=== PATIENT | female | born 1960 | race Caucasian/White ===

== ENCOUNTER → 2019-05-13 09:11 | Outpatient (BNVA) | payer BC, SELFPAY | PROVIDERS: Family Provider Family Medicine; PCP Family Medicine; Visit Provider Nurse Practitioner | DX: F41.0 Panic disorder [episodic paroxysmal anxiety] (principal); F41.1 Generalized anxiety disorder | CPT/HCPCS: 99213 ==

== ENCOUNTER 2019-05-28 17:34 | Inpatient (IN) | payer BC, SELFPAY ==
[2019-05-28] VITALS (31 sets, daily range): BP systolic 77–133; BP diastolic 55–114; PULSE 61–83; RESP 14–18; TEMP 34.3–35.4; O2SAT 81–100; BMI 37.2
--- NOTE | 2019-05-28 17:37 | ED_ITS ---
Entered by Arielle Mackay, acting as scribe for HPI - Overdose General: Chief Complaint: Overdose Stated Complaint: Overdose Time Seen by Provider: 05/28/19 17:37 Source: EMS Mode of arrival: EMS Limitations: other (intubated patient) History of Present Illness: HPI Narrative: 59 yo Female presents to ED intubated by EMS with complaint of overdose. Per EMS, patient made a suicidal threat to a friend/family member who found the patient down and called 911. EMS reports that bystanders were doing CPR on the patient upon their arrival but the patient had a strong pulse the whole time. EMS states that the bystander reported to dispatch that the patient was ineffectually breathing and dispatch instructed the bystander to perform CPR. Per EMS, patient's friend/family reported that the patient must have overdosed on alcohol, oxycodone, and/or xanax. Pt's came to the ED and reports that the patient is an alcoholic and has been trying to quit drinking. Pt's states that when the patient attempts to quit drinking, she gets depressed. Pt's states that the patient was found unresponsive in her car in the driveway by her daughter after the patient stated that she was going to kill herself. Pt's states that there is most likely alcohol and xanax in the patient's system. complaint: intentional overdose : Intent: suicide attempt How Overdose Was Discovered: called family/friend Treatments Prior to Arrival: narcan and other (intubation) Review of Systems General: Reports: ROS unobtainable due to endotracheal tube and ROS unobtainable due to medical condition PFS ED PFSH: Statuses (acute, chronic, etc) shown below reflect problem list status as previously entered and may not be historically accurate Medical History (Updated 05/28/19 @ 22:35 by Gerry Garcia MD, [facility] – [place]) Adhesive capsulitis (Acute) Alcohol abuse (Acute) Anxiety (Acute) Cervical radiculopathy (Acute) Major depressive disorder (Acute) Osteoarthritis of shoulder (Acute) Surgical History (Updated 05/28/19 @ 21:33 by Yolis Champagne MD) No pertinent past surgical history (Acute) Family History (Updated 05/28/19 @ 21:30 by Yolis Champagne MD) Other Hyperlipidemia Hypertension Denies family history of Psychiatric illness Suicide Stroke Social History (Updated 05/28/19 @ 21:31 by Yolis Champagne MD) Smoking and tobacco status: heavy tobacco smoker cigarettes Packs smoked per day: 1 Alcohol intake: current Alcohol intake frequency: few times a week Alcohol type: beer Alcohol use comment: She gets depressive episodes when she drinks alcohol she never had alcohol withdrawal symptoms Substance/Drug Use: never Household members: spouse Housing: House Marital status: Physical Exam Const: COMMON NORMALS: average body habitus and well nourished EXAM LIMI TATIONS: altered mental status ORIENTATION/CONSCIOUSNESS: Yes obtunded HENMT: COMMON NORMALS: normocephalic, head/scalp atraumatic, external ears normal, moist oral mucous membranes, oropharynx normal and gingiva normal HEAD & SCALP: normocephalic and atraumatic EXTERNAL EAR: Yes external ears normal Eye: COMMON NORMALS: PERRL, EOMs intact bilaterally, conjunctivae normal and no scleral icterus CONJUNCTIVA: Yes conjunctivae normal PUPIL: Yes PERRL Chest: COMMONS NORMALS: inspection of chest normal and palpation of chest normal Resp: COMMON NORMALS: no retractions; negative for normal respiratory effort AUSCULTATION: crackles Cardio: COMMON NORMALS: regular rate, regular rhythm, S1 normal heart sound, S2 normal heart sound, no gallops, no clicks, no murmurs, no rub and peripheral pulses 2+ throughout RATE: regular rate RHYTHM: regular rhythm HEART SOUNDS: S1 normal and S2 normal PERIPHERAL PULSES: pulses 2+ throughout GI: COMMON NORMALS: normal to inspection, nondistended, normoactive bowel sounds, soft to palpation, no hepatosplenomegaly, no masses and no bruits PALPATION: Yes soft and Yes no hepatosplenomegaly Extremity: COMMON NORMALS: normal to inspection, full ROM, normal capillary refill, no joint enlargement, no clubbing, cyanosis or edema and no pedal edema Neuro: CYNTHIA COMA SCALE: document GCS findings (sedated by EMS) Skin: COMMON NORMALS: no rashes or lesions noted, no wounds, skin turgor normal, no jaundice, no petechiae and no mottling GENERAL SKIN EXAM: no rashes or lesions noted and turgor normal Procedures Intubation Time out performed: No sedative: none Laryngoscope: Adilene ET Tube Size: 8 ET Tube Uncuffed: No Tube Secured Depth (cm): 24 Tube Secured Location: lips Tube Placement Confirmation: visualized tube passing through cords, equal breath sounds bilaterally, no breath sounds over epigastrium and confirmation by capnometry Patient Tolerated Procedure: well and no complications Intubation Complications: none Course Vital Signs: Vital signs: Vital Signs Temperature 93.7 F L 05/28/19 17:35 Pulse Rate 68 05/28/19 21:44 Respiratory Rate 16 05/28/19 21:44 Blood Pressure 85/55 05/28/19 21:44 Pulse Oximetry 95 05/28/19 21:44 MDM - Overdose MDM Narrative: Medical decision making narrative: 59-year-old female patient who was brought into the emergency department in acute respiratory failure secondary to an undetermined cause. She may have overdosed on some of her benzodiazepines although her drug screen was negative for that. She was intoxicated with alcohol. Her did say that she has a history of alcohol abuse. In the emergency department she was emergently intubated and placed on mechanical ventilation. She had a lot of food debris of particles in her airway. Suction as much as possible. She is admitted to the intensive care unit for further evaluation and management. Significant lab in the emergency department was hypokalemia and a significant delta on her 2-hour troponin. After discussion with the hospitalist we felt that her 2-hour troponin bump was secondary to stress from her illness on her heart and not a true non-STEMI. So she is not anticoagulated for treating a non-STEMI. We wait on her 6-hour troponin. Lab Data: Labs: Lab Results 05/28/19 05/28/19 05/28/19 Range/Units 17:45 18:06 18:06 WBC (4.0-10.0) 10^3/ uL RBC (4.1-5.3) 10^6/u L Hgb (11.5-15.3) g/dL Hct (37.0-47.0) % MCV (81-99) fL MCH (28.0-34.0) pg MCHC (30.0-36.0) g/dL RDW (12.1-15.1) % Plt Count (130-400) 10^3/c mm MPV (7.4-10.4) fL Neut % (Auto) % Lymph % (Auto) % [place] % (Auto) % Eos % (Auto) % Baso % (Auto) % Neut # (Auto) (1.8-7.7) 10^3/u L Lymph # (Auto) (0.8-4.8) 10^3/u L [place] # (Auto) (0.2-0.9) 10^3/u L Eos # (Auto) (0.0-0.8) 10^3/u L Baso # (Auto) (0.0-0.1) 10^3/u L Nucleated RBC % (a uto) % Nucleated RBCs # /100WBC Specimen Type Arterial Sample Site Brachial, right ABG pH 7.23 L (7.35-7.45) ABG pCO2 46.2 H (35-45) mmHg ABG pO2 439.0 H* (80.0-100.0) mmH g ABG HCO3 19.4 L (22-26) mmol/L ABG O2 Saturation 100.0 ABG Base Excess -8.0 L (-2.0-2.0) mmol/ L Chung Test N/a A-a O2 Gradient 211.6 H (5-10) mmHg Hematocrit 40.5 (37-47) % Hgb O2 Saturation 97.1 (95-100) % Carboxyhemoglobin 2.3 (0.4-20.1) %THgb Methemoglobin 0.6 (0.4-1.5) % Total Hemoglobin 13.2 (12-16) g/dL Sodium 143.0 (131-143) mmol/L Potassium 2.8 L (3.5-5.0) mmol/L Glucose 116.0 H (70-115) mg/dL Ionized Calcium 1.1 (1.1-1.4) mmol/L O2 Delivery Device Ambu O2 Liters/Min 15.0 % FiO2 100.0 % Python Django Developer ID gd Chloride (98-107) mmol/L Carbon Dioxide (22-29) mmol/L Anion Gap (5-19) BUN (6-20) mg/dL Creatinine (0.5-0.9) mg/dL GFR Calculation (90-130) mL/min Calcium (8.6-10.0) mg/Dl Total Bilirubin (0.15-1.2) mg/dL AST (0-32) U/L ALT (0-33) U/L Alkaline Phosphata se (35-105) IU/L Troponin T Baselin e (0-10) ng/mL Troponin T 120 Min [place] (0-10) ng/mL Delta Troponin T (0-10) ABS# Total Protein (6.6-8.7) g/dL Albumin (3.5-5.2) g/dL Globulin (1.3-4.6) g/dL Urine Color Straw (Yellow) Urine Appearance Clear (CLEAR) Urine pH 5 (5-7) Ur Specific Gravit y 1.010 (1.005-1.030) Urine Protein Neg (Negative) Urine Glucose (UA) Norm (Normal) Urine Ketones Negative (Negative) Urine Occult Blood Neg (Negative) Urine Nitrate Negative (Negative) Urine Bilirubin Neg (NEGATIVE) Urine Urobilinogen Norm (Negative) mg/dL Ur Leukocyte Trina ase Negative (Negative) Urine Opiates Scre en Negative (Negative) ng/mL Ur Barbiturates Sc reen Negative (Negative) ng/mL Ur Phencyclidine S crn Negative (Negative) ng/mL Ur Amphetamines Sc reen Negative (Negative) ng/mL U Benzodiazepines Scrn Negative (Negative) ng/mL Urine Cocaine Scre en Negative (Negative) ng/mL U Marijuana (THC) Screen Positive H (Negative) ng/mL Ethyl Alcohol (0-10) mg/dL 05/28/19 05/28/19 05/28/19 Range/Units 18:40 18:40 18:40 WBC (4.0-10.0) 10^3/ uL RBC (4.1-5.3) 10^6/u L Hgb (11.5-15.3) g/dL Hct (37.0-47.0) % MCV (81-99) fL MCH (28.0-34.0) pg MCHC (30.0-36.0) g/dL RDW (12.1-15.1) % Plt Count (130-400) 10^3/c mm MPV (7.4-10.4) fL Neut % (Auto) % Lymph % (Auto) % [place] % (Auto) % Eos % (Auto) % Baso % (Auto) % Neut # (Auto) (1.8-7.7) 10^3/u L Lymph # (Auto) (0.8-4.8) 10^3/u L [place] # (Auto) (0.2-0.9) 10^3/u L Eos # (Auto) (0.0-0.8) 10^3/u L Baso # (Auto) (0.0-0.1) 10^3/u L Nucleated RBC % (a uto) % Nucleated RBCs # /100WBC Specimen Type Sample Site ABG pH (7.35-7.45) ABG pCO2 (35-45) mmHg ABG pO2 (80.0-100.0) mmH g ABG HCO3 (22-26) mmol/L ABG O2 Saturation ABG Base Excess (-2.0-2.0) mmol/ L Chung Test A-a O2 Gradient (5-10) mmHg Hematocrit (37-47) % Hgb O2 Saturation (95-100) % Carboxyhemoglobin (0.4-20.1) %THgb Methemoglobin (0.4-1.5) % Total Hemoglobin (12-16) g/dL Sodium 139 (131-143) mmol/L Potassium 2.7 L* (3.5-5.0) mmol/L Glucose 152 H (70-115) mg/dL Ionized Calcium (1.1-1.4) mmol/L O2 Delivery Device O2 Liters/Min % FiO2 % Python Django Developer ID Chloride 99 (98-107) mmol/L Carbon Dioxide 21 L (22-29) mmol/L Anion Gap 21.7 H (5-19) BUN 11 (6-20) mg/dL Creatinine 0.8 (0.5-0.9) mg/dL GFR Calculation 73.4 L (90-130) mL/min Calcium 8.8 (8.6-10.0) mg/Dl Total Bilirubin 0.2 (0.15-1.2) mg/dL AST 34 H (0-32) U/L ALT 24 (0-33) U/L Alkaline Phosphata se 82 (35-105) IU/L Troponin T Baselin e 7 (0-10) ng/mL Troponin T 120 Min [place] (0-10) ng/mL Delta Troponin T (0-10) ABS# Total Protein 6.9 (6.6-8.7) g/dL Albumin 3.9 (3.5-5.2) g/dL Globulin 3.0 (1.3-4.6) g/dL Urine Color (Yellow) Urine Appearance (CLEAR) Urine pH (5-7) Ur Specific Gravit y (1.005-1.030) Urine Protein (Negative) Urine Glucose (UA) (Normal) Urine Ketones (Negative) Urine Occult Blood (Negative) Urine Nitrate (Negative) Urine Bilirubin (NEGATIVE) Urine Urobilinogen (Negative) mg/dL Ur Leukocyte Trina ase (Negative) Urine Opiates Scre en (Negative) ng/mL Ur Barbiturates Sc reen (Negative) ng/mL Ur Phencyclidine S crn (Negative) ng/mL Ur Amphetamines Sc reen (Negative) ng/mL U Benzodiazepines Scrn (Negative) ng/mL Urine Cocaine Scre en (Negative) ng/mL U Marijuana (THC) Screen (Negative) ng/mL Ethyl Alcohol 237 H (0-10) mg/dL 05/28/19 05/28/19 Range/Units 19:15 21:10 WBC 13.9 H (4.0-10.0) 10^3/ uL RBC 3.83 L (4.1-5.3) 10^6/u L Hgb 11.9 (11.5-15.3) g/dL Hct 36.9 L (37.0-47.0) % MCV 96.3 (81-99) fL MCH 31.1 (28.0-34.0) pg MCHC 32.2 (30.0-36.0) g/dL RDW 12.1 (12.1-15.1) % Plt Count 198 (130-400) 10^3/c mm MPV 8.8 (7.4-10.4) fL Neut % (Auto) 78.0 % Lymph % (Auto) 13.7 % [place] % (Auto) 6.0 % Eos % (Auto) 0.6 % Baso % (Auto) 0.4 % Neut # (Auto) 10.9 H (1.8-7.7) 10^3/u L Lymph # (Auto) 1.9 (0.8-4.8) 10^3/u L [place] # (Auto) 0.8 (0.2-0.9) 10^3/u L Eos # (Auto) 0.1 (0.0-0.8) 10^3/u L Baso # (Auto) 0.1 (0.0-0.1) 10^3/u L Nucleated RBC % (a uto) 0 % Nucleated RBCs # 0.0 /100WBC Specimen Type Sample Site ABG pH (7.35-7.45) ABG pCO2 (35-45) mmHg ABG pO2 (80.0-100.0) mmH g ABG HCO3 (22-26) mmol/L ABG O2 Saturation ABG Base Excess (-2.0-2.0) mmol/ L Chung Test A-a O2 Gradient (5-10) mmHg Hematocrit (37-47) % Hgb O2 Saturation (95-100) % Carboxyhemoglobin (0.4-20.1) %THgb Methemoglobin (0.4-1.5) % Total Hemoglobin (12-16) g/dL Sodium (131-143) mmol/L Potassium (3.5-5.0) mmol/L Glucose (70-115) mg/dL Ionized Calcium (1.1-1.4) mmol/L O2 Delivery Device O2 Liters/Min % FiO2 % Python Django Developer ID Chloride (98-107) mmol/L Carbon Dioxide (22-29) mmol/L Anion Gap (5-19) BUN (6-20) mg/dL Creatinine (0.5-0.9) mg/dL GFR Calculation (90-130) mL/min Calcium (8.6-10.0) mg/Dl Total Bilirubin (0.15-1.2) mg/dL AST (0-32) U/L ALT (0-33) U/L Alkaline Phosphata se (35-105) IU/L Troponin T Baselin e (0-10) ng/mL Troponin T 120 Min [place] 20.88 H (0-10) ng/mL Delta Troponin T 13.88 H* (0-10) ABS# Total Protein (6.6-8.7) g/dL Albumin (3.5-5.2) g/dL Globulin (1.3-4.6) g/dL Urine Color (Yellow) Urine Appearance (CLEAR) Urine pH (5-7) Ur Specific Gravit y (1.005-1.030) Urine Protein (Negative) Urine Glucose (UA) (Normal) Urine Ketones (Negative) Urine Occult Blood (Negative) Urine Nitrate (Negative) Urine Bilirubin (NEGATIVE) Urine Urobilinogen (Negative) mg/dL Ur Leukocyte Trina ase (Negative) Urine Opiates Scre en (Negative) ng/mL Ur Barbiturates Sc reen (Negative) ng/mL Ur Phencyclidine S crn (Negative) ng/mL Ur Amphetamines Sc reen (Negative) ng/mL U Benzodiazepines Scrn (Negative) ng/mL Urine Cocaine Scre en (Negative) ng/mL U Marijuana (THC) Screen (Negative) ng/mL Ethyl Alcohol (0-10) mg/dL Imaging Data^: CT Head: Radiologist's impression: [place] [address] CT Scan Report Signed Patient: Ted victoria #: [id number] : 1960Acct#:[id number] Age/Sex: 59 / FADM Date: 05/28/19 Loc: ERRoom/Bed: Attending Dr: Ordering Provider/Ordering MD: Gerry Garcia MD, [facility] – [place] Date of Service: 05/28/19 Procedure(s): CT head wo con* [id number] Accession Number(s): [id number] Report Number: [id number] PROCEDURE INFORMATION: Exam: CT Head Without Contrast Exam date and time: 05/28/2019 7:33 PM Age: 59 years old Clinical indication: Injury or trauma; Fall; Injury history: Od; Additional info: AMS TECHNIQUE: Imaging protocol: Computed tomography of the head without contrast. Total DLP: 951.53 mGy-cm Radiation optimization: All CT scans at this facility use at least one of these dose optimization techniques: automated exposure control; mA and/or kV adjustment per patient size (includes targeted exams where dose is matched to clinical indication); or iterative reconstruction. COMPARISON: No relevant prior studies available. FINDINGS: Brain: There is no evidence of infarct, john-white matter differentiation is preserved. There is no hemorrhage or extra-axial collection. There is no mass. Ventricles: There is no hydrocephalus. Bones/joints: Unremarkable. No acute fracture. Sinuses: There is mucosal thickening in the sinuses. Mastoid air cells: There is a trace of fluid in the right mastoids. Soft tissues: Unremarkable. CT/CT head wo con* [id number] IMPRESSION: No intracranial injury or lesion. Radiation Dose CTDIVOL = (mGy): DLP = 951.53 (mGy-cm) Dictated By:Rocco Diaz MD Signed By:Rocco Diaz Date/Time:05/28/192017 DD/ 15 CT C-Spine: Radiologist's impression: [address] [address] [address] Scan Report Signed Patient: Ted victoria #: [id number] : 1960Acct#:[id number] Age/Sex: 59 / FADM Date: 05/28/19 Loc: ERRoom/Bed: Attending Dr: Ordering Provider/Ordering MD: Gerry Garcia MD, [facility] – [place] Date of Service: 05/28/19 Procedure(s): CT cervical spin wo con* [id number] Accession Number(s): [id number] Report Number: [id number] PROCEDURE INFORMATION: Exam: CT Cervical Spine Without Contrast Exam date and time: 05/28/2019 7:33 PM Age: 59 years old Clinical indication: Injury or trauma; Fall; Injury history: Od; Initial encounter; Blunt trauma TECHNIQUE: Imaging protocol: Computed tomography images of the cervical spine without contrast. Total DLP: 960.48 mGy-cm Radiation optimization: All CT scans at this facility use at least one of these dose optimization techniques: automated exposure control; mA and/or kV adjustment per patient size (includes targeted exams where dose is matched to clinical indication); or iterative reconstruction. COMPARISON: No relevant prior studies available. FINDINGS: Tubes, catheters and devices: The tip of the endotracheal tube is at the dimitry. Vertebrae: No acute fracture. Normal alignment. Discs/Spinal canal/Neural foramina: No spinal stenosis. No neural foraminal narrowing. No significant disc disease. Soft tissues: Unremarkable. Lungs: There are areas of consolidation in the upper lobes. CT/CT cervical spin wo con* [id number] IMPRESSION: 1. No evidence of cervical spine fracture. 2. Tip of endotracheal tube is noted to be at the dimitry and should be retracted 2-3 cm. There are areas of consolidation in the upper lobes. Radiation Dose CTDIVOL = (mGy): DLP = 960.48 (mGy-cm) Dictated By:Rocco Diaz MD Signed By:Rocco Diaz MDSigned Date/Time:05/28/192022 DD/ 21 EKG Data^: EKG 1: Attestation: I personally reviewed and interpreted this EKG as follows: EKG interpretation date: 05/28/19 EKG interpretation time: 18:44 Prior EKG tracings: not available for review Interpretation: Normal sinus rhythm. Heart rate 73. Normal axis. No ST elevation or ST changes. Q waves in V4 V5 V6. Critical Care Time Critical Care Time: Critical Care Time: Yes Total Critical Care Time: 45 Attestation: This case had a high probability of a clinically significant, sudden, or life threatening deterioration of this patient's condition which required my full and direct attention, intervention and personal management. Discharge Plan Discharge Patient Disposition: Admitted As Inpatient Admit Provider: Yolis Champagne Clinical Impression: Respiratory failure requiring intubation, Alcohol abuse, Aspiration pneumonitis Condition: Stable Interventions: ED Discharge Assessment Last Done: 05/28/19 21:44 Discharge Date/Time: 05/28/19 21:49 Coding Level of Care Code ED Screen Cleaner for Chg Fwd Exam Problem Focused The documentation recorded by the Thompson landa Carmen, accurately reflects the service I personally performed and the decisions made by me, Gerry Garcia MD, [facility] – [place], [place] May 28, 2019 17:34
--- NOTE | 2019-05-28 17:48 | XR_ITS ---
WS: [id number] CHEST XRAY TECHNIQUE: Portable chest. CLINICAL INFORMATION: sedation COMPARISON: None. FINDINGS: Tubes/Lines: Endotracheal tube with tip above the dimitry measuring 13 mm. Enteric tube with tip below the diaphragm. Heart: Normal cardiac silhouette. Aortic calcification. Lungs: Lungs are clear. No consolidation or pleural effusion. Chronic emphysematous changes. Bones: Normal visualized bony structures. XR/XR chest 1V portable [id number] IMPRESSION: 1. Endotracheal tube with tip 13 mm above the dimitry. 2. Enteric tube with tip below the diaphragm. 3. No acute pulmonary infiltrates.
--- NOTE | 2019-05-28 17:52 | CTR_ITS ---
PROCEDURE INFORMATION: Exam: CT Head Without Contrast Exam date and time: 05/28/2019 7:33 PM Age: 59 years old Clinical indication: Injury or trauma; Fall; Injury history: Od; Additional info: AMS TECHNIQUE: Imaging protocol: Computed tomography of the head without contrast. Total DLP: 951.53 mGy-cm Radiation optimization: All CT scans at this facility use at least one of these dose optimization techniques: automated exposure control; mA and/or kV adjustment per patient size (includes targeted exams where dose is matched to clinical indication); or iterative reconstruction. COMPARISON: No relevant prior studies available. FINDINGS: Brain: There is no evidence of infarct, john-white matter differentiation is preserved. There is no hemorrhage or extra-axial collection. There is no mass. Ventricles: There is no hydrocephalus. Bones/joints: Unremarkable. No acute fracture. Sinuses: There is mucosal thickening in the sinuses. Mastoid air cells: There is a trace of fluid in the right mastoids. Soft tissues: Unremarkable. CT/CT head wo con* [id number] IMPRESSION: No intracranial injury or lesion. Radiation Dose CTDIVOL = (mGy): DLP = 951.53 (mGy-cm)
--- NOTE | 2019-05-28 17:52 | ECG_ITS ---
Measurements Intervals [place] Rate: 73 P: -10 [place]: 174 QRS: 62 QRSD: 90 T: 44 QT: 395 QTc: 436 SINUS RHYTHM NONSPECIFIC T-WAVE ABNORMALITY No previous ECG available for comparison Electronically Signed On 05-29-2019 20:21:51 SCREEN PRINTING SUPERVISOR by Patricia Pennington M.D. [email or web address]
--- NOTE | 2019-05-28 17:57 | CTR_ITS ---
PROCEDURE INFORMATION: Exam: CT Cervical Spine Without Contrast Exam date and time: 05/28/2019 7:33 PM Age: 59 years old Clinical indication: Injury or trauma; Fall; Injury history: Od; Initial encounter; Blunt trauma TECHNIQUE: Imaging protocol: Computed tomography images of the cervical spine without contrast. Total DLP: 960.48 mGy-cm Radiation optimization: All CT scans at this facility use at least one of these dose optimization techniques: automated exposure control; mA and/or kV adjustment per patient size (includes targeted exams where dose is matched to clinical indication); or iterative reconstruction. COMPARISON: No relevant prior studies available. FINDINGS: Tubes, catheters and devices: The tip of the endotracheal tube is at the dimitry. Vertebrae: No acute fracture. Normal alignment. Discs/Spinal canal/Neural foramina: No spinal stenosis. No neural foraminal narrowing. No significant disc disease. Soft tissues: Unremarkable. Lungs: There are areas of consolidation in the upper lobes. CT/CT cervical spin wo con* [id number] IMPRESSION: 1. No evidence of cervical spine fracture. 2. Tip of endotracheal tube is noted to be at the dimitry and should be retracted 2-3 cm. There are areas of consolidation in the upper lobes. Radiation Dose CTDIVOL = (mGy): DLP = 960.48 (mGy-cm)
[2019-05-28 18:00] LABS: ABG PCO2 46.2 mmHg (35-45); ABG PH Result 7.23 (7.35-7.45); Alveolar-Arterial Oxygen Gradi 211.6 mmHg (5-10); Arterial Blood Gas Hematocrit 40.5 % (37-47); Blood Gas Sample Site Brachial, right; Blood Gas Sample Type Arterial; Carboxyhemoglobin 2.3 %THgb (0.4-20.1); HCO3 ABG 19.4 mmol/L (22-26); HGB O2 Sat 97.1 % (95-100); Ionized Calcium Level - ABG 1.1 mmol/L (1.1-1.4); Methemoglobin 0.6 % (0.4-1.5); Oxygen Device AMBU; Potassium Level - ABG 2.8 mmol/L (3.5-5.0); Total Hemoglobin 13.2 g/dL (12-16)
[2019-05-28 18:27] LABS: Add Urine Microscopic? NO
[2019-05-28 18:32] LABS: Bilirubin Urine Neg (NEGATIVE); Blood Urine Neg (Negative); Glucose Urine UA Norm (Normal); Ketones Urine Negative (Negative); Leukocyte Esterase Urine Negative (Negative); Nitrate Urine Negative (Negative); Protein Urine Neg (Negative); Urine Appearance Clear (CLEAR); Urine Color Straw (Yellow); Urobilinogen Urine Norm (Negative); pH Urine 5 (5-7)
[2019-05-28] MEDS: fentaNYL 50 mcg/mL INJ 2mL 100 MCG IVP (18:42)
[2019-05-28] MEDS: vecuronium 10 mg SDV IV (18:42)
[2019-05-28 18:47] LABS: Amphetamines Screen Urine Negative (Negative); Barbiturates Screen Urine Negative (Negative); Benzodiazepines Screen Urine Negative (Negative); Cocaine Screen Urine Negative (Negative); Opiate Screen Urine Negative (Negative); PCP Screen Urine Negative (Negative); THC Screen Urine Positive (Negative)
[2019-05-28 19:02] LABS: Troponin(5th) Baseline 7 ng/mL (0-10)
[2019-05-28 19:03] LABS: Alanine Aminotransferase 24 U/L (0-33); Albumin Level 3.9 g/dL (3.5-5.2); Alkaline Phosphatase 82 IU/L (35-105); Anion Gap 21.7 (5-19); Aspartate Amino Transferase 34 U/L (0-32); Blood Urea Nitrogen 11 mg/dL (6-20); Calcium 8.8 mg/Dl (8.6-10.0); Carbon Dioxide 21 mmol/L (22-29); Chloride 99 mmol/L (98-107); Glomerular Filtration Rate 73.4 mL/min (90-130); Glucose 152 mg/dL (74-109); Sodium 139 mmol/L (136-145); Total Bilirubin 0.2 mg/dL (0.15-1.2); Total Protein 6.9 g/dL (6.6-8.7)
[2019-05-28] MEDS: propofol 1,000 MG/100 ML INJ 1 MG (19:04)
[2019-05-28 19:14] LABS: Potassium 2.7 mmol/L (3.5-5.1)
[2019-05-28 19:20] LABS: Basophils # 0.1 10^3/uL (0.0-0.1); Basophils % 0.4 %; Eosinophils # 0.1 10^3/uL (0.0-0.8); Eosinophils % 0.6 %; Hematocrit 36.9 % (37.0-47.0); Hemoglobin 11.9 g/dL (11.5-15.3); Lymphocytes # 1.9 10^3/uL (0.8-4.8); Lymphocytes % 13.7 %; Mean Corpuscular HGB Conc 32.2 g/dL (30.0-36.0); Mean Corpuscular Hemoglobin 31.1 pg (28.0-34.0); Mean Corpuscular Volume 96.3 fL (81-99); Mean Platelet Volume 8.8 fL (7.4-10.4); Monocytes # 0.8 10^3/uL (0.2-0.9); Neutrophils # 10.9 10^3/uL (1.8-7.7); Nucleated Red Blood Cells % 0 %; Platelet Count 198 10^3/cmm (130-400); Red Blood Count 3.83 10^6/uL (4.1-5.3); Red Cell Distribution Width 12.1 % (12.1-15.1); White Blood Count 13.9 10^3/uL (4.0-10.0)
[2019-05-28 19:52] LABS: Alcohol Level 237 mg/dL (0-10)
--- NOTE | 2019-05-28 19:52 | ECG_ITS ---
Measurements Intervals [place] Rate: 83 P: 62 VT: 178 QRS: 59 QRSD: 89 T: 44 QT: 456 QTc: 538 SINUS RHYTHM PROLONGED QT INTERVAL No previous ECG available for comparison Electronically Signed On 05-29-2019 20:32:04 MOLECULAR BIOLOGY PROFESSOR by Patricia Pennington M.D. [email or web address]
[2019-05-28] MEDS: piperacillin-tazobactam 3.375 GM in sodium chloride 0.9% (plus) 50 ML IV (20:43)
[2019-05-28] MEDS: sodium chloride 0.9% 1,000 ML 100 ML IV (21:20)
--- NOTE | 2019-05-28 21:23 | P.HP_ITS ---
Providers/Chief Complaint Admitting Physician: Yolis Champagne MD Chief Complaint: Overdose History of Present Illness sandra victoria is a 59 year old female who carries diagnosis of major depressive disorder, alcohol abuse, anxiety, osteoarthritis, cervical radiculopathy was brought in by EMS when she was found unresponsive on her driveway. and daughter is at the bedside. Daughter is stating that she got a phone call from 1 of the neighbors regarding her mother's concerning condition while she was in her car in her driveway. When her daughter checked up on her she was awake and coherent, but she seemed a little bit lethargic and drowsy she attributed her symptoms secondary to alcohol intake, she went back in her car to wait for her father to come home. Within 5 to 10 minutes her breathing got worse and she became unresponsive, her started CPR on her for about 8 to 10 minutes until EMS arrived. She had palpable pulse with soft blood pressures and hypothermia, she was brought to [facility] ER. She was intubated by ER physician for her inability to protect her airways. When I examined the patient she was opening her eyes and moving her arms, blood pressure was fluctuating between systolic 96-1 10, fentanyl was added on top of propofol, she had ventilator settings 450, PEEP of 8, FiO2 45% At the bedside norepinephrine and Zosyn were running She received 3 L of normal saline During intubation for particles were found in her mouth Family stating that she only takes Xanax she never does marijuana however she smokes 1 pack/day, I requested lab to take another look at her urine tox because it is negative for benzodiazepine and positive for marijuana CT scan is showing infiltrates in upper zone is stating that she drinks on and off but when she drinks she gets depressed and sometimes talks about suicidal ideation otherwise she enjoys her work and she has been a hairdresser for a long time, no recent social stressors Review of Systems General: Reports: ROS unobtainable due to endotracheal tube Medications/Allergies Allergies Allergy/AdvReac Type Severity Reaction Status Date / Time No Known Allergies Allergy Verified 05/28/19 17:48 PFSH Acute PFSH: Statuses (acute, chronic, etc) shown below reflect problem list status as previously entered and may not be historically accurate Medical History (Updated 05/28/19 @ 21:29 by Yolis Champagne MD) Adhesive capsulitis (Acute) Alcohol abuse (Acute) Anxiety (Acute) Cervical radiculopathy (Acute) Major depressive disorder (Acute) Osteoarthritis of shoulder (Acute) Surgical History (Updated 05/28/19 @ 21:33 by Yolis Champagne MD) No pertinent past surgical history (Acute) Family History (Updated 05/28/19 @ 21:30 by Yolis Champagne MD) Other Hyperlipidemia Hypertension Denies family history of Psychiatric illness Suicide Stroke Social History (Updated 05/28/19 @ 21:31 by Yolis Champagne MD) Smoking and tobacco status: heavy tobacco smoker cigarettes Packs smoked per day: 1 Alcohol intake: current Alcohol intake frequency: few times a week Alcohol type: beer Alcohol use comment: She gets depressive episodes when she drinks alcohol she never had alcohol withdrawal symptoms Substance/Drug Use: never Household members: spouse Housing: House Marital status: Vitals/I&O/Wt Last Vital Signs Temp 93.7 F L 05/28/19 17:35 Pulse 67 05/28/19 21:15 Resp 16 05/28/19 19:23 BP 102/80 05/28/19 21:15 Pulse Ox 100 05/28/19 21:15 05/28/19 05/28/19 05/28/19 06:59 14:59 22:59 Intake Total 117.734 / 117.734 Balance 117.734 / 117.734 Weight last 48 hrs Weight 95.254 kg Physical Exam Narrative: EXAM NARRATIVE: Patient is intubated and sedated with propofol and fentanyl CMV ventilator PEEP 8, FiO2 45%, tidal volume 450 At the bedside Levophed, fentanyl, propofol, Zosyn is running Patient is opening her eyes able to follow my commands, moving her upper extremities, Cervical collar has been removed, no apparent facial trauma Atraumatic normocephalic scalp Sluggish to respond pupils doll's eye movement present Gag reflex positive Bilateral assisted breath sounds with rhonchi present bilaterally Abdomen soft nontender nondistended bowel sounds present No apparent gross abnormalities of her extremities No signs of ischemia gangrene or ulcers on her skin exam Urinary Catheter Management^: More: Cath Placed During This Visit: no Data : 05/28/19 19:15 05/28/19 18:40 Micro: Microbiology 05/28/19 18:10 Gram Stain - Final Sputum - Endotracheal Tube Aspirate A&P Assessment and plan (1) Alcohol abuse: Status: Acute Code(s): F10.10 - Alcohol abuse, uncomplicated (2) Smoker: Status: Acute Code(s): F17.200 - Nicotine dependence, unspecified, uncomplicated (3) Hypokalemia: Status: Acute Code(s): E87.6 - Hypokalemia (4) Respiratory failure requiring intubation: Status: Acute Code(s): J96.90 - Respiratory failure, unspecified, unspecified whether with hypoxia or hypercapnia (5) Aspiration pneumonitis: Status: Acute Code(s): J69.0 - Pneumonitis due to inhalation of food and vomit Additional A&P Information Acute hypercapnic respiratory failure Patient is intubated and sedated for her inability to protect her airways Patient is currently doing well on CMV ventilator settings PEEP 8, FiO2 45%, blood gas has been reviewed which is showing hyperoxygenation, I have reduced PEEP to 5 with FiO2 less than 40% Currently requiring vasopressors for blood pressure support, she got 2 L of normal saline in ER, I will keep her on normal saline at 75 mL/h, titrate off propofol and use fentanyl for sedation Aspiration pneumonia Secondary to inability to protect airways We will cover her with Zosyn for now She meets sepsis criteria with leukocytosis, low-grade temperature, and evidence of infiltrates on chest imaging Acute on chronic alcohol abuse Family stating that she drinks on and off and when she drinks she gets very depressive and sometimes suicidal After extubation needs psych consult Not sure at the moment whether she had any suicidal ideation or planning 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 no recent social stressors She takes alprazolam 1 mg 3 times a day on as-needed basis, she does not take marijuana I have asked lab to take another look at her U tox CIWA protocol Thiamine and folic acid Blood alcohol level 237 without history of intubation or withdrawal seizures in the past Mild increase in troponin I believe this is secondary to her alcohol induced stress on her myocardium, will repeat EKG and wait for 6-hour delta troponin Metabolic acidosis with respiratory decompensation secondary to alcohol abuse with concomitant use of Xanax I will check lactic acid Hypokalemia: Repleted, will check mag level Full code DVT prophylaxis: Lovenox Will need psych evaluation after extubation Attestations Medical Necessity Statement*: Anticipating her stay to cross more than 2 midnights because of respiratory failure and alcohol abuse Time Spent in Patient Care: (>than 50% of time spent in counselling and/or direct pt care on unit) . 45 Coding Level of Care Code Acute Anesthesiology Physician Assistant for Jason Fwd Diagnoses Alcohol abuse F10.10 Smoker F17.200 Hypokalemia E87.6 Respiratory failure requiring intubation J96.90 Aspiration pneumonitis J69.0
[2019-05-28 21:27] LABS: Troponin 5 2HR 20.88 ng/mL (0-10)
[2019-05-28 21:35] LABS: Troponin 5 2HR Delta 13.88 ABS# (0-10)
[2019-05-28 23:25] LABS: Lactic Acid 3.6 mmol/L (0.5-2.2); Lipase 12 U/L (13-60); Magnesium 1.8 mg/dL (1.7-2.3); Phosphorus 2.3 mg/dL (2.5-4.5)
[2019-05-28] MEDS: enoxaparin 40 mg/0.4 mL Syringe SUBCUT (23:25)
[2019-05-28] MEDS: sodium chloride 0.9% 1,000 ML 75 ML IV (23:26)
[2019-05-28] MEDS: propofol 1,000 MG/100 ML INJ 28.6 MG IV (23:30)
[2019-05-29] VITALS (187 sets, daily range): BP systolic 78–145; BP diastolic 44–90; PULSE 71–103; RESP 14–22; TEMP 36.4–38.8; O2SAT 91–100
[2019-05-29 00:08] LABS: Troponin 5 6HR 15.72 ng/L (0-10); Troponin 5 6HR Delta 8.72 ng/L (0-12)
[2019-05-29 00:45] LABS: ABG PCO2 29.6 mmHg (35-45); ABG PH Result 7.37 (7.35-7.45); Arterial Blood Gas Hematocrit 39.5 % (37-47); Base Excess ABG -6.8 mmol/L (-2.0-2.0); Blood Gas Allen Test Pos; Blood Gas Sample Site Radial, right; Blood Gas Sample Type Arterial; Blood Gas Tidal Volume 0.45; HCO3 ABG 17.2 mmol/L (22-26); Oxygen Device VENT
[2019-05-29 02:39] LABS: Glucose Point of Care 105 mg/dL (70-110)
[2019-05-29] MEDS: LORazepam 2 mg/mL INJ 1 mL IVP (02:51)
[2019-05-29 03:14] LABS: Basophils % 0.2 %; Eosinophils % 0.1 %; Hematocrit 38.7 % (37.0-47.0); Hemoglobin 12.5 g/dL (11.5-15.3); Lymphocytes # 3.8 10^3/uL (0.8-4.8); Lymphocytes % 20.6 %; Mean Corpuscular HGB Conc 32.3 g/dL (30.0-36.0); Mean Corpuscular Hemoglobin 30.7 pg (28.0-34.0); Mean Corpuscular Volume 95.1 fL (81-99); Mean Platelet Volume 8.6 fL (7.4-10.4); Monocytes # 0.9 10^3/uL (0.2-0.9); Monocytes % 4.8 %; Neutrophils # 13.7 10^3/uL (1.8-7.7); Neutrophils % 73.8 %; Nucleated Red Blood Cells % 0 %; Platelet Count 274 10^3/cmm (130-400); Red Blood Count 4.07 10^6/uL (4.1-5.3); Red Cell Distribution Width 12.3 % (12.1-15.1); White Blood Count 18.6 10^3/uL (4.0-10.0)
[2019-05-29 03:27] LABS: Alanine Aminotransferase 25 U/L (0-33); Albumin Level 3.5 g/dL (3.5-5.2); Alkaline Phosphatase 71 IU/L (35-105); Aspartate Amino Transferase 30 U/L (0-32); Blood Urea Nitrogen 7 mg/dL (6-20); Calcium 8.3 mg/Dl (8.6-10.0); Carbon Dioxide 18 mmol/L (22-29); Chloride 105 mmol/L (98-107); Globulin 2.5 g/dL (1.3-4.6); Glomerular Filtration Rate 126.3 mL/min (90-130); Glucose 99 mg/dL (74-109); Sodium 139 mmol/L (136-145); Total Bilirubin 0.2 mg/dL (0.15-1.2)
[2019-05-29 03:28] LABS: Lactic Acid 1.9 mmol/L (0.5-2.2)
--- NOTE | 2019-05-29 03:42 | PC.NURSE ---
DR JUN ALTAMIRANO WAS CALLED, PT THRASHING IN BED. PT SCORED ON CIWA, ATIVAN WAS GIVEN. NO NEW ORDERS WHERE GIVEN.
[2019-05-29] MEDS: piperacillin-tazobactam 3.375 GM in sodium chloride 0.9% (plus) 50 ML IV ×3 (04:33→20:37)
[2019-05-29] MEDS: propofol 1,000 MG/100 ML INJ 28.6 MG IV (04:56)
[2019-05-29 05:30] LABS: ABG PCO2 39.4 mmHg (35-45); ABG PH Result 7.33 (7.35-7.45); Arterial Blood Gas Hematocrit 38.7 % (37-47); Base Excess ABG -4.9 mmol/L (-2.0-2.0); Blood Gas Allen Test Pos; Blood Gas Sample Site Radial, right; Blood Gas Sample Type Arterial; Blood Gas Tidal Volume 0.4; HCO3 ABG 20.7 mmol/L (22-26); Oxygen Device VENT; PO2 ABG 88.2 mmHg (80.0-100.0)
--- NOTE | 2019-05-29 06:38 | PC.NURSE ---
SHIFT SUMMARY PT HAS REMAINED INTUBATED. PT HAS BEEN FEBRILE. DR ALTAMIRANO AWARE AND ORDERING BLOOD CULTURES. PT LUNGS REMAIN COARSE AT TIMES. PT HAS BEEN THRASHING AROUND IN BED AT TIMES. PT HAS HAD ADEQUATE URINE OUTPUT.
--- NOTE | 2019-05-29 08:30 | US_ITS ---
WS: [id number] RIGHT UPPER QUADRANT ULTRASOUND HISTORY: ruq pain COMPARISON: None available. Liver: 14.1 cm in length. Normal size liver. No mass or intrahepatic dilatation. Gallbladder: Normally distended gallbladder with no stones or wall thickening. CBD: 3.8 mm Pancreas: Not visualized. Right kidney: Mild atrophy. No hydronephrosis. No solid mass. Normal echogenicity with no mass or hy dronephrosis. Aorta and IVC: Unremarkable. No ascites. US/US abdomen limited [id number] IMPRESSION: 1. Negative gallbladder. 2. No bile duct dilatation.
[2019-05-29] MEDS: ipratropium-albuterol 3 mL Neb INHALATION ×4 (08:51→23:07)
--- NOTE | 2019-05-29 08:59 | PC.PHAR ---
Vancomycin dosing per Pharmacy 1500mg Q8h Patient: Floor: Age: 59 yo Serum creatinine: 0.5 mg/dL Height: 63.0 Inches Weight (kg): 95 IBW (kg): 52.40 Dosing wt(kg): 95 Estimated Creatinine clearance (ml/min): 130 Clearance limited to 130 ml/min to reduce risk of overdosing. CRCL method: Cockcroft and Gault using adjusted body weight Drug selected: Vancomycin Loading dose (mg): Vd (liters): 66.5 (factor used: 0.7 L/kg) Luis (hr-1): 0.112 Half life (hrs): 6.19 CLvanco= 7.448 L/hr Recommended dose: 1500 mg Interval: 8 hrs Infusion time (hrs): 1 Predicted peak (mcg/mL): 36.1 Predicted trough (mcg/mL): 16.48 Total body weight is being used for vancomycin dosing. Recommendations: Give Vancomycin 1500 mg q 8 hrs with an expected Cpeak of 36.1 mcg/ml and an expected Ctrough of 16.48 mcg/ml
[2019-05-29] MEDS: folic acid 1 mg Tablet PO (09:13)
[2019-05-29] MEDS: chlordiazePOXIDE 10 mg Capsule PO ×3 (09:13→20:40)
[2019-05-29] MEDS: multivitamin therapeutic Tablet 1 TAB PO (09:13)
[2019-05-29] MEDS: thiamine 100 mg Tablet PO (09:13)
[2019-05-29] MEDS: pantoprazole 40 mg SDV IVP (09:14)
--- NOTE | 2019-05-29 10:24 | PC.NURSE ---
Betasept held at this time per Dr. Sheehan as no instructions were given for order from Dr. Champagne. Non-admin medication at this time.
[2019-05-29] MEDS: acetaminophen 325 mg Tablet 650 MG PO ×2 (10:27→16:57)
[2019-05-29] MEDS: sodium chloride 0.9% 1,000 ML 75 ML IV (11:01)
--- NOTE | 2019-05-29 11:41 | PC.NURSE ---
MAP noted to be below 65 at this time. (59), Rechecked per physician orders at this time. MAP below 65 per recheck. Patient bolused with Lactated Ringer at this time per physician order. Will monitor pressure closely.
--- NOTE | 2019-05-29 11:59 | PC.NURSE ---
After 250ml bolus (half the 500 bolus), MAP noted to be 57. Physician notified at this time. Verbal order received to start Levophed at low dose, complete first bolus, bolus another 500ml of lactated ringer, and then apply cheetah devise.
[2019-05-29] MEDS: lactated ringers 500 ML 999 ML IV (12:02)
[2019-05-29 14:07] LABS: Influenza A by IFA Negative (Negative); Influenza B by IFA Negative (Negative)
[2019-05-29 14:41] LABS: Lactic Acid 1.3 mmol/L (0.5-2.2)
--- NOTE | 2019-05-29 15:13 | PC.RESP ---
Patient given smoking cessation information.
--- NOTE | 2019-05-29 16:19 | PM.PN ---
Subjective Subjective: Interval history: Currently patient intubated, on a ventilator, is on minimal sedation, she opens her eyes to commands, follows commands, she actually wrote a couple of questions for me on a note pad, asks me what happened to her as she is not sure, tells me she uses trazodone once daily, alprazolam 3 times daily. Patient continues to to be febrile, T-max 101.8, on broad-spectrum antibiotics, CT cervical spine shows consolidation of bilateral upper lobes concerning for aspiration pneumonia. Patient was taken off levoped, did not adequately respond to fluid boluses, SV delta 5.7, placed back on Levophed, only minimal going, map greater than 65, last lactic acid 1.3 Vitals/I&O/Wt Last Vital Signs Temp 100.9 F H 05/29/19 14:20 Pulse 83 05/29/19 16:15 Resp 16 05/29/19 15:26 BP 126/88 05/29/19 16:15 Pulse Ox 98 05/29/19 16:15 05/29/19 05/29/19 05/29/19 06:59 14:59 22:59 Intake Total 1158.704 / 2737.776 3605.833 / 1288.833 Output Total 950 / 950 Balance 208.704 / 834.409 5831.833 / 1288.833 Weight last 48 hrs Weight 95.254 kg Physical Exam Const: COMMON NORMALS: no apparent distress and oriented x3 HENMT: COMMON NORMALS: normocephalic HEAD & SCALP: normocephalic Neck/C-Spine: COMMON NORMALS: no JVD Chest: COMMONS NORMALS: inspection of chest normal Resp: COMMON NORMALS: normal respiratory effort AUSCULTATION: wheezes inspiratory wheezes, left upper and right upper Cardio: COMMON NORMALS: no JVD, regular rate, regular rhythm, S1 normal heart sound and S2 normal heart sound RATE: regular rate RHYTHM: regular rhythm HEART SOUNDS: S1 normal and S2 normal GI: COMMON NORMALS: normal to inspection, nondistended, normoactive bowel sounds, soft to palpation, no hepatosplenomegaly, no masses and no bruits PALPATION: Yes soft and Yes no hepatosplenomegaly Extremity: COMMON NORMALS: normal capillary refill, no clubbing, cyanosis or edema, no calf tenderness and no pedal edema Neuro: COMMON NORMALS: oriented x3 Psych: COMMON NORMALS: mental status grossly normal Urinary Catheter Management^: More: Cath Placed During This Visit: no Sepsis: Is patient septic: Yes Focused sepsis exam performed: Yes Date exam was performed: 05/29/19 Time exam was performed: 07:56 Data : 05/29/19 03:02 05/29/19 03:02 Micro: Microbiology 05/29/19 08:28 Blood Culture - Preliminary Blood SPECIMEN COLLECTED 05/29/19 08:33 Blood Culture - Preliminary Blood SPECIMEN COLLECTED 05/28/19 18:10 Gram Stain - Final Sputum - Endotracheal Tube Aspirate A&P Assessment and plan (1) Respiratory failure requiring intubation: -Acute hypoxic respiratory failure with sepsis secondary to aspiration pneumonia and alcohol and benzodiazepine overdose Plan: -Maintain map greater than 65, levophed only minimal at 2 -Ventilator, minimize PEEP, minimize FiO2 -Protonix, Tylenol for fevers, Lovenox for DVT prophylaxis -Broad-spectrum antibiotics vancomycin and Zosyn -On Precedex drip -Librium for withdrawal -Patient is clinically doing well, able to answer questions on minimal sedation, hopefully will extubate tomorrow morning -More catheter in place -Urine cultures, blood cultures Status: Acute Code(s): J96.90 - Respiratory failure, unspecified, unspecified whether with hypoxia or hypercapnia (2) Alcohol abuse: -Poison control has been contacted, advised to continue interventions as above Status: Acute Code(s): F10.10 - Alcohol abuse, uncomplicated (3) Smoker: Status: Acute Code(s): F17.200 - Nicotine dependence, unspecified, uncomplicated (4) Hypokalemia: Improved to 4.0 Status: Acute Code(s): E87.6 - Hypokalemia (5) Aspiration pneumonitis: Status: Acute Code(s): J69.0 - Pneumonitis due to inhalation of food and vomit (6) Sepsis: Status: Acute Qualifiers: Sepsis type: sepsis due to unspecified organism Sepsis acute organ dysfunction status: without acute organ dysfunction Qualified Code(s): A41.9 - Sepsis, unspecified organism Code(s): A41.9 - Sepsis, unspecified organism (7) Alcohol overdose: Status: Acute Code(s): T51.91XA - Toxic effect of unspecified alcohol, accidental (unintentional), initial encounter (8) Benzodiazepine overdose: Status: Acute Code(s): T42.4X1A - Poisoning by benzodiazepines, accidental (unintentional), initial encounter Attestations Medical Necessity Statement*: Patient requires continued hospitalization, acute respiratory failure and sepsis secondary to aspiration pneumonia, Coding Level of Care Code Acute Standpipe Tender for g Fwd Diagnoses Respiratory failure requiring intubation J96.90 Alcohol abuse F10.10 Smoker F17.200 Hypokalemia E87.6 Aspiration pneumonitis J69.0 Sepsis A41.9 Sepsis type: sepsis due to unspecified organism Sepsis acute organ dysfunction status: without acute organ dysfunction Alcohol overdose T51.91XA Benzodiazepine overdose T42.4X1A Sepsis Event Note Evaluation Current stage of sepsis: sepsis Initial hypotension due to sepsis/infection: MAP < 65 mmHg Possible source: pulmonary Focused Exam Vital Signs Temp Pulse Resp BP Pulse Ox 05/29/19 16:15 83 126/88 98 05/29/19 16:10 83 126/88 98 05/29/19 16:05 83 126/88 98 05/29/19 16:00 83 126/90 97 05/29/19 15:55 84 126/90 97 05/29/19 15:50 85 126/90 98 05/29/19 15:45 84 113/72 97 05/29/19 15:40 84 113/72 97 05/29/19 15:35 85 113/72 97 05/29/19 15:30 85 130/82 98 05/29/19 15:26 16 05/29/19 15:25 89 130/82 100 05/29/19 15:20 86 130/82 98 05/29/19 15:15 87 124/74 98 05/29/19 15:10 88 124/74 99 05/29/19 15:05 87 124/74 98 05/29/19 15:00 88 122/66 98 05/29/19 14:55 87 122/66 98 05/29/19 14:50 90 122/66 99 05/29/19 14:45 89 127/70 98 05/29/19 14:40 90 127/70 98 05/29/19 14:35 90 127/70 98 05/29/19 14:30 91 123/71 98 05/29/19 14:25 91 123/71 98 05/29/19 14:20 100.9 F H 92 123/71 98 05/29/19 14:15 93 122/68 98 05/29/19 14:10 93 122/68 98 05/29/19 14:05 94 122/68 97 05/29/19 14:00 93 113/67 97 05/29/19 13:55 94 113/67 97 05/29/19 13:50 94 113/67 97 05/29/19 13:45 92 111/70 98 05/29/19 13:40 90 111/70 98 05/29/19 13:35 87 111/70 98 05/29/19 13:30 83 127/78 98 05/29/19 13:25 80 127/78 98 05/29/19 13:20 79 127/78 99 05/29/19 13:19 79 05/29/19 13:16 83 16 99 05/29/19 13:15 85 123/76 99 05/29/19 13:10 79 123/76 98 05/29/19 13:09 15 05/29/19 13:05 81 123/76 99 05/29/19 13:00 100.2 F H 79 117/79 99 05/29/19 12:55 82 117/79 96 05/29/19 12:50 78 117/79 99 05/29/19 12:45 79 114/75 99 05/29/19 12:40 78 114/75 99 05/29/19 12:35 79 114/75 99 05/29/19 12:30 80 105/54 100 05/29/19 12:25 77 105/54 99 05/29/19 12:20 79 105/54 100 05/29/19 12:15 79 93/45 99 05/29/19 12:10 77 93/45 99 05/29/19 12:05 76 93/45 99 05/29/19 12:00 73 78/47 98 05/29/19 11:55 77 78/47 99 05/29/19 11:50 75 81/44 99 05/29/19 11:45 74 85/46 98 05/29/19 11:40 77 85/46 99 05/29/19 11:37 16 05/29/19 11:35 83 85/46 98 05/29/19 11:30 77 96/58 98 05/29/19 11:25 78 96/58 97 05/29/19 11:20 79 96/58 97 05/29/19 11:15 87 88/55 99 05/29/19 11:10 88 88/55 98 05/29/19 11:05 77 88/55 98 05/29/19 11:00 100.0 F H 78 95/61 98 05/29/19 10:55 78 95/61 98 05/29/19 10:50 100.6 F H 80 95/61 98 05/29/19 10:45 81 107/62 97 05/29/19 10:40 89 107/62 98 05/29/19 10:35 87 107/62 98 05/29/19 10:30 85 81/49 97 05/29/19 10:25 89 81/49 97 05/29/19 10:20 87 81/49 99 05/29/19 10:15 82 97/55 97 05/29/19 10:10 84 97/55 96 05/29/19 10:05 86 97/55 96 05/29/19 10:00 86 98/49 97 05/29/19 09:55 85 98/49 98 05/29/19 09:50 85 98/49 97 05/29/19 09:45 87 98/56 96 05/29/19 09:40 96 98/56 98 05/29/19 09:35 87 98/56 97 05/29/19 09:30 87 99/56 97 05/29/19 09:25 92 99/56 97 05/29/19 09:22 16 05/29/19 09:20 93 99/56 97 05/29/19 09:15 93 122/74 98 05/29/19 09:10 89 122/74 97 05/29/19 09:05 92 122/74 97 05/29/19 09:00 98 107/59 98 05/29/19 08:55 101.5 F H 89 107/59 97 05/29/19 08:52 93 16 96 05/29/19 08:50 92 107/59 97 05/29/19 08:45 92 102/58 97 05/29/19 08:40 101 H 102/58 98 05/29/19 08:35 96 102/58 98 05/29/19 08:30 84 105/81 99 05/29/19 08:25 82 105/81 99 05/29/19 08:20 76 105/81 99 05/29/19 08:15 74 113/57 99 05/29/19 08:10 74 113/57 99 05/29/19 08:05 75 113/57 98 05/29/19 08:00 75 105/59 99 05/29/19 07:55 76 105/59 99 05/29/19 07:50 76 105/59 99 05/29/19 07:45 78 102/58 99 05/29/19 07:40 80 102/58 99 05/29/19 07:35 83 102/58 99 05/29/19 07:30 85 99 05/29/19 07:25 86 99 05/29/19 07:20 99 100 05/29/19 07:15 98 22 H 100/63 96 05/29/19 07:10 79 100/63 99 05/29/19 07:05 81 100/63 99 05/29/19 07:00 81 112/56 99 05/29/19 06:55 80 112/56 98 05/29/19 06:50 83 112/56 98 05/29/19 06:45 85 110/47 98 05/29/19 06:40 86 110/47 98 05/29/19 06:35 103 H 135/69 100 05/29/19 06:30 103 H 94/55 91 05/29/19 06:25 91 94/55 100 05/29/19 06:20 79 94/55 99 05/29/19 06:15 81 107/60 99 05/29/19 06:10 81 107/60 99 05/29/19 06:05 83 107/60 99 05/29/19 06:00 101.8 F H 86 17 110/54 99 05/29/19 05:58 17 05/29/19 05:55 87 110/54 99 05/29/19 05:50 88 110/54 98 05/29/19 05:45 88 111/66 100 05/29/19 05:40 91 99 05/29/19 05:35 89 99 05/29/19 05:30 90 114/63 99 05/29/19 05:25 94 114/63 99 05/29/19 05:20 101 H 114/63 95 05/29/19 05:15 99 97 05/29/19 05:10 98 99 05/29/19 05:05 100 99 05/29/19 05:00 95 130/78 100 05/29/19 04:55 96 130/78 99 05/29/19 04:50 93 130/78 98 Respiratory exam: Present patient mechanically ventilated and wheezes Cardiovascular exam: Present RRR, S1 and S2 Capillary refill: < 3 Seconds Peripheral pulse strength: 3+ Normal Peripheral pulse location: Pedal Skin exam: normal turgor Date exam was performed: 05/29/19 Time exam was performed: 16:24 Problem List (1) Alcohol abuse: Current Visit: Yes Status: Acute (2) Smoker: Current Visit: Yes Status: Acute (3) Hypokalemia: Current Visit: Yes Status: Acute (4) Respiratory failure requiring intubation: Current Visit: Yes Status: Acute (5) Aspiration pneumonitis: Current Visit: Yes Status: Acute (6) Sepsis: Current Visit: Yes Status: Acute (7) Alcohol overdose: Current Visit: Yes Status: Acute (8) Benzodiazepine overdose: Current Visit: Yes Status: Acute
--- NOTE | 2019-05-29 18:34 | PC.NURSE ---
Patients ventilator noted to be alarming at 1832. This nurse went into room to find patient with ET tube in lap. Oxygen saturation noted to be 89 at this time. Nasal Canula applied at this time. Oxygen saturation noted to be 94%. Patient sat up in bed and respiratory therapists at her side. Physician notified.
[2019-05-29 20:11] LABS: Lactic Acid 1.6 mmol/L (0.5-2.2)
[2019-05-29] MEDS: enoxaparin 40 mg/0.4 mL Syringe SUBCUT (23:33)
[2019-05-30] VITALS (25 sets, daily range): BP systolic 93–127; BP diastolic 46–81; PULSE 85–106; RESP 14–24; TEMP 36.8–38.1; O2SAT 95–99
[2019-05-30 00:44] LABS: Lactic Acid 1.4 mmol/L (0.5-2.2)
[2019-05-30] MEDS: sodium chloride 0.9% 1,000 ML 75 ML IV ×2 (01:08→15:44)
[2019-05-30] MEDS: chlordiazePOXIDE 10 mg Capsule PO ×4 (02:19→20:32)
[2019-05-30] MEDS: piperacillin-tazobactam 3.375 GM in sodium chloride 0.9% (plus) 50 ML IV ×3 (04:27→20:32)
[2019-05-30] MEDS: acetaminophen 325 mg Tablet 650 MG PO ×2 (06:25→22:47)
[2019-05-30 06:27] LABS: Basophils # 0.1 10^3/uL (0.0-0.1); Basophils % 0.5 %; Eosinophils # 0.1 10^3/uL (0.0-0.8); Hematocrit 34.6 % (37.0-47.0); Lymphocytes # 1.6 10^3/uL (0.8-4.8); Lymphocytes % 14.8 %; Mean Corpuscular HGB Conc 31.8 g/dL (30.0-36.0); Mean Corpuscular Hemoglobin 30.8 pg (28.0-34.0); Mean Corpuscular Volume 96.9 fL (81-99); Mean Platelet Volume 8.9 fL (7.4-10.4); Monocytes # 0.8 10^3/uL (0.2-0.9); Monocytes % 7.5 %; Neutrophils # 8.3 10^3/uL (1.8-7.7); Neutrophils % 75.6 %; Nucleated Red Blood Cells % 0 %; Platelet Count 161 10^3/cmm (130-400); Red Blood Count 3.57 10^6/uL (4.1-5.3); Red Cell Distribution Width 13.1 % (12.1-15.1)
[2019-05-30 06:42] LABS: Alanine Aminotransferase 23 U/L (0-33); Albumin Level 3.2 g/dL (3.5-5.2); Alkaline Phosphatase 63 IU/L (35-105); Anion Gap 15.3 (5-19); Aspartate Amino Transferase 31 U/L (0-32); Blood Urea Nitrogen 16 mg/dL (6-20); C Reactive Protein 193.3 mg/L (0.0-4.9); Carbon Dioxide 21 mmol/L (22-29); Chloride 107 mmol/L (98-107); Globulin 2.8 g/dL (1.3-4.6); Glomerular Filtration Rate 27.1 mL/min (90-130); Glucose 110 mg/dL (74-109); Magnesium 1.8 mg/dL (1.7-2.3); Phosphorus 3.5 mg/dL (2.5-4.5); Potassium 4.3 mmol/L (3.5-5.1); Sodium 139 mmol/L (136-145); Total Bilirubin 0.4 mg/dL (0.15-1.2)
--- NOTE | 2019-05-30 06:42 | PC.NURSE ---
Fentanyl drip taken down. 51.8 mLs wasted in sharps. Witnessed by ANIVAL Mcclellan.
[2019-05-30 06:43] LABS: Lactic Acid 0.9 mmol/L (0.5-2.2)
--- NOTE | 2019-05-30 07:00 | XR_ITS ---
WS: [id number] PORTABLE CHEST HISTORY: sob COMPARISON: 05/28/2019 Slight elevation of the RIGHT hemidiaphragm. Lungs are clear. Normal vasculature. No pleural effusion or pneumothorax. Cardiac size: Normal. Mediastinum/Aorta: Normal mediastinum. No osseous abnormality seen. XR/XR chest 1V portable [id number] IMPRESSION: Unremarkable portable chest.
[2019-05-30 07:31] LABS: Acetaminophen < 5.0 ug/mL (10-30); Salicylate < 0.3 mg/dL (3-10)
[2019-05-30] MEDS: ipratropium-albuterol 3 mL Neb INHALATION (07:39)
[2019-05-30 07:49] LABS: Procalcitonin > 100.00 ng/mL (0-0.8)
--- NOTE | 2019-05-30 09:36 | PC.CHAP ---
Pastoral Care Encounter/Spiritual Assessment Type of Contact [] Declined supervisor pipeline maintenance visit [] Patient/Family/Request visit [] Outpatient visit [] Follow-up visit [] Physician referral [] Code/Alert [] Routine visit [] Staff referral [] Actively dying [] Patient sleeping [x] Family support [] [] Out of room [] Palliative care [] [] Receiving care in room [] Pre-surgical visit [] Trauma [] Long length of stay [] ICU visit [] Other: Relational/Emotional Strength [] Patient feels connected with others/family/visitors/staff [] Distress [] Loneliness/isolation [] Abandonment Spirituality of Patient [] Person of Imani [] Attends Religious of their Imani [] Believes in Prayer [] Reads Bible or Episcopalian materials [] There are Spiritual issues to be addressed Tour Coordinator Interventions [x] Prayer [] Active listening [] Non-anxious presence [] Spiritual/emotional support [] Crisis/trauma care [] Spiritual counseling [] Bereavement support [] Provided bereavement packet [] Provided Bible/devotional materials [] Provided toy/stuffed animal, coloring book to patient or family member [x] Completed spiritual assessment [] Provided Communion [] Anointing/[place] [] Salvation [] Other: Impact on Illness or Injury [] Angry [] Fearful [] Anxious [] Often cries [] Exhaustion [] Unable to work [] Unable to attend zoroastrianism [] Unable to walk/stand [] Unable to read [] Unable to drive [] Unable to eat/drink [] Unable to sleep [] Unable to be with family [] Other: Summary Accepted Prayer Time spent with patient 5 min
[2019-05-30] MEDS: pantoprazole 40 mg SDV IVP (09:50)
[2019-05-30] MEDS: thiamine 100 mg Tablet PO (09:50)
[2019-05-30] MEDS: multivitamin therapeutic Tablet 1 TAB PO (09:50)
[2019-05-30] MEDS: folic acid 1 mg Tablet PO (09:51)
--- NOTE | 2019-05-30 12:13 | P.PN_ITS ---
Subjective Subjective: Interval history: This morning patient states that her breathing is better, has a cough, low-grade fevers overnight, no anxiety Patient self extubated herself last night, since then, she has been transitioned down to 2 L nasal cannula, having intermittent tachypnea episodes, and coughing episodes, some sore throat Patient states that the night of her overdose, she had a couple of drinks, and she took her alprazolam as prescribed, denies taking more than prescribed, den ies taking follow-up trazodone more than prescribed, denies taking her Celexa more than prescribed. Patient denies homicidal or suicidal ideation. Patient denies that this was a suicide attempt. Does report that she is depressed, states that she was from [facility], and now she moved to [place] to be with her , she does not like it here. Vitals/I&O/Wt Last Vital Signs Temp 98.4 F 05/30/19 08:00 Pulse 92 05/30/19 10:00 Resp 20 H 05/30/19 10:00 BP 93/60 05/30/19 10:00 Pulse Ox 95 05/30/19 08:00 05/29/19 05/30/19 05/30/19 22:59 06:59 14:59 Intake Total 300 / 6682.195 8106 / 2687.000 370 / 370 Output Total 500 / 500 500 / 1000 0 / 0 Balance -200 / 1137.000 550 / 1687.000 370 / 370 Weight last 48 hrs Weight 95.254 kg Physical Exam Const: COMMON NORMALS: no apparent distress and oriented x3 HENMT: COMMON NORMALS: normocephalic HEAD & SCALP: normocephalic Neck/C-Spine: COMMON NORMALS: no JVD Chest: COMMONS NORMALS: inspection of chest normal Resp: COMMON NORMALS: normal respiratory effort AUSCULTATION: wheezes inspiratory wheezes, left upper and right upper Cardio: COMMON NORMALS: no JVD, regular rate, regular rhythm, S1 normal heart sound and S2 normal heart sound RATE: regular rate RHYTHM: regular rhythm HEART SOUNDS: S1 normal and S2 normal GI: COMMON NORMALS: normal to inspection, nondistended, normoactive bowel sounds, soft to palpation, no hepatosplenomegaly, no masses and no bruits PALPATION: Yes soft and Yes no hepatosplenomegaly Extremity: COMMON NORMALS: normal capillary refill, no clubbing, cyanosis or edema, no calf tenderness and no pedal edema Neuro: COMMON NORMALS: oriented x3, CN's II-XII intact bilaterally, moves all extremities and no focal motor deficits Psych: COMMON NORMALS: mental status grossly normal, thought process normal, cooperative, denies hallucinations, denies homicidal ideation and denies suicidal ideation THOUGHT PROCESS: normal thought process Urinary Catheter Management^: More: Cath Placed During This Visit: no Data : 05/30/19 06:20 05/30/19 06:20 Micro: Microbiology 05/28/19 18:10 Gram Stain - Final Sputum - Endotracheal Tube Aspirate Sputum Culture - Preliminary 05/29/19 08:28 Blood Culture - Preliminary Blood NEGATIVE TO DATE 05/29/19 08:33 Blood Culture - Preliminary Blood NEGATIVE TO DATE A&P Assessment and plan (1) Respiratory failure requiring intubation: -Acute hypoxic respiratory failure with sepsis secondary to aspiration pneumonia and alcohol and benzodiazepine overdose -Self extubated herself on 05/29 2019 in the evening, currently on room nasal cannula 2 L, continues to have coarse wheezing in bilateral upper lung ventura, sore throat, intermittent episodes of tachypnea -Patient is a high risk of airway edema due to trauma related to self extubation, high risk for respiratory distress and reintubation Plan -Oxygen protocol -Protonix, Tylenol for fevers, Lovenox for DVT prophylaxis -Broad-spectrum antibiotics vancomycin and Zosyn -Librium for withdrawal, CIWA with for withdrawal -More catheter in place -Urine cultures, blood cultures Status: Acute Code(s): J96.90 - Respiratory failure, unspecified, unspecified whether with hypoxia or hypercapnia (2) Alcohol abuse: -Poison control has been contacted, advised to continue interventions as above Status: Acute Code(s): F10.10 - Alcohol abuse, uncomplicated (3) Smoker: Status: Acute Code(s): F17.200 - Nicotine dependence, unspecified, uncomplicated (4) Hypokalemia: Improved to 4.0 Status: Acute Code(s): E87.6 - Hypokalemia (5) Aspiration pneumonitis: Status: Acute Code(s): J69.0 - Pneumonitis due to inhalation of food and vomit (6) Sepsis: Status: Acute Qualifiers: Sepsis type: sepsis due to unspecified organism Sepsis acute organ dysfunction status: without acute organ dysfunction Qualified Code(s): A41.9 - Sepsis, unspecified organism Code(s): A41.9 - Sepsis, unspecified organism (7) Alcohol overdose: Status: Acute Code(s): T51.91XA - Toxic effect of unspecified alcohol, accidental (unintentional), initial encounter (8) Benzodiazepine overdose: Will reinstitute alprazolam 1 mg 3 times daily as needed, in the next few days continue Celexa, trazodone Status: Acute Code(s): T42.4X1A - Poisoning by benzodiazepines, accidental (unintentional), initial encounter Attestations Medical Necessity Statement*: Patient requires continued hospitalization, for acute respiratory failure Coding Level of Care Code Acute Supervisor Grading for [facility] Diagnoses Respiratory failure requiring intubation J96.90 Alcohol abuse F10.10 Smoker F17.200 Hypokalemia E87.6 Aspiration pneumonitis J69.0 Sepsis A41.9 Sepsis type: sepsis due to unspecified organism Sepsis acute organ dysfunction status: without acute organ dysfunction Alcohol overdose T51.91XA Benzodiazepine overdose T42.4X1A
[2019-05-30] MEDS: citalopram 20 mg Tablet PO (12:15)
[2019-05-30 12:36] LABS: Lactic Acid 0.9 mmol/L (0.5-2.2)
[2019-05-30] MEDS: benzonatate 100 mg Capsule PO (15:54)
[2019-05-30 19:04] LABS: Lactic Acid 0.8 mmol/L (0.5-2.2)
[2019-05-30] MEDS: trazodone 100 mg Tablet PO (20:32)
[2019-05-30] MEDS: enoxaparin 40 mg/0.4 mL Syringe SUBCUT (22:44)
[2019-05-31] VITALS (16 sets, daily range): BP systolic 100–130; BP diastolic 53–84; PULSE 85–105; RESP 20–24; TEMP 36.9–37.3; O2SAT 94–97
[2019-05-31 00:42] LABS: Lactic Acid 0.7 mmol/L (0.5-2.2)
[2019-05-31] MEDS: chlordiazePOXIDE 10 mg Capsule PO ×4 (02:33→21:30)
[2019-05-31] MEDS: piperacillin-tazobactam 3.375 GM in sodium chloride 0.9% (plus) 50 ML IV ×3 (04:09→19:38)
[2019-05-31] MEDS: sodium chloride 0.9% 1,000 ML 75 ML IV ×2 (04:09→19:38)
[2019-05-31 04:45] LABS: Basophils % 0.3 %; Eosinophils # 0.1 10^3/uL (0.0-0.8); Eosinophils % 0.6 %; Hematocrit 33.8 % (37.0-47.0); Hemoglobin 10.5 g/dL (11.5-15.3); Lymphocytes % 10.8 %; Mean Corpuscular HGB Conc 31.1 g/dL (30.0-36.0); Mean Corpuscular Hemoglobin 30.8 pg (28.0-34.0); Mean Corpuscular Volume 99.1 fL (81-99); Mean Platelet Volume 9.2 fL (7.4-10.4); Monocytes # 0.7 10^3/uL (0.2-0.9); Neutrophils # 7.8 10^3/uL (1.8-7.7); Neutrophils % 80.2 %; Nucleated Red Blood Cells % 0 %; Platelet Count 142 10^3/cmm (130-400); Red Blood Count 3.41 10^6/uL (4.1-5.3); Red Cell Distribution Width 13.4 % (12.1-15.1); White Blood Count 9.7 10^3/uL (4.0-10.0)
[2019-05-31 05:05] LABS: Alanine Aminotransferase 18 U/L (0-33); Albumin Level 3.3 g/dL (3.5-5.2); Alkaline Phosphatase 70 IU/L (35-105); Anion Gap 19.1 (5-19); Aspartate Amino Transferase 24 U/L (0-32); Blood Urea Nitrogen 18 mg/dL (6-20); C Reactive Protein 156.2 mg/L (0.0-4.9); Calcium 8.1 mg/dL (8.5-10.5); Carbon Dioxide 17 mmol/L (22-29); Chloride 109 mmol/L (98-107); Globulin 2.7 g/dL (1.3-4.6); Glomerular Filtration Rate 20.7 mL/min (90-130); Glucose 87 mg/dL (74-109); Phosphorus 3.9 mg/dL (2.5-4.5); Potassium 4.1 mmol/L (3.5-5.1); Sodium 141 mmol/L (136-145); Total Bilirubin 0.3 mg/dL (0.15-1.2)
[2019-05-31 05:17] LABS: Procalcitonin 88.11 ng/mL (0-0.8)
--- NOTE | 2019-05-31 07:20 | US_ITS ---
WS: [id number] RENAL ULTRASOUND HISTORY: LORENZA, r/o stones COMPARISON: 05/29/2019 TECHNIQUE: 2-D and color Doppler imaging of the kidney submitted. Right kidney: 10.1 cm x 5.1 cm x 4.8 cm. Normal echogenicity with no hydronephrosis or mass. Left kidney: 12.2 cm x 5.1 cm x 5.5 cm. Normal echogenicity with no hydronephrosis or mass. Aorta: Normal. Urinary Bladder: Normal distention. US/US renal BI* [id number] IMPRESSION: Normal renal ultrasound.
[2019-05-31] MEDS: citalopram 20 mg Tablet PO (09:30)
[2019-05-31] MEDS: thiamine 100 mg Tablet PO (09:30)
[2019-05-31] MEDS: folic acid 1 mg Tablet PO (09:30)
[2019-05-31] MEDS: multivitamin therapeutic Tablet 1 TAB PO (09:30)
--- NOTE | 2019-05-31 09:45 | PC.NURSE ---
More catheter removed at this time. 10ml removed from balloon. Patient tolerated well.
[2019-05-31 10:45] LABS: Urine Creatinine 89 mg/dL (28-217); Urine Random Sodium 52 mmol/L
[2019-05-31 11:06] LABS: Eosinophil Urine No Eosinophils Seen; Urine Eosinophil Count 0 (0-0)
--- NOTE | 2019-05-31 12:00 | PC.NURSE ---
Patient placed in chair at this time.
--- NOTE | 2019-05-31 12:22 | PC.NURSE ---
Patient requested to go back to bed at this time. This nurse explained the importance of sitting up in the chair and preventing further worsening of pneumonia at this time. This nurse encouraged patient to stay up and reviewed physician activity orders.
--- NOTE | 2019-05-31 12:50 | P.CONIM_ITS ---
Providers/Reason for Consult Consulting Physican/Specialty*: Edenilson Goode MD ; psychiatry Reason for Consult*: Imminewnt risk to self or others Attending Physician: Samuel Sheehan MD Psych Consult HPI History of Present Illness Chief complaint: I hate it here. sandra victoria is a 59 year old female Who committed a potentially lethal self- injurious act. It is unclear whether she was attempting suicide. Psychiatry has been consult to help clarify the situation and make recommendations. Details of the patient's admission are:sandra victoria is a 59 year old female who carries diagnosis of major depressive disorder, alcohol abuse, anxiety, osteoarthritis, cervical radiculopathy was brought in by EMS when she was found unresponsive on her driveway. and daughter is at the bedside. Daughter is stating that she got a phone call from 1 of the neighbors regarding her mother's concerning condition while she was in her car in her driveway. When her daughter checked up on her she was awake and coherent, but she seemed a little bit lethargic and drowsy she attributed her symptoms secondary to alcohol intake, she went back in her car to wait for her father to come home. Within 5 to 10 minutes her breathing got worse and she became unresponsive, her started CPR on her for about 8 to 10 minutes until EMS arrived. She had palpable pulse with soft blood pressures and hypothermia, she was brought to [facility]. She was intubated by ER physician for her inability to protect her airways. An attempt was made to interview the patient at noon on 05/31/2019. She was somnolent at that time. She was arousable on physical stimuli but not verbal. She was oriented to self and situation. She was not suitable for interview at that time. Returned to interview patient at 14:00. Pt still somnolent. The patient was interviewed at 1630 in ICU room #1 along with her daughter. The patient denies that the events that led to her hospitalization in intensive care unit for a suicide attempt. However, the patient will admit to a pattern of binge drinking. His long- standing pattern. She denies that she is an alcoholic but admits that she has an alcohol problem. She has had multiple DUIs prior to moving to [place]. She has been through an outpatient rehabilitation program. She says that it takes several years for her to get drunk. She drinks 7 beers a day a couple of times a week. Days that she does not drink to inebriation, she does not drink at all. She is abstinent. She denies symptoms of alcohol withdrawal. She denies a History of delirium tremens.She denies other substance use. Of significance, on the night that she drank to obtundation, she changed from drinking beer and added hard liquor on top of that. That seems to be a warning flag that she is getting dangerously close to being self-destructive. The patient also has a history of clinical depression. She takes Celexa at an unknown dosage. Both the patient and her mother report that the medications for depression and anxiety are effective as long as she is not drinking. She denies suicidal or homicidal ideation. She denies presence of auditory or visual hallucinations. However she does report feelings of hopelessness, worthlessness, and he, irritability, and insomnia. These are amplified by psychosocial situations in that she absolutely loathes living in [place]. She moved from [place] little over 2 years ago along with her so that they can be near family. Her and family law that here. She finds is placed for potential and boring. She hates the driving of the country. They moved from [facility] which is an area. 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 She sees no potential that she will ever leave this area. It is one of the things that makes her life feel so hopeless. She is also treated for anxiety with Xanax.She has 1 prior psychiatric hospitalization stemming from an alcohol overdose in [place]. She has never been talking therapy. Another factor that makes her unhappy in [place] is that she cannot find a psychiatrist to help her mental health issues. She is not seeing a therapist. She is unaware of any outpatient substance abuse programs. Meds Current Medications: Current Medications Generic Name Dose Route Start Last Admin Trade Name Freq PRN Reason Stop Dose Admin Acetaminophen 650 mg 05/29/19 09:54 05/30/19 22:47 Tylenol PO 650 mg Q4H PRN Administration MILD PAIN OR INCR EASE TEMP Albuterol/Ipratrop ium 3 ml 05/29/19 08:30 05/30/19 07:39 Duoneb INHALATION 3 ml Q2H PRN Administration SHORTNESS OF PIA TH Benzonatate 100 mg 05/30/19 12:12 05/30/19 15:54 Tessalon Pearls PO 100 mg TID PRN Administration COUGH Chlordiazepoxide 10 mg 05/29/19 08:30 05/31/19 09:29 Librium PO 10 mg Q6H ELMA Administration Chlorhexidine Gluc arnaldo 1 applic 05/29/19 09:00 05/31/19 09:35 Betasept TOPICAL Not Given DAILY ELMA Citalopram Hydrobr omide 20 mg 05/30/19 11:00 05/31/19 09:30 Celexa PO 20 mg DAILY ELMA Administration Enoxaparin Sodium 40 mg 05/28/19 22:32 05/30/19 22:44 Lovenox SUBCUT 40 mg Q24H ELMA Administration Folic Acid 1 mg 05/29/19 09:00 05/31/19 09:30 Folic Acid PO 1 mg DAILY ELMA Administration Piperacillin Sod/T azobactam 50 mls @ 12.5 mls /hr 05/29/19 04:00 05/31/19 04:09 Sod 3.375 gm/ So dium Chloride IV 12.5 mls/hr Q8H ELMA Administration Protocol As Directed Sodium Chloride 1,000 mls @ 100 m ls/hr 05/28/19 22:32 05/31/19 04:09 Sodium Chloride 0.9% IV 75 mls/hr .Q10H ELMA Administration Lorazepam 2 mg 05/28/19 22:32 05/29/19 02:51 Ativan IVP 2 mg PRN PRN Administration WITHDRAWAL Protocol Multivitamins Ther apeutic 1 tab 05/29/19 09:00 05/31/19 09:30 Multivitamin Tab PO 1 tab DAILY ELMA Administration Thiamine Mononitra te 100 mg 05/29/19 09:00 05/31/19 09:30 Vitamin B-1 PO 100 mg DAILY ELMA Administration Trazodone HCl 100 mg 05/30/19 21:00 05/30/19 20:32 Desyrel PO 100 mg BEDTIME ELMA Administration PFSH NPU PFSH: Statuses (acute, chronic, etc) shown below reflect problem list status as previously entered and may not be historically accurate Medical History (Updated 05/31/19 @ 13:40 by Samuel Sheehan MD) Adhesive capsulitis (Acute) Alcohol abuse (Acute) Anxiety (Acute) Cervical radiculopathy (Acute) Major depressive disorder (Acute) Osteoarthritis of shoulder (Acute) Surgical History (Updated 05/28/19 @ 21:33 by Yolis Champagne MD) No pertinent past surgical history (Acute) Family History (Updated 05/28/19 @ 21:30 by Yolis Champagne MD) Other Hyperlipidemia Hypertension Denies family history of Psychiatric illness Suicide Stroke Social History (Updated 05/28/19 @ 21:31 by Yolis Champagne MD) Smoking and tobacco status: heavy tobacco smoker cigarettes Packs smoked per day: 1 Alcohol intake: current Alcohol intake frequency: few times a week Alcohol type: beer Alcohol use comment: She gets depressive episodes when she drinks alcohol she never had alcohol withdrawal symptoms Substance/Drug Use: never Household members: spouse Housing: House Marital status: Mental Status Exam MSE Comments: Mental Status Exam: The patient is encountered sitting upright in chair in ICU room 1. Eye contact is good. Psychomotoric as unremarkable. She is in some physical discomfort and says that she feels like emesis from time to time. She is generally believed to be a reliable informant though clearly she has a tendency to minimize things such as her alcohol use and her mental health history. Appearance: She is dressed in a hospital gown.; no gross neurological deficits., AIMS=0 Speech: Speech is of normal rate and rhythm and easily understood. Thought processes: Thought processes are abstract. Judgment is adequate for safety. Associations: intact Psychotic processes: There is no indication of guarding or paranoia. There is no attention to the internal stimuli. Auditory and visual hallucinations are denied. Judgment: Insight is fair. Problem solving skills are adequate for safety. Orientation: The patient is oriented to person, place time and situation. Memory: no deficits noted in immediate, intermediate, or remote spheres. Attention: The patient is alert and interpersonally engaged. Language: Verbalizations are coherent. Fund of knowledge: Fund of knowledge is adequate. Affect/Mood: Affect is consistent with a depressed mood. She denied both active and passive suicidal ideation Affective range is Constricted Psychosis: perception unimpaired except through cognitive distortion; reality testing intact. Vitals/I&O/Wt Last Vital Signs Temp 98.9 F 05/31/19 10:03 Pulse 97 05/31/19 10:03 Resp 22 H 05/31/19 04:14 BP 100/55 05/31/19 10:03 Pulse Ox 94 05/31/19 10:03 05/30/19 05/31/19 05/31/19 22:59 06:59 14:59 Intake Total 1530 / 2070 981.25 / 3051.25 120 / 120 Output Total 550 / 550 550 / 1100 Balance 980 / 1520 431.25 / 1951.25 120 / 120 Physical Exam Urinary Catheter Management^: More: Cath Placed During This Visit: no Data NPU Micro: Micro: Microbiology 05/28/19 18:10 Gram Stain - Final Sputum - Endotrac heal Tube Aspirate Sputum Culture - F inal 05/29/19 08:28 Blood Culture - Pr eliminary Blood NEGATIVE TO TAMMY E 05/29/19 08:33 Blood Culture - Pr eliminary Blood NEGATIVE TO TAMMY E Microbiology 05/28/19 18:10 Sputum - Endotracheal Tube Aspirate Gram Stain - Final 05/28/19 18:10 Sputum - Endotracheal Tube Aspirate Sputum Culture - Final 05/29/19 08:28 Blood Blood Culture - Preliminary NEGATIVE TO DATE 05/29/19 08:33 Blood Blood Culture - Preliminary NEGATIVE TO DATE A&P Additional A&P Information Diagnoses: Alcohol intoxication Alcohol abuse disorder Major depression?recurrent, moderate severity Provisional?rule out dysthymic disorder Recommendations: The patient is not an imminent danger to self or others. 96 hour involuntary commitment would not be appropriate. She was offered the opportunity to enter the psychiatric unit with hand benefits of reassessment of her medication for depression and the availability of social studies teacher that would help engage her in outpatient individual psychotherapy and a alcohol/substance abuse treatment program. The patient was educated with regard to her prognosis being poor wihtout engagement in individual psychotherapy and working toward a sober lifestyle Attestations NPU Medical Necessity Statement*: length of stay is up to the physician of record. Coding Level of Care Code Acute Department Of Sociology Chair for [facility] Smith
--- NOTE | 2019-05-31 12:50 | PC.NURSE ---
Patient requested to go back to bed at this time. Nurse encouraged patient to stay up to prevent worsening of pneumonia. Patient is coughing up thick creamy tinged sputum at this time.
--- NOTE | 2019-05-31 12:55 | PC.NURSE ---
Patient found to have put herself back to bed at this time. Explained the importance of using the call light, and sitting up in the chair for lung expansion and preventing worsening pneumonia. Patient stated she didn't care what I said
--- NOTE | 2019-05-31 13:38 | PM.PN ---
Subjective Subjective: Interval history: Patient has a mild cough this morning, no chest pain, no shortness of breath, no lightheadedness, no dizziness, no nausea, no vomiting, urinating appropriately Vitals/I&O/Wt Last Vital Signs Temp 98.9 F 05/31/19 10:03 Pulse 97 05/31/19 10:03 Resp 22 H 05/31/19 04:14 BP 100/55 05/31/19 10:03 Pulse Ox 94 05/31/19 10:03 05/30/19 05/31/19 05/31/19 22:59 06:59 14:59 Intake Total 1530 / 2070 981.25 / 3051.25 170 / 170 Output Total 550 / 550 550 / 1100 Balance 980 / 1520 431.25 / 1951.25 170 / 170 Physical Exam Const: COMMON NORMALS: no apparent distress and oriented x3 HENMT: COMMON NORMALS: normocephalic HEAD & SCALP: normocephalic Neck/C-Spine: COMMON NORMALS: no JVD Chest: COMMONS NORMALS: inspection of chest normal Resp: COMMON NORMALS: normal respiratory effort AUSCULTATION: wheezes inspiratory wheezes, left upper and right upper Cardio: COMMON NORMALS: no JVD, regular rate, regular rhythm, S1 normal heart sound and S2 normal heart sound RATE: regular rate RHYTHM: regular rhythm HEART SOUNDS: S1 normal and S2 normal GI: COMMON NORMALS: normal to inspection, nondistended, normoactive bowel sounds, soft to palpation, no hepatosplenomegaly, no masses and no bruits PALPATION: Yes soft and Yes no hepatosplenomegaly Extremity: COMMON NORMALS: normal capillary refill, no clubbing, cyanosis or edema, no calf tenderness and no pedal edema Neuro: COMMON NORMALS: oriented x3, CN's II-XII intact bilaterally, moves all extremities and no focal motor deficits Psych: COMMON NORMALS: mental status grossly normal, thought process normal, cooperative, denies hallucinations, denies homicidal ideation and denies suicidal ideation THOUGHT PROCESS: normal thought process Urinary Catheter Management^: More: Cath Placed During This Visit: no Data : 05/31/19 04:16 05/31/19 04:16 Micro: Microbiology 05/28/19 18:10 Gram Stain - Final Sputum - Endotracheal Tube Aspirate Sputum Culture - Final 05/29/19 08:28 Blood Culture - Preliminary Blood NEGATIVE TO DATE 05/29/19 08:33 Blood Culture - Preliminary Blood NEGATIVE TO DATE A&P Assessment and plan (1) Respiratory failure requiring intubation: -Acute hypoxic respiratory failure with sepsis secondary to aspiration pneumonia and alcohol and benzodiazepine overdose -Self extubated herself on 05/29 2019 in the evening, currently on room nasal cannula 1 L, lungs sound clear to auscultation this morning, patient is doing better Plan -Oxygen protocol -Protonix, Tylenol for fevers, Lovenox for DVT prophylaxis -Continue Zosyn for aspiration pneumonia -Librium for withdrawal, CIWA with for withdrawal -More catheter in place -Urine cultures, blood cultures Status: Acute Code(s): J96.90 - Respiratory failure, unspecified, unspecified whether with hypoxia or hypercapnia (2) Alcohol abuse: -Poison control has been contacted, advised to continue interventions as above Status: Acute Code(s): F10.10 - Alcohol abuse, uncomplicated (3) Smoker: Status: Acute Code(s): F17.200 - Nicotine dependence, unspecified, uncomplicated (4) Hypokalemia: Improved to 4.0 Status: Acute Code(s): E87.6 - Hypokalemia (5) Aspiration pneumonitis: Status: Acute Code(s): J69.0 - Pneumonitis due to inhalation of food and vomit (6) Sepsis: Status: Acute Qualifiers: Sepsis type: sepsis due to unspecified organism Sepsis acute organ dysfunction status: without acute organ dysfunction Qualified Code(s): A41.9 - Sepsis, unspecified organism Code(s): A41.9 - Sepsis, unspecified organism (7) Alcohol overdose: Status: Acute Code(s): T51.91XA - Toxic effect of unspecified alcohol, accidental (unintentional), initial encounter (8) Benzodiazepine overdose: Will reinstitute alprazolam 1 mg 3 times daily as needed, in the next few days continue Celexa, trazodone Status: Acute Code(s): T42.4X1A - Poisoning by benzodiazepines, accidental (unintentional), initial encounter (9) LORENZA (acute kidney injury): -Acute kidney injury, creatinine 2.4, has good urine output -Likely secondary to vancomycin toxicity, Vanco trough 53 -Stop vancomycin -Continue IV fluids -Renal ultrasound -Urine studies Status: Acute Code(s): N17.9 - Acute kidney failure, unspecified Attestations Medical Necessity Statement*: Patient requires continued hospitalization due to alcohol overdose with Xanax, acute respiratory failure secondary aspiration pneumonia, acute kidney injury secondary to vancomycin Coding Level of Care Code Acute Public Employment Mediator for [employer] Diagnoses Respiratory failure requiring intubation J96.90 Alcohol abuse F10.10 Smoker F17.200 Hypokalemia E87.6 Aspiration pneumonitis J69.0 Sepsis A41.9 Sepsis type: sepsis due to unspecified organism Sepsis acute organ dysfunction status: without acute organ dysfunction Alcohol overdose T51.91XA Benzodiazepine overdose T42.4X1A LORENZA (acute kidney injury) N17.9
--- NOTE | 2019-05-31 15:45 | PC.NURSE ---
Patient assisted into chair at this time.
--- NOTE | 2019-05-31 17:07 | PC.NURSE ---
Patient found to have gotten back into bed without using call light or using assistance. This nurse educated patient on the importance of using the call light when wanting to change positions to prevent falls. Patient also educated on the importance of sitting up to prevent worsening of pneumonia.
[2019-05-31] MEDS: ondansetron 2 mg/ML SDV 2 mL 4 MG IVP (19:45)
[2019-05-31] MEDS: LORazepam 2 mg/mL INJ 1 mL IVP (19:59)
[2019-05-31] MEDS: trazodone 100 mg Tablet PO (21:30)
[2019-05-31] MEDS: enoxaparin 40 mg/0.4 mL Syringe SUBCUT (21:30)
[2019-06-01] VITALS (21 sets, daily range): BP systolic 104–154; BP diastolic 50–95; PULSE 77–100; RESP 16–20; TEMP 36.6–37.7; O2SAT 90–98
[2019-06-01] MEDS: chlordiazePOXIDE 10 mg Capsule PO ×3 (02:21→14:16)
[2019-06-01] MEDS: piperacillin-tazobactam 3.375 GM in sodium chloride 0.9% (plus) 50 ML IV (04:18)
[2019-06-01 05:54] LABS: Basophils % 0.2 %; Eosinophils # 0.1 10^3/uL (0.0-0.8); Hemoglobin 10.1 g/dL (11.5-15.3); Lymphocytes # 0.7 10^3/uL (0.8-4.8); Lymphocytes % 7.6 %; Mean Corpuscular HGB Conc 30.6 g/dL (30.0-36.0); Mean Corpuscular Hemoglobin 31.6 pg (28.0-34.0); Mean Corpuscular Volume 103.1 fL (81-99); Mean Platelet Volume 9.2 fL (7.4-10.4); Monocytes # 0.8 10^3/uL (0.2-0.9); Monocytes % 8.7 %; Neutrophils # 7.4 10^3/uL (1.8-7.7); Neutrophils % 81.7 %; Nucleated Red Blood Cells % 0 %; Platelet Count 147 10^3/cmm (130-400); Red Cell Distribution Width 13.6 % (12.1-15.1)
[2019-06-01 06:10] LABS: Alanine Aminotransferase 15 U/L (0-33); Albumin Level 3.2 g/dL (3.5-5.2); Alkaline Phosphatase 68 IU/L (35-105); Anion Gap 19.2 (5-19); Aspartate Amino Transferase 16 U/L (0-32); Blood Urea Nitrogen 22 mg/dL (6-20); C Reactive Protein 103.9 mg/L (0.0-4.9); Calcium 8.4 mg/dL (8.5-10.5); Carbon Dioxide 16 mmol/L (22-29); Chloride 110 mmol/L (98-107); Creatinine Clr Calc Pharmacy 24.6293; Globulin 3.1 g/dL (1.3-4.6); Glucose 93 mg/dL (74-109); Magnesium 2.2 mg/dL (1.7-2.3); Phosphorus 3.7 mg/dL (2.5-4.5); Potassium 4.2 mmol/L (3.5-5.1); Sodium 141 mmol/L (136-145); Total Bilirubin 0.3 mg/dL (0.15-1.2); Total Protein 6.3 g/dL (6.6-8.7)
[2019-06-01 06:12] LABS: Vancomycin Random 19.2 ug/mL (20.0-40.0)
[2019-06-01 06:41] LABS: Procalcitonin 40.35 ng/mL (0-0.5)
--- NOTE | 2019-06-01 07:33 | PC.NURSE ---
refused accu check.
[2019-06-01] MEDS: sodium chloride 0.9% 1,000 ML 100 ML IV ×2 (08:32→17:11)
[2019-06-01] MEDS: folic acid 1 mg Tablet PO (08:33)
[2019-06-01] MEDS: amoxicillin-clav 875-125 mg Tablet 1 TAB PO ×2 (08:33→17:11)
[2019-06-01] MEDS: pantoprazole DR 40 mg Tablet PO (08:33)
[2019-06-01] MEDS: multivitamin therapeutic Tablet 1 TAB PO (08:34)
[2019-06-01] MEDS: thiamine 100 mg Tablet PO (08:43)
[2019-06-01] MEDS: citalopram 20 mg Tablet PO (08:43)
--- NOTE | 2019-06-01 13:53 | PM.PN ---
Subjective Subjective: Interval history: This morning patient has no complaints, denies chest pain, shortness of breath, lightheadedness, dizziness, urinating appropriately, still on 1 L nasal cannula Vitals/I&O/Wt Last Vital Signs Temp 98.4 F 06/01/19 07:00 Pulse 97 06/01/19 09:00 Resp 16 06/01/19 07:43 BP 110/53 06/01/19 09:00 Pulse Ox 90 06/01/19 09:00 05/31/19 06/01/19 06/01/19 22:59 06:59 14:59 Intake Total 1410 / 1580 725.0 / 2305.0 805 / 805 Output Total 200 / 200 Balance 1210 / 1380 725.0 / 2105.0 805 / 805 Physical Exam Const: COMMON NORMALS: no apparent distress and oriented x3 HENMT: COMMON NORMALS: normocephalic HEAD & SCALP: normocephalic Neck/C-Spine: COMMON NORMALS: no JVD Chest: COMMONS NORMALS: inspection of chest normal Resp: COMMON NORMALS: normal respiratory effort, no retractions, no use of accessory muscles and clear to auscultation bilaterally AUSCULTATION: clear to auscultation bilaterally Cardio: COMMON NORMALS: no JVD, regular rate, regular rhythm, S1 normal heart sound and S2 normal heart sound RATE: regular rate RHYTHM: regular rhythm HEART SOUNDS: S1 normal and S2 normal GI: COMMON NORMALS: normal to inspection, nondistended, normoactive bowel sounds, soft to palpation, no hepatosplenomegaly, no masses and no bruits PALPATION: Yes soft and Yes no hepatosplenomegaly Extremity: COMMON NORMALS: normal capillary refill, no clubbing, cyanosis or edema, no calf tenderness and no pedal edema Neuro: COMMON NORMALS: oriented x3, CN's II-XII intact bilaterally, moves all extremities and no focal motor deficits Psych: COMMON NORMALS: mental status grossly normal, thought process normal, cooperative, denies hallucinations, denies homicidal ideation and denies suicidal ideation THOUGHT PROCESS: normal thought process Urinary Catheter Management^: More: Cath Placed During This Visit: no Data : 06/01/19 05:35 06/01/19 05:35 Micro: Microbiology 05/28/19 18:10 Gram Stain - Final Sputum - Endotracheal Tube Aspirate Sputum Culture - Final A&P Assessment and plan (1) Respiratory failure requiring intubation: -Acute hypoxic respiratory failure with sepsis secondary to aspiration pneumonia and alcohol and benzodiazepine overdose -Self extubated herself on 05/29 2019 in the evening, currently on room nasal cannula 1 L, lungs sound clear to auscultation this morning, patient is doing better Plan -Oxygen protocol -Protonix, Tylenol for fevers, Lovenox for DVT prophylaxis -De-escalate to Augmentin -De-escalate Librium to home Xanax 1 mg p.o. 3 times daily -Urine cultures, blood cultures unremarkable Status: Acute Code(s): J96.90 - Respiratory failure, unspecified, unspecified whether with hypoxia or hypercapnia (2) Alcohol abuse: -Poison control has been contacted, advised to continue interventions as above Status: Acute Code(s): F10.10 - Alcohol abuse, uncomplicated (3) Smoker: Status: Acute Code(s): F17.200 - Nicotine dependence, unspecified, uncomplicated (4) Hypokalemia: Improved to 4.0 Status: Acute Code(s): E87.6 - Hypokalemia (5) Aspiration pneumonitis: Status: Acute Code(s): J69.0 - Pneumonitis due to inhalation of food and vomit (6) Sepsis: Status: Acute Qualifiers: Sepsis type: sepsis due to unspecified organism Sepsis acute organ dysfunction status: without acute organ dysfunction Qualified Code(s): A41.9 - Sepsis, unspecified organism Code(s): A41.9 - Sepsis, unspecified organism (7) Alcohol overdose: Patient is agreeable to this psychiatric evaluation at [facility] after she is medically stable Status: Acute Code(s): T51.91XA - Toxic effect of unspecified alcohol, accidental (unintentional), initial encounter (8) Benzodiazepine overdose: Will reinstitute alprazolam 1 mg 3 times daily as needed continue Celexa, trazodone Status: Acute Code(s): T42.4X1A - Poisoning by benzodiazepines, accidental (unintentional), initial encounter (9) LORENZA (acute kidney injury): -Acute kidney injury, creatinine 2.7, has good urine output -Likely secondary to vancomycin toxicity, Vanco trough 53, now down to 19.3 -Vancomycin has been stopped -Continue IV fluids -Renal ultrasound unremarkable -Urine studies showed no eosinophils, fena 1.0 Status: Acute Code(s): N17.9 - Acute kidney failure, unspecified Attestations Medical Necessity Statement*: Rest continue hospitalization, for acute respiratory failure secondary to alcohol and benzodiazepine overdose, aspiration pneumonia, now vancomycin-induced nephropathy Coding Level of Care Code Acute Geophysical Prospecting Surveyor for [facility] Fwd Diagnoses Respiratory failure requiring intubation J96.90 Alcohol abuse F10.10 Smoker F17.200 Hypokalemia E87.6 Aspiration pneumonitis J69.0 Sepsis A41.9 Sepsis type: sepsis due to unspecified organism Sepsis acute organ dysfunction status: without acute organ dysfunction Alcohol overdose T51.91XA Benzodiazepine overdose T42.4X1A LORENZA (acute kidney injury) N17.9
--- NOTE | 2019-06-01 15:48 | PC.NURSE ---
transferred to 277 bed 2 per w/c. with belongings including cell phone
[2019-06-01 16:08] LABS: Glucose Point of Care 103 mg/dL (70-110)
[2019-06-01] MEDS: trazodone 100 mg Tablet PO (21:35)
[2019-06-01] MEDS: enoxaparin 40 mg/0.4 mL Syringe SUBCUT (21:35)
[2019-06-01 21:53] LABS: Glucose Point of Care 107 mg/dL (70-110)
[2019-06-02] VITALS (7 sets, daily range): BP systolic 128–146; BP diastolic 74–85; PULSE 72–97; RESP 17–22; TEMP 36.5–37; O2SAT 94–99
[2019-06-02] MEDS: sodium chloride 0.9% 1,000 ML 100 ML IV (02:19)
[2019-06-02 06:36] LABS: Glucose Point of Care 108 mg/dL (70-110)
[2019-06-02 06:36] LABS: Glucose Point of Care 143 mg/dL (70-110)
[2019-06-02] MEDS: multivitamin therapeutic Tablet 1 TAB PO (08:34)
[2019-06-02] MEDS: pantoprazole DR 40 mg Tablet PO (08:34)
[2019-06-02] MEDS: amoxicillin-clav 875-125 mg Tablet 1 TAB PO ×2 (08:34→17:05)
[2019-06-02] MEDS: thiamine 100 mg Tablet PO (08:35)
[2019-06-02] MEDS: folic acid 1 mg Tablet PO (08:35)
[2019-06-02] MEDS: citalopram 20 mg Tablet PO (08:35)
--- NOTE | 2019-06-02 10:18 | P.PN_ITS ---
Subjective Subjective: Interval history: Patient is doing well this morning, denies chest pain, palpitations, shortness of breath, lightheadedness, dizziness, states that she would like to go home, urinating appropriately on, they are unable to obtain blood work this morning, still on 2 L nasal cannula Vitals/I&O/Wt Last Vital Signs Temp 98.6 F 06/02/19 07:58 Pulse 72 06/02/19 08:56 Resp 17 06/02/19 08:56 BP 128/77 06/02/19 07:58 Pulse Ox 97 06/02/19 08:56 06/01/19 06/02/19 06/02/19 22:59 06:59 14:59 Intake Total 1225 / 2390 1080 / 3470 120 / 120 Output Total 0 / 1 Balance 1225 / 2389 1080 / 3469 120 / 120 Physical Exam Const: COMMON NORMALS: no apparent distress and oriented x3 HENMT: COMMON NORMALS: normocephalic HEAD & SCALP: normocephalic Neck/C-Spine: COMMON NORMALS: no JVD Chest: COMMONS NORMALS: inspection of chest normal Resp: COMMON NORMALS: normal respiratory effort, no retractions and no use of accessory muscles AUSCULTATION: wheezes inspiratory wheezes, left upper and right upper Cardio: COMMON NORMALS: no JVD, regular rate, regular rhythm, S1 normal heart sound and S2 normal heart sound RATE: regular rate RHYTHM: regular rhythm HEART SOUNDS: S1 normal and S2 normal GI: COMMON NORMALS: normal to inspection, nondistended, normoactive bowel sounds, soft to palpation, no hepatosplenomegaly, no masses and no bruits PALPATION: Yes soft and Yes no hepatosplenomegaly Extremity: COMMON NORMALS: normal capillary refill, no clubbing, cyanosis or edema, no calf tenderness and no pedal edema Neuro: COMMON NORMALS: oriented x3, CN's II-XII intact bilaterally, moves all extremities and no focal motor deficits Psych: COMMON NORMALS: mental status grossly normal, thought process normal, cooperative, denies hallucinations, denies homicidal ideation and denies suicidal ideation THOUGHT PROCESS: normal thought process Urinary Catheter Management^: More: Cath Placed During This Visit: no Data : 06/01/19 05:35 06/01/19 05:35 A&P Assessment and plan (1) Respiratory failure requiring intubation: -Acute hypoxic respiratory failure with sepsis secondary to aspiration pneumonia and alcohol and benzodiazepine overdose -Self extubated herself on 05/29 2019 in the evening, currently on room nasal cannula 1 L, l has some wheezing in bilateral upper lung ventura, but overall doing better, try to de-escalate oxygen today, repeat chest x-ray Plan -Oxygen protocol -Protonix, Tylenol for fevers, Lovenox for DVT prophylaxis -De-escalate to Augmentin -De-escalate Librium to home Xanax 1 mg p.o. 3 times daily -Urine cultures, blood cultures unremarkable Status: Acute Code(s): J96.90 - Respiratory failure, unspecified, unspecified whether with hypoxia or hypercapnia (2) Alcohol abuse: -Poison control has been contacted, advised to continue interventions as above Status: Acute Code(s): F10.10 - Alcohol abuse, uncomplicated (3) Smoker: Status: Acute Code(s): F17.200 - Nicotine dependence, unspecified, uncomplicated (4) Hypokalemia: Improved to 4.0 Status: Acute Code(s): E87.6 - Hypokalemia (5) Aspiration pneumonitis: Status: Acute Code(s): J69.0 - Pneumonitis due to inhalation of food and vomit (6) Sepsis: Status: Acute Qualifiers: Sepsis type: sepsis due to unspecified organism Sepsis acute organ dysfunction status: without acute organ dysfunction Qualified Code(s): A41.9 - Sepsis, unspecified organism Code(s): A41.9 - Sepsis, unspecified organism (7) Alcohol overdose: Patient wants to hold off on psychiatric evaluation at [facility] Status: Acute Code(s): T51.91XA - Toxic effect of unspecified alcohol, accidental (unintentional), initial encounter (8) Benzodiazepine overdose: Will reinstitute alprazolam 1 mg 3 times daily as needed continue Celexa, trazodone Status: Acute Code(s): T42.4X1A - Poisoning by benzodiazepines, accidental (unintentional), initial encounter (9) LORENZA (acute kidney injury): -Acute kidney injury, creatinine 2.7, has good urine output, blood work this morning is pending -Likely secondary to vancomycin toxicity, Vanco trough 53, now down to 19.3 -Vancomycin has been stopped -Continue IV fluids -Renal ultrasound unremarkable -Urine studies showed no eosinophils, fena 1.0 Status: Acute Code(s): N17.9 - Acute kidney failure, unspecified Additional A&P Information Acute hypercapnic respiratory failure Patient is intubated and sedated for her inability to protect her airways Patient is currently doing well on CMV ventilator settings PEEP 8, FiO2 45%, blood gas has been reviewed which is showing hyperoxygenation, I have reduced PEEP to 5 with FiO2 less than 40% Currently requiring vasopressors for blood pressure support, she got 2 L of normal saline in ER, I will keep her on normal saline at 75 mL/h, titrate off propofol and use fentanyl for sedation Aspiration pneumonia Secondary to inability to protect airways We will cover her with Zosyn for now She meets sepsis criteria with leukocytosis, low-grade temperature, and evidence of infiltrates on chest imaging Acute on chronic alcohol abuse Family stating that she drinks on and off and when she drinks she gets very depressive and sometimes suicidal After extubation needs psych consult Not sure at the moment whether she had any suicidal ideation or planning 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 no recent social stressors She takes alprazolam 1 mg 3 times a day on as-needed basis, she does not take marijuana I have asked lab to take another look at her U tox CIWA protocol Thiamine and folic acid Blood alcohol level 237 without history of intubation or withdrawal seizures in the past Mild increase in troponin I believe this is secondary to her alcohol induced stress on her myocardium, will repeat EKG and wait for 6-hour delta troponin Metabolic acidosis with respiratory decompensation secondary to alcohol abuse with concomitant use of Xanax I will check lactic acid Hypokalemia: Repleted, will check mag level Full code DVT prophylaxis: Lovenox Will need psych evaluation after extubation Attestations Medical Necessity Statement*: Patient requires continued hospitalization due to acute respiratory failure, vancomycin dose nephropathy Coding Level of Care Code Acute Program Director/Morning Show Host for [facility] Fwd Diagnoses Respiratory failure requiring intubation J96.90 Alcohol abuse F10.10 Smoker F17.200 Hypokalemia E87.6 Aspiration pneumonitis J69.0 Sepsis A41.9 Sepsis type: sepsis due to unspecified organism Sepsis acute organ dysfunction status: without acute organ dysfunction Alcohol overdose T51.91XA Benzodiazepine overdose T42.4X1A LORENZA (acute kidney injury) N17.9
--- NOTE | 2019-06-02 10:22 | XRR_ITS ---
PROCEDURE INFORMATION: Exam: XR Chest, 1 View Exam date and time: 06/02/2019 10:43 AM Age: 59 years old Clinical indication: Shortness of breath; Patient HX: SOB x2-3 days, PT is a current smoker, PT denies HX of surgery on chest, PT denies HX of CA. TECHNIQUE: Imaging protocol: XR of the chest Views: 1 view. COMPARISON: CR XR chest 1V portable [id number] 05/30/2019 7:07 AM FINDINGS: Lung volumes are low, limiting assessment. Mild ill-defined opacification at right lung base is most compatible with atelectasis/infiltrate, new from prior study. Ill-defined mild interstitial opacification in each lung may represent infiltrates, edema, or a combination thereof, appears new from prior study. No significant obscuration of the lateral costophrenic angles is demonstrated. There is scattered pulmonary scarring bilaterally. Visualized cardiac silhouette size appears upper normal. XR/XR chest 1V portable [id number] IMPRESSION: Mild ill-defined opacification at right lung base is most compatible with atelectasis/infiltrate, new from prior study. Ill-defined mild interstitial opacification in each lung may represent infiltrates, edema, or a combination thereof, appears new from prior study.
--- NOTE | 2019-06-02 11:28 | PC.CHAP ---
Pastoral Care Encounter/Spiritual Assessment Type of Contact x[] Declined kindergarten instructional assistant visit [] Patient/Family/Request visit [] Outpatient visit [] Follow-up visit [] Physician referral [] Code/Alert [] Routine visit [] Staff referral [] Actively dying [] Patient sleeping [] Family support [] [] Out of room [] Palliative care [] [] Receiving care in room [] Pre-surgical visit [] Trauma [] Long length of stay [] ICU visit [] Other: Relational/Emotional Strength [] Patient feels connected with others/family/visitors/staff [] Distress [] Loneliness/isolation [] Abandonment Spirituality of Patient [] Person of Imani [] Attends Voodoo of their Imani [] Believes in Prayer [] Reads Bible or Taoism materials [] There are Spiritual issues to be addressed Color Blender Interventions [] Prayer [] Active listening [] Non-anxious presence [] Spiritual/emotional support [] Crisis/trauma care [] Spiritual counseling [] Bereavement support [] Provided bereavement packet [] Provided Bible/devotional materials [] Provided toy/stuffed animal, coloring book to patient or family member [] Completed spiritual assessment [] Provided Communion [] Anointing/[place] [] Salvation [] Other: Impact on Illness or Injury [] Angry [] Fearful [] Anxious [] Often cries [] Exhaustion [] Unable to work [] Unable to attend faith [] Unable to walk/stand [] Unable to read [] Unable to drive [] Unable to eat/drink [] Unable to sleep [] Unable to be with family [] Other: Summary Patient declined Color Blender visit. Time spent with patient
[2019-06-02 11:54] LABS: Basophils # 0.1 10^3/uL (0.0-0.1); Basophils % 0.6 %; Eosinophils # 0.2 10^3/uL (0.0-0.8); Eosinophils % 2.7 %; Hematocrit 33.7 % (37.0-47.0); Hemoglobin 10.8 g/dL (11.5-15.3); Lymphocytes % 11.9 %; Mean Corpuscular Hemoglobin 31.7 pg (28.0-34.0); Mean Corpuscular Volume 98.8 fL (81-99); Mean Platelet Volume 8.9 fL (7.4-10.4); Monocytes # 1.1 10^3/uL (0.2-0.9); Monocytes % 13.3 %; Neutrophils % 71.1 %; Nucleated Red Blood Cells % 0 %; Platelet Count 145 10^3/cmm (130-400); Red Blood Count 3.41 10^6/uL (4.1-5.3); Red Cell Distribution Width 13.6 % (12.1-15.1); White Blood Count 8.4 10^3/uL (4.0-10.0)
[2019-06-02 12:33] LABS: Alanine Aminotransferase 15 U/L (0-33); Albumin Level 3.4 g/dL (3.5-5.2); Alkaline Phosphatase 83 IU/L (35-105); Anion Gap 19.4 (5-19); Blood Urea Nitrogen 20 mg/dL (6-20); Calcium 8.5 mg/dL (8.5-10.5); Carbon Dioxide 17 mmol/L (22-29); Chloride 113 mmol/L (98-107); Globulin 2.4 g/dL (1.3-4.6); Glomerular Filtration Rate 21.7 mL/min (90-130); Glucose 111 mg/dL (74-109); Potassium 4.4 mmol/L (3.5-5.1); Sodium 145 mmol/L (136-145); Total Bilirubin 0.3 mg/dL (0.15-1.2); Total Protein 5.8 g/dL (6.6-8.7)
[2019-06-02] MEDS: predniSONE 20 mg Tablet 40 MG PO (12:38)
[2019-06-02 12:39] LABS: Aspartate Amino Transferase 17 U/L (0-32)
[2019-06-02] MEDS: sodium chloride 0.9% 1,000 ML 75 ML IV (12:39)
--- NOTE | 2019-06-02 13:12 | PC.NURSE ---
DRUG AND ALCOHOL TREATMENT SPECIALIST notified this nurse that pt was on the floor. Prior rounding pt was with DRUG AND ALCOHOL TREATMENT SPECIALIST and amb to the restroom and educated on the use of the call light when finished. Pt did not utilize call light and self amb from restroom to her bed. Pt unable to state what happened but reported hitting her head. Able to move all extremities without difficulty or pain. Denies head or neck pain. Two assist with gait belt from laying positiong to sitting then standing. Transferred to bed. Bed alarm activated. Pt educated to call light for needs and concerns. Verbalized understanding. V/S WNL. Dr. Sheehan made aware. New order for PT to eval and tx.
[2019-06-02 18:10] LABS: Estmated Average Glucose 94; Hemoglobin A1C 4.9 % (4.0-6.0)
[2019-06-02 18:32] LABS: Vitamin B12 885 pg/mL (232-1245)
[2019-06-02 21:12] LABS: Glucose Point of Care 165 mg/dL (70-110)
[2019-06-02] MEDS: enoxaparin 40 mg/0.4 mL Syringe SUBCUT (21:49)
[2019-06-02] MEDS: trazodone 100 mg Tablet PO (21:49)
[2019-06-02 23:03] LABS: Folate Level > 20.0 ng/mL (4.8-37.3)
[2019-06-03] VITALS: BP 130/78; BP 150/85; PULSE 82; PULSE 88; RESP 18; RESP 22; TEMP 36.8; TEMP 37; O2SAT 95
[2019-06-03] MEDS: OLANZapine 10 mg VIAL IM (00:23)
[2019-06-03] MEDS: haloperidol inj 5 mg/mL INJ 1 mL 2 MG IVP (02:32)
[2019-06-03 03:29] VITALS: BP 150/85; PULSE 82; RESP 22; TEMP 37
--- NOTE | 2019-06-03 03:59 | PC.NURSE ---
It was time to check patient's morning vital signs and sitter said that the patient just fall asleep. She asked us to skip her morning vital signs. Nurse been notified and said that is okay.
--- NOTE | 2019-06-03 07:24 | PM.MISC ---
Miscellaneous Note Purpose of Documentation: Events note: Overnight patient had episodes of agitation, and confusion, requiring Ativan. This morning at 7:05 AM I was alerted by nurses that patient overnight had episodes of agitation, wanted to go home, was difficult with staff, refused blood work. I went up and saw the patient, there is 2 security officers in the room, patient states that she wants to go home, I advised patient that she is here for acute hypoxic respiratory failure secondary to Ativan and alcohol overdose, for which she was on a ventilator, had aspiration pneumonia, is doing well on oral antibiotics, but she did self extubate herself and has concerns for upper airway edema, she was just on oxygen yesterday, I would prefer to see how her respiratory status test today before there is plan on discharge. In addition I advised patient that she suffered vancomycin-induced nephropathy, her creatinine went as high as 2.7, she had good urine output, and her creatinine is getting better to 2.3, I would like to recheck blood work this morning, see her urine output and hopefully later on this afternoon if she is doing better hopefully get her home. 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 Patient cursed multiple times, stated that she is well aware of holding her here, she wants to go home, and multiple times to try to call her , and she she said she wanted to go home. Patient is alert oriented x3, was answering questions appropriately, she is far outside the alcohol withdrawal window. I advised the risks of leaving the hospital. Risks include significant morbidity and mortality, risk of , risk of significant nephropathy, including dialysis, risk of worsening pneumonia, risk of worsening respiratory failure, risk of falls, risk of trauma. Patient excepted all these risks, voiced understanding, all questions answered. Patient wants to leave AGAINST MEDICAL ADVICE> patient stated that she want to leave AGAINST MEDICAL ADVICE. This morning I was asked to see the patient by the nurses with the at bedside. As above I went over the risks and benefits of leaving AGAINST MEDICAL ADVICE, I went over patient's hospitalization. I fear that patient's current episode episodes of confusion might be related to benzodiazepine withdrawal, some episodes of Wernicke's encephalopathy. However patient is alert oriented x3, she answers questions appropriately, does have episodes of confusion, but overall is understanding the risks and benefits of leaving AGAINST MEDICAL ADVICE. Patient's also understands risks and benefits of leaving his medical advice. I advised patient and that she has a high risk of morbidity and mortality if she leaves the [facility] prematurely, she is a high risk of falls, she has a high risk of episodes of confusion and benzodiazepine withdrawal, high risk of renal failure with her creatinine being 2.3. I advised patient that the best course of action is that when she is medically stable, she should be admitted to the neuropsych of the [facility] for alcohol detox and atypical depression. However patient refuses, understands the risk and benefits, voiced understanding, all questions answered. Patient left AGAINST MEDICAL ADVICE with her at 10:39 AM on 06/03/2019.
--- NOTE | 2019-06-03 09:45 | PC.NURSE ---
WHILE THIS NURSE WAS RECEIVING REPORT FROM JOHN PAUL FLORIAN FROM CENTRIFUGAL OPERATOR WE COULD HEAR YELLING AND SO WE WENT TO INVESTIGATE WHAT AND WHERE THE YELLING WAS COMING FROM, IT WAS THIS PT YELLING SHE WANTED TO LEAVE DUE TO HER HAVING TO GO TO WORK AND HER WILL KILL HER FOR NOT BEING AT WORK. PT WAS VERY AGITATED AND VERY UNSTEADY ON HER FEET TRYING TO PUT HER SLIPPERS ON. PT WAS INFORMED BY JOHN PAUL FLORIAN THAT HER KNEW SHE WAS HERE IN THE HOSPITAL AND THE PT REFUSED THAT SHE WAS NOT IN THE HOSPITAL, SHE STATED SHE DID NOT KNOW WHERE SHE WAS AND THAT SHE WAS NOT IN THE HOSPITAL. JOHN PAUL CALLED DR BURNS AND INFORMED HIM OF WHAT WAS GOING ON, SECURITY SHORTLY ARRIVED AND AN ORDER FOR HALDOL WAS ORDERED FOR THE PT DUE TO HER EXTREME AGITATION AND WANTING TO LEAVE. JOHN PAUL FLORIAN REMOVED MEDICATION FROM THE PYXIS AND HAD THE SYRINGE DRAWN UP AND READY TO GIVE, WHEN WE ENTERED THE ROOM DR BURNS WAS DISCUSSING THE IMPORTANCE OF STAYING AND TALKING WITH HER, SHE WAS VERY AGITATED AND TELLING HIM SHE WAS GETTING VERY UPSET ABOUT WHAT HE WAS SAYING. WHEN ASKED THE DATE SHE GAVE May, AND THE YEAR 2019, SHE ALSO WAS ASKED WHO THE PRESIDENT WAS AND SHE STATED UNFORTUNATELY TRUMP , BUT SHE IS NOT SURE WHAT HOSPITAL SHE IS IN UNLESS SHE WAS TOLD WHERE SHE WAS. PT THREATENED TO RIP IV OUT DUE TO HER WANTING TO LEAVE. DR BURNS, AFTER TALKING WITH HER FOR APPROXIMATELY 20 MINUTES, STATED SHE WAS ABLE TO LEAVE AMA AND JOHN PAUL RN STATED HE TOLD HER NOT TO GIVE HALDOL , MEDICATION WAS WASTED WITH THIS NURSE AND JOHN PAUL FLORIAN WHO HAD REMOVED AND DRAWN UP MEDICATION. PT ASKED WHERE SHE WAS SO SHE COULD CALL FAMILY TO COME GET HER. PT IS NOT SURE WHERE SHE IS AT AND STATES SHE IS NOT IN THE HOSPITAL AFTER BEING TOLD SHE IS IN THE HOSPITAL. IV WAS REMOVED BY THIS NURSE. JOHN PAUL FLORIAN ASKED THE PT FOR HER DAUGHTER AND HUSBANDS PHONE NUMBER SO SHE COULD CALL AND TALK WITH THEM, PT ONLY GAVE HER DAUGHTERS PHONE NUMBER WHO DID NOT ANSWER. CHARGE NURSE ISIAH AND DIRECTOR AQUILES NOTIFIED OF THE SITUATION.
--- NOTE | 2019-06-03 10:41 | PC.NURSE ---
Patient was very confused when she woke up this morning. She rushed to get out of the bed and said she was late for work. I explained to her that she was in the hospital and had been very ill. I told the patient she was unable to leave until she seen the doctor. She got very aggravated with me and pushed passed me to get out the door, said she seen her at the door and she was leaving. The patient was very upset and cussing at everyone. She got her phone and tried to call several people to come and pick her up. The patient was very confused about where she was, what day it is and why she was here. At one point she thought she seen her out the window and bumped the window with her hand like she was trying to get someone's attention. She thought she was being held against her will.
--- NOTE | 2019-06-03 11:18 | PC.OT ---
OT note: Attempted evaluation this morning, RN requested hold. Will attempt when appropriate/able.
--- NOTE | 2019-06-03 20:12 | PM.DCS ---
Discharge Providers Date of Admission: 05/28/19 21:13 Date of Discharge: 06/03/19 Attending Provider at Admission: Yolis Champagne MD Attending Provider at Discharge: Samuel Sheehan MD Diagnoses at Discharge Discharge Diagnosis (1) Respiratory failure requiring intubation: Status: Acute (2) Alcohol abuse: Status: Acute (3) Smoker: Status: Acute (4) Hypokalemia: Status: Acute (5) Aspiration pneumonitis: Status: Acute (6) Sepsis: Status: Acute Qualifiers: Sepsis type: sepsis due to unspecified organism Sepsis acute organ dysfunction status: without acute organ dysfunction Qualified Code(s): A41.9 - Sepsis, unspecified organism (7) Alcohol overdose: Status: Acute (8) Benzodiazepine overdose: Status: Acute (9) LORENZA (acute kidney injury): Status: Acute Reason for Visit Reason for Visit: Reason For Visit: Overdose Hospital Course Hospital Course: On 06/03/2019 patient left AGAINST MEDICAL ADVICE Discharge Summary: This is a 59-year-old female with past medical history of major depressive disorder, anxiety, alcohol abuse, osteoarthritis, cervical radiculopathy, on chronic benzodiazepines, who was brought in by EMS when she was found unresponsive in her driveway. Patient was admitted for acute hypoxic respiratory failures with sepsis secondary to aspiration pneumonia, overdose on alcohol and benzodiazepines. Patient was admitted to the intensive care unit, received broad-spectrum antibiotics, IV fluids, Librium, as needed Ativan for withdrawal and levophed. Poison control was contacted. Patient was doing well on ventilation, she was weaned off levophed, she was doing well off sedation, the plan was for extubation in the next 24 hours. However that evening, patient self extubated herself. Patient was weaned down to nasal cannula, antibiotics were de-escalated to Augmentin, she was started on a short course of steroids to help with upper airway edema secondary to traumatic self extubation, she was transitioned to general medical floors. Patient left AGAINST MEDICAL ADVICE. Patient suffered vancomycin-induced nephropathy had a high vancomycin troughof 53, for which he received IV hydration, vancomycin was stopped, creatinine plateaued at 2.7, started to decrease to 2.3, she had good urine output, patient left AGAINST MEDICAL ADVICE before we could recheck kidney function. For her anxiety and alcohol abuse. Patient did report feeling down, depressed, sad as she is in [place] she is originally from [facility]. Denies homicidal ideation. Denies suicidal ideation. Denies this being a suicide attempt. Declined any interventions for her depression. Decline neuropsych admission for depression, alcohol detox. Patient was seen by psychiatry as inpatient, was diagnosed with alcohol abuse disorder, major depression. Patient was found not to be imminent danger to herself or others, was offered the opportunity for psychiatric unit admission, but declined. Patient left AGAINST MEDICAL ADVICE. Throughout patient's admission, she had intermittent episodes of confusion, agitation, she had a fall on 06/02/2019, was evaluated by physical therapy and found to be quite unsteady on her feet. She was outside the withdrawal window. I highly suspect that patient has chronic peripheral neuropathy related to her chronic alcohol abuse. I also highly suspect that she has some component of Wernicke's encephalopathy related to chronic alcohol abuse. I advised patient to further work-up including MRI of the brain, with her neurologic evaluation, patient declined, left AGAINST MEDICAL ADVICE. In the last 24 hours before leaving AGAINST MEDICAL ADVICE, she would have episodes of agitation, intermittent confusion. Which I thought could possibly be benzodiazepine withdrawal and underlying major depressive disorder and anxiety, and a component of alcohol seeking behavior and Warnicke's encephalopathy. I advised that the best course of action would be a psychiatric admission [facility] For her depression, and alcohol abuse but patient declined.Before leaving AGAINST MEDICAL ADVICE, patient understood all the risk of leaving the hospital, she was able to converse with me, she voiced her understanding, and she left AGAINST MEDICAL ADVICE. Overnight patient had episodes of agitation, and confusion, requiring Ativan. This morning at 7:05 AM I was alerted by nurses that patient overnight had episodes of agitation, wanted to go home, was difficult with staff, refused blood work. I went up and saw the patient, there were 2 security officers in the room, patient states that she wants to go home, I advised patient that she is here for acute hypoxic respiratory failure secondary to Ativan and alcohol overdose, for which she was on a ventilator, had aspiration pneumonia, is doing well on oral antibiotics, but she did self extubate herself and has concerns for upper airway edema, she was just on oxygen yesterday, I would prefer to see how her respiratory status test today before there is plan on discharge. In addition I advised patient that she suffered vancomycin-induced nephropathy, her creatinine went as high as 2.7, she had good urine output, and her creatinine is getting better to 2.3, I would like to recheck blood work this morning, see her urine output and hopefully later on this afternoon if she is doing better hopefully get her home. In addition I advised patient that she is quite unsteady on her feet, I have concerns for alcohol neuropathy and possible Wernicke's encephalopathy, for which I would advise for a alcohol behavioral health program, follow-up with neurology, and further evaluation including an MRI and blood work. Patient cursed multiple times, stated that she is well we are holding her here, she wants to go home, and multiple times tried to call her , and she she said she wanted to go home. Patient is alert oriented x3, was answering questions appropriately, she is far outside the alcohol withdrawal window. I advised the risks of leaving the hospital. Risks include significant morbidity and mortality, risk of , risk of significant nephropathy, including dialysis, risk of worsening pneumonia, risk of worsening respiratory failure, risk of falls, risk of trauma. Patient excepted all these risks, voiced understanding, all questions answered. Patient wants to leave AGAINST MEDICAL ADVICE. This morning I was asked to see the patient by the nurses with the at bedside. As above I went over the risks and benefits of leaving AGAINST MEDICAL ADVICE, I went over patient's hospitalization. I fear that patient's current episode of confusion might be related to benzodiazepine withdrawal, some episodes of Wernicke's encephalopathy some related to underlying depression anxiety, and some related to underlying alcohol seeking behavior. However patient is alert oriented x3, she answers questions appropriately, does have episodes of confusion, but overall is understanding the risks and benefits of leaving AGAINST MEDICAL ADVICE. Patient's also understands risks and benefits of leaving his medical advice. I advised patient and that she has a high risk of morbidity and mortality if she leaves the hospital prematurely, she is a high risk of falls, she has a high risk of episodes of confusion and benzodiazepine withdrawal, high risk of renal failure with her creatinine being 2.3. I advised patient that the best course of action is that when she is medically stable, she should be admitted to [facility] for alcohol detox and atypical depression. However patient refuses, understands the risk and benefits, voiced understanding, all questions answered. Patient left AGAINST MEDICAL ADVICE with her at 10:39 AM on 06/03/2019. Physical Exam Neck/C-Spine: COMMON NORMALS: no JVD Resp: COMMON NORMALS: normal respiratory effort, no retractions and no use of accessory muscles AUSCULTATION: wheezes inspiratory wheezes, left upper and right upper Cardio: COMMON NORMALS: no JVD, regular rate, regular rhythm, S1 normal heart sound and S2 normal heart sound RATE: regular rate RHYTHM: regular rhythm HEART SOUNDS: S1 normal and S2 normal GI: COMMON NORMALS: soft to palpation, no hepatosplenomegaly, no masses and no bruits PALPATION: Yes soft and Yes no hepatosplenomegaly Extremity: COMMON NORMALS: no pedal edema Psych: COMMON NORMALS: mental status grossly normal and thought process normal ATTITUDE: Yes agitated and Yes aggressive MOOD & AFFECT: Yes irritable THOUGHT PROCESS: normal thought process and confused (Does have intermittent episodes of confusion,) ATTENTION/CONCENTRATION: Yes attention grossly intact and Yes concentration grossly intact MEMORY/COGNITION: Yes memory grossly intact Urinary Catheter Management^: More: Cath Placed During This Visit: no Discharge Data Data Completed and Pending: Completed Studies During Hospitalization Category Date Time Status CT cervical spin wo con* [id number] Urge nt Cat Scan 05/28/19 17:[address] head wo con* [id number] Urgent Cat Scan 05/28/19 17:52 Completed XR chest 1V lillian ble [id number] Routine Exams 05/30/19 07:00 Completed XR chest 1V lillian ble [id number] Stat Exams 05/28/19 17:48 Completed XR chest 1V lillian ble [id number] Stat Exams 06/02/19 10:22 Completed US abdomen limite d [id number] Stat Ultrasound 05/29/19 08:30 Completed US renal BI* [id number] Stat Ultrasound 05/31/19 07:20 Completed Pending at discharge Category Date Time Status Drug Monitoring, Panel 6 Stat Lab 05/29/19 10:00 Received Total Protein Beth ctrophoresis Stat Lab 06/02/19 17:35 Received Vitamin B1(Thiami n) Plas/Ser Stat Lab 06/02/19 17:35 Received Labs from last 24 hours 06/02/19 06/02/19 21:08 17:35 POC Glucose 165 Folate > 20.0 Vitals: Last Vital Signs Temp 98.6 F 06/03/19 03:29 Pulse 82 06/03/19 03:29 Resp 22 H 06/03/19 03:29 BP 150/85 06/03/19 03:29 Pulse Ox 95 06/03/19 00:00 Discharge Plan Discharge Patient Disposition: Home, Self-Care Condition: Stable Discharge Date/Time: 06/03/19 11:00 Discharge Attestations Time Spent in Discharge Care*: greater than 30 min Quality Metrics Clinical Quality Measures During this hospital stay, did patient experience: None Coding Level of Care Code 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
[2019-06-05 14:51] LABS: Alcohol Metabolites NEGATIVE ng/mL (<500); Alpha-Hydroxy-Alprazolam 311 ng/mL (<25); Alpha-Hydroxymidazolam NEGATIVE ng/mL (<50); Alpha-Hydroxytriazolam Level NEGATIVE ng/mL (<50); Amphetamines Level NEGATIVE ng/mL (<500); Barbiturates NEGATIVE ng/mL (<300); Benzodiazepines POSITIVE ng/mL (<100); Cocaine Metabolite NEGATIVE ng/mL (<150); Hydroxyethylflurazepam NEGATIVE ng/mL (<50); Lorazepam 304 ng/mL (<50); Marijuana Metabolite 12 ng/mL (<5); Marijuana Metabolite POSITIVE ng/mL (<20); Methadone Metabolite NEGATIVE ng/mL (<100); Noroxycodone 435 ng/mL (<50); Opiates NEGATIVE ng/mL (<100); Oxidant NEGATIVE mcg/mL (<200); Phencyclidine NEGATIVE ng/mL (<25); Temazepam NEGATIVE ng/mL (<50); Urine pH 5.5 (4.5-9.0)
[2019-06-07 13:12] LABS: ALPHA 1 GLOBULIN 0.4 g/dL (0.2-0.3); ALPHA 2 GLOBULIN 0.9 g/dL (0.5-0.9); BETA 1 GLOBULIN 0.4 g/dL (0.4-0.6); BETA 2 GLOBULIN 0.3 g/dL (0.2-0.5); GAMMA GLOBULIN 0.7 g/dL (0.8-1.7); PROTEIN, TOTAL 5.7 g/dL (6.1-8.1)
[2019-06-07 13:40] LABS: Vitamin B1(Thiamin) Plas/Ser 209 nmol/L (8-30)
== END 2019-06-03 11:00 | disposition left against medical advice (07) | DRG 917 ==
LOC: ER 18:29 → ICU 21:14 → MEDSURG 06-01 15:50
PROVIDERS: Admitting Provider Internal Medicine; Emergency Provider Family Medicine; Visit Provider Family Medicine
DX: T42.4X1A Poisoning by benzodiazepines, accidental (unintentional), initial encounter (principal); J69.0 Pneumonitis due to inhalation of food and vomit; A41.9 Sepsis, unspecified organism; J96.00 Acute respiratory failure, unspecified whether with hypoxia or hypercapnia; E87.2 Acidosis; N17.9 Acute kidney failure, unspecified; F10.10 Alcohol abuse, uncomplicated; E87.6 Hypokalemia; N14.1 Nephropathy induced by other drugs, medicaments and biological substances; T36.8X5A Adverse effect of other systemic antibiotics, initial encounter; Y92.239 Unspecified place in hospital as the place of occurrence of the external cause; T51.91XA Toxic effect of unspecified alcohol, accidental (unintentional), initial encounter; Z88.2 Allergy status to sulfonamides; F17.210 Nicotine dependence, cigarettes, uncomplicated; Z79.82 Long term (current) use of aspirin; Z79.899 Other long term (current) drug therapy
CPT/HCPCS: 12345; 36415; 36416; 36600; 51702; 70450; 71045; 72125; 76705; 76770; 80051; 80053; 80202; 80307; 81003; 82570; 82607; 82746; 82803; 82810; 82962; 83036; 83605; 83690; 83735; 83986; 84100; 84145; 84155; 84165; 84300; 84425; 84484; 85025; 85999; 86140; 87040; 87070; 87205; 87804; 93005; 94002; 94003; 94640; 94799; 96365; 96366; 96372; 96374; 96375; 97161; 97530; 99284; C9113; J1630; J1650; J2060; J2405; J2543; J2704; J3010; J3370; J3411; J3480; J3490; J7030; J7050; J7512

== ENCOUNTER 2019-06-07 17:32 | Emergency (ER) | payer BC, SELFPAY ==
[2019-06-07] VITALS (8 sets, daily range): BP systolic 172–209; BP diastolic 80–144; PULSE 76–87; RESP 16–18; TEMP 36.7; O2SAT 94–99
--- NOTE | 2019-06-07 17:33 | CTR_ITS ---
PROCEDURE INFORMATION: Exam: CT Head Without Contrast Exam date and time: 06/07/2019 5:37 PM Age: 59 years old Clinical indication: Weakness, extremity; Right; Patient HX: RT side extremities weakness 35 mins ago. High BP; Additional info: Symptoms of acute stroke TECHNIQUE: Imaging protocol: Computed tomography of the head without contrast. Total DLP: 787.87 mGy-cm Radiation optimization: All CT scans at this facility use at least one of these dose optimization techniques: automated exposure control; mA and/or kV adjustment per patient size (includes targeted exams where dose is matched to clinical indication); or iterative reconstruction. Other technique: STROKE PROTOCOL was implemented. COMPARISON: No relevant prior studies available. FINDINGS: Brain: Normal. No hemorrhage. Unremarkable white matter. No mass effect. Ventricles: There is no hydrocephalus. Bones/joints: Unremarkable. No acute fracture. Sinuses: Visualized sinuses are unremarkable. No fluid levels. Mastoid air cells: There is a trace of fluid in the right mastoids. Soft tissues: Unremarkable. Dental: There is volume loss. There are bilateral frontoparietal areas of abnormal white matter lucency near the vertex. There is a similar less extensive area of white matter lucency in the right occipital lobe. This does not extend to the cortex. The appearance is most consistent with vasogenic edema. No hemorrhage or extra-axial collection. CT/CT head wo con* [id number] IMPRESSION: Bilateral areas of white matter edema near the vertex. Additional area in the right occipital lobe. The appearance is most consistent with vasogenic edema no definite masses identified. This may represent PRES, superior frontal sulcus dominant pattern. Underlying isodense masses are also possible. Recommend MRI. ASSESSMENT: ASPECTS ([place] Stroke Program Early CT Score) is 10 Radiation Dose CTDIVOL = (mGy): DLP = 787.87 (mGy-cm)
--- NOTE | 2019-06-07 17:33 | ECG_ITS ---
Measurements Intervals [place] Rate: 82 P: 38 WA: 140 QRS: 61 QRSD: 89 T: 46 QT: 317 QTc: 371 SINUS RHYTHM NONSPECIFIC T-WAVE ABNORMALITY Compared to ECG 09/04/2017 09:35:12 T-wave abnormality now present Electronically Signed On 06-08-2019 16:21:05 COMMERCIAL ARTIST by Patricia Pennington M.D. [email or web address]
--- NOTE | 2019-06-07 17:58 | W.ED.NEUROSD ---
HPI - Neuro Symptoms/Deficit General: Chief Complaint: Neuro Symptoms/Deficit Stated Complaint: neuro symptoms Time Seen by Provider: 06/07/19 17:51 History of Present Illness: Time: 17:05 Location: right leg Severity: moderate Quality: weak and numb Relieving factors: none Exacerbating factors: none Context: sudden onset On Anticoagulants: No Associated symptoms: Reports chest pain; Deny cough, diaphoresis, fevers/chills, headache(s), loss of appetite, short of breath or vomiting Treatments Prior to Arrival: none Review of Systems Const: Denies: diaphoresis Eyes: Denies: change in vision or blurry vision ENMT: Reports: painful swallowing; Denies: swelling of lips/tongue, bleeding gums, dental pain, Change in hearing, nose bleeds, post nasal drip or facial/sinus pain Card: Reports: chest pain Resp: Reports: non-productive cough; Denies: shortness of breath, productive cough or wheezing GI: Denies: vomiting : Denies: painful urination, urinary frequency, urinary urgency or blood in urine Musc: Denies: neck pain, back pain, redness or joint warmth Skin/Breast: Denies: rash, itching or redness Neuro: Denies: headache Psych: Reports: anxiety; Denies: visual hallucinations or auditory hallucinations PFSH ED PFSH: Statuses (acute, chronic, etc) shown below reflect problem list status as previously entered and may not be historically accurate Medical History (Updated 05/13/19 @ 09:44 by Gifty Montoya [facility]) Alcohol dependence, in remission (Acute) Generalized anxiety disorder (Acute) Panic disorder [episodic paroxysmal anxiety] (Acute) Social History Smoking and tobacco status: former smoker NIH stroke score NIHSS: Level Of Consciousness - 1a: 0 Level Of Consciousness Questions - 1b: Both Correct Level Of Consciousness Commands - 1c: Both Correct Best Gaze - 2: Normal Visual [place] - 3: No Visual Loss Facial Palsy - 4: Normal Motor Arm Right - 5: No Drift Motor Arm Left - 5: No Drift Motor Leg Right - 6: Effort Against [place] Motor Leg Left - 6: No Drift Limb Ataxia - 7: Present In One Limb Sensory - 8: Mild To Moderate Loss Best Language - 9: No Aphasia Dysarthia - 10: Normal Extinction And Inattention - 11: 0 Score: Total Score: 4 Physical Exam Const: GENERAL APPEARANCE: well developed ORIENTATION/CONSCIOUSNESS: Yes oriented to person, Yes oriented to place and Yes oriented to time HENMT: COMMON NORMALS: normocephalic, external ears normal and external nose normal HEAD & SCALP: normocephalic; no scalp tenderness FACE & SINUS: normal facial exam NOSE: external nose normal and no nasal discharge EXTERNAL EAR: Yes external ears normal MOUTH: tongue normal TEETH & GINGIVA: no abnormal tooth and associated gingiva THROAT: posterior oropharynx normal; no peritonsillar mass Eye: COMMON NORMALS: PERRL, EOMs intact bilaterally and conjunctivae normal EYELID: eyelids normal CONJUNCTIVA: Yes conjunctivae normal PUPIL: Yes PERRL Chest: COMMONS NORMALS: inspection of chest normal CHEST: No tenderness Resp: COMMON NORMALS: clear to auscultation bilaterally EFFORT & INSPECTION: No tachypneic, No respiratory distress, No retractions, No uses accessory muscles and No tracheal deviation AUSCULTATION: clear to auscultation bilaterally, no rhonchi, no wheezes and lung sounds not diminished Cardio: COMMON NORMALS: regular rate and regular rhythm RATE: regular rate RHYTHM: regular rhythm HEART SOUNDS: no murmurs PERIPHERAL PULSES: radial pulses present GI: INSPECTION: No abdominal distension AUSCULTATION: No hyperactive bowel sounds and No hypoactive bowel sounds PALPATION: No guarding and No rigid PERCUSSION: no dullness to percussion and no tympanic to percussion : COMMON NORMALS: Yes no CVA tenderness BLADDER/KIDNEY EXAM: Yes no CVA tenderness Back/Pelvis: COMMON NORMALS: no CVA tenderness Neuro: SENSORIUM/ORIENTATION: Yes oriented to person, Yes oriented to place and Yes oriented to time Psych: COMMON NORMALS: mental status grossly normal Skin: COMMON NORMALS: no rashes or lesions noted GENERAL SKIN EXAM: no rashes or lesions noted Course ED course: 59-year-old lady recently discharged from the hospital. She presents hypertensive, with right lower extremity weakness that is significant. She has paresthesia to the right lower extremity as well. She has an NIH of 4. We spoke with neurology at [facility] in [place] who covers our stroke this weekend. CT findings show a white matter change at the vertex of the brain bilaterally. This could be vasogenic edema, concerning for a sinus clot. Also in the differential is a mass. MRI with venogram is suggested. We will likely not be able to get this tonight at our facility. We also have no in-house neurology coverage. Because of this, we elected to transfer her to [facility]. She will go to the ER for the MRI venogram, and then to the floor for neurology consultation. We obviously also have no neurovascular interventional capabilities here. At the time of transfer, she was now able to lift her right lower extremity off the bed, still exhibiting some weakness. No other focal neurologic deficits besides the paresthesia. She was also given potassium for her significantly low potassium. Vital Signs: Vital signs: Vital Signs Temperature 98.1 F 06/07/19 17:34 Pulse Rate 84 06/07/19 20:17 Respiratory Rate 18 06/07/19 20:17 Blood Pressure 195/101 06/07/19 20:17 Pulse Oximetry 98 06/07/19 20:17 MDM - Neuro Symptoms/Deficit Lab Data: Labs: Lab Results 06/07/19 06/07/19 06/07/19 Range/Units 17:57 17:58 17:58 WBC 10.1 H (4.0-10.0) 10^3/ uL RBC 3.41 L (4.1-5.3) 10^6/u L Hgb 10.4 L (11.5-15.3) g/dL Hct 30.9 L (37.0-47.0) % MCV 90.6 (81-99) fL MCH 30.5 (28.0-34.0) pg MCHC 33.7 (30.0-36.0) g/dL RDW 14.2 (12.1-15.1) % Plt Count 422 H (130-400) 10^3/c mm MPV 8.7 (7.4-10.4) fL Neut % (Auto) 66.6 % Lymph % (Auto) 20.3 % Dillon % (Auto) 9.1 % Eos % (Auto) 3.0 % Baso % (Auto) 0.5 % Neut # (Auto) 6.8 (1.8-7.7) 10^3/u L Lymph # (Auto) 2.1 (0.8-4.8) 10^3/u L Dillon # (Auto) 0.9 (0.2-0.9) 10^3/u L Eos # (Auto) 0.3 (0.0-0.8) 10^3/u L Baso # (Auto) 0.1 (0.0-0.1) 10^3/u L Nucleated RBC % (a uto) 0 % Nucleated RBCs # 0.0 /100WBC PT 13.10 (10.5-13.3) SECO NDS INR 0.96 (0.8-1.2) APTT 28.1 (23.9-36.7) SECO NDS Sodium (136-145) mmol/L Potassium (3.5-5.1) mmol/L Chloride (98-107) mmol/L Carbon Dioxide (22-29) mmol/L Anion Gap (5-19) BUN (6-20) mg/dL Creatinine (0.5-0.9) mg/dL GFR Calculation (90-130) mL/min Glucose (74-109) mg/dL POC Glucose 92 (70-110) mg/dL Calcium (8.5-10.5) mg/dL Total Bilirubin (0.15-1.2) mg/dL AST (0-32) U/L ALT (0-33) U/L Alkaline Phosphata se (35-105) IU/L Ammonia (11-51) umol/L Troponin T Baselin e (0-10) ng/mL Total Protein (6.6-8.7) g/dL Albumin (3.5-5.2) g/dL Globulin (1.3-4.6) g/dL Ethyl Alcohol (0-10) mg/dL 06/07/19 06/07/19 06/07/19 Range/Units 17:58 17:58 17:58 WBC (4.0-10.0) 10^3/ uL RBC (4.1-5.3) 10^6/u L Hgb (11.5-15.3) g/dL Hct (37.0-47.0) % MCV (81-99) fL MCH (28.0-34.0) pg MCHC (30.0-36.0) g/dL RDW (12.1-15.1) % Plt Count (130-400) 10^3/c mm MPV (7.4-10.4) fL Neut % (Auto) % Lymph % (Auto) % Dillon % (Auto) % Eos % (Auto) % Baso % (Auto) % Neut # (Auto) (1.8-7.7) 10^3/u L Lymph # (Auto) (0.8-4.8) 10^3/u L Dillon # (Auto) (0.2-0.9) 10^3/u L Eos # (Auto) (0.0-0.8) 10^3/u L Baso # (Auto) (0.0-0.1) 10^3/u L Nucleated RBC % (a uto) % Nucleated RBCs # /100WBC PT (10.5-13.3) SECO NDS INR (0.8-1.2) APTT (23.9-36.7) SECO NDS Sodium 144 (136-145) mmol/L Potassium 2.7 L* (3.5-5.1) mmol/L Chloride 102 (98-107) mmol/L Carbon Dioxide 26 (22-29) mmol/L Anion Gap 18.7 (5-19) BUN 15 (6-20) mg/dL Creatinine 2.1 H (0.5-0.9) mg/dL GFR Calculation 24.1 L (90-130) mL/min Glucose 111 H (74-109) mg/dL POC Glucose (70-110) mg/dL Calcium 9.3 (8.5-10.5) mg/dL Total Bilirubin 0.4 (0.15-1.2) mg/dL AST 25 (0-32) U/L ALT 22 (0-33) U/L Alkaline Phosphata se 110 H (35-105) IU/L Ammonia (11-51) umol/L Troponin T Baselin e 27 H (0-10) ng/mL Total Protein 7.3 (6.6-8.7) g/dL Albumin 3.7 (3.5-5.2) g/dL Globulin 3.6 (1.3-4.6) g/dL Ethyl Alcohol < 10 (0-10) mg/dL 06/07/19 Range/Units 18:37 WBC (4.0-10.0) 10^3/ uL RBC (4.1-5.3) 10^6/u L Hgb (11.5-15.3) g/dL Hct (37.0-47.0) % MCV (81-99) fL MCH (28.0-34.0) pg MCHC (30.0-36.0) g/dL RDW (12.1-15.1) % Plt Count (130-400) 10^3/c mm MPV (7.4-10.4) fL Neut % (Auto) % Lymph % (Auto) % Dillon % (Auto) % Eos % (Auto) % Baso % (Auto) % Neut # (Auto) (1.8-7.7) 10^3/u L Lymph # (Auto) (0.8-4.8) 10^3/u L Dillon # (Auto) (0.2-0.9) 10^3/u L Eos # (Auto) (0.0-0.8) 10^3/u L Baso # (Auto) (0.0-0.1) 10^3/u L Nucleated RBC % (a uto) % Nucleated RBCs # /100WBC PT (10.5-13.3) SECO NDS INR (0.8-1.2) APTT (23.9-36.7) SECO NDS Sodium (136-145) mmol/L Potassium (3.5-5.1) mmol/L Chloride (98-107) mmol/L Carbon Dioxide (22-29) mmol/L Anion Gap (5-19) BUN (6-20) mg/dL Creatinine (0.5-0.9) mg/dL GFR Calculation (90-130) mL/min Glucose (74-109) mg/dL POC Glucose (70-110) mg/dL Calcium (8.5-10.5) mg/dL Total Bilirubin (0.15-1.2) mg/dL AST (0-32) U/L ALT (0-33) U/L Alkaline Phosphata se (35-105) IU/L Ammonia 10 L (11-51) umol/L Troponin T Baselin e (0-10) ng/mL Total Protein (6.6-8.7) g/dL Albumin (3.5-5.2) g/dL Globulin (1.3-4.6) g/dL Ethyl Alcohol (0-10) mg/dL Discharge Plan Discharge Prescriptions: No Action citalopram [Celexa] 20 mg tablet 20 mg PO DAILY Qty: 30 RF: 2 alprazolam [Xanax] 1 mg tablet 1 mg PO TID PRN (Reason: anxiety) Qty: 90 RF: 2 omeprazole 40 mg Capsule,Delayed Release(Dr/Ec) 40 mg PO DAILY RF: 0 Linzess 145 mcg Capsule 145 mcg PO DAILY RF: 0 trazodone 100 mg tablet 100 mg PO BEDTIME RF: 0 Excedrin Migraine 250-250-65 mg Tablet 1 tab PO Q6H PRN (Reason: Migraine Headache) RF: 0 Referrals: María Mcnally MD [Primary Care Provider] - Discharge Date/Time: 06/07/19 20:26 Coding Level of Care Code ED Senior Net Architect for Jason Smith
[2019-06-07 17:59] LABS: Glucose Point of Care 92 mg/dL (70-110)
[2019-06-07 18:03] LABS: Basophils # 0.1 10^3/uL (0.0-0.1); Basophils % 0.5 %; Eosinophils # 0.3 10^3/uL (0.0-0.8); Hematocrit 30.9 % (37.0-47.0); Hemoglobin 10.4 g/dL (11.5-15.3); Lymphocytes # 2.1 10^3/uL (0.8-4.8); Lymphocytes % 20.3 %; Mean Corpuscular HGB Conc 33.7 g/dL (30.0-36.0); Mean Corpuscular Hemoglobin 30.5 pg (28.0-34.0); Mean Corpuscular Volume 90.6 fL (81-99); Mean Platelet Volume 8.7 fL (7.4-10.4); Monocytes # 0.9 10^3/uL (0.2-0.9); Monocytes % 9.1 %; Neutrophils # 6.8 10^3/uL (1.8-7.7); Neutrophils % 66.6 %; Nucleated Red Blood Cells % 0 %; Platelet Count 422 10^3/cmm (130-400); Red Blood Count 3.41 10^6/uL (4.1-5.3); Red Cell Distribution Width 14.2 % (12.1-15.1); White Blood Count 10.1 10^3/uL (4.0-10.0)
[2019-06-07] MEDS: labetalol 5 mg/mL SDV 20mL 10 MG IVP ×2 (18:03→18:27)
--- NOTE | 2019-06-07 18:08 | XRR_ITS ---
PROCEDURE INFORMATION: Exam: XR Chest, 1 View Exam date and time: 06/07/2019 6:10 PM Age: 59 years old Clinical indication: Chest pain; Type not specified; Additional info: Cp TECHNIQUE: Imaging protocol: XR of the chest Views: 1 view. COMPARISON: No relevant prior studies available. FINDINGS: Lungs: Interstitial prominence and basilar airspace disease. Pleural space: Small pleural effusions. Heart/Mediastinum: Epicardial fat accentuates the cardiac silhouette. Diaphragm: Asymmetric elevation of the right hemidiaphragm. Bones/joints: Mild scoliosis. XR/XR chest 1V portable [id number] IMPRESSION: 1. Interstitial prominence and basilar airspace disease. 2. Small pleural effusions.
[2019-06-07 18:13] LABS: INR 0.96 (0.8-1.2)
[2019-06-07 18:14] LABS: Partial Thromboplastin Time 28.1 SECONDS (23.9-36.7)
[2019-06-07 18:22] LABS: Alanine Aminotransferase 22 U/L (0-33); Albumin Level 3.7 g/dL (3.5-5.2); Alkaline Phosphatase 110 IU/L (35-105); Anion Gap 18.7 (5-19); Aspartate Amino Transferase 25 U/L (0-32); Blood Urea Nitrogen 15 mg/dL (6-20); Calcium 9.3 mg/dL (8.5-10.5); Carbon Dioxide 26 mmol/L (22-29); Chloride 102 mmol/L (98-107); Globulin 3.6 g/dL (1.3-4.6); Glomerular Filtration Rate 24.1 mL/min (90-130); Glucose 111 mg/dL (74-109); Sodium 144 mmol/L (136-145); Total Bilirubin 0.4 mg/dL (0.15-1.2); Total Protein 7.3 g/dL (6.6-8.7)
[2019-06-07 18:28] LABS: Potassium 2.7 mmol/L (3.5-5.1)
[2019-06-07] MEDS: LORazepam 2 mg/mL INJ 1 mL 1.5 MG IVP (18:37)
[2019-06-07 18:42] LABS: Troponin(5th) Baseline 27 ng/mL (0-10)
[2019-06-07 18:45] LABS: Alcohol Level < 10 mg/dL (0-10)
[2019-06-07 18:54] LABS: Ammonia 10 umol/L (11-51)
--- NOTE | 2019-06-07 19:04 | PC.NURSE ---
REPORT RECEIVED FROM ANIVAL GIFFORD AND CARE TRANSFERRED TO ANIVAL WILEY
[2019-06-07] MEDS: labetalol 5 mg/mL SDV 20mL 20 MG IVP (19:57)
[2019-06-07] MEDS: enalaprilat 1.25 mg/mL Inj IVP (19:57)
== END 2019-06-07 20:26 ==
PROVIDERS: Emergency Medicine; Emergency Provider Emergency Medicine; Family Provider Family Medicine; PCP Family Medicine
DX: R53.1 Weakness (principal); R20.0 Anesthesia of skin; Z87.891 Personal history of nicotine dependence
CPT/HCPCS: 36416; 70450; 71045; 80053; 80307; 82140; 82962; 84484; 85025; 85610; 85730; 93005; 96365; 96366; 96374; 96375; 96376; 99284; 99285; A9270; J2060; J3480; J3490

== ENCOUNTER 2019-06-27 13:04 | Outpatient (RCR) | payer BC, SELFPAY | END 2019-07-06 23:59 | disposition home or self-care (01) | LOC: SPT 13:04 | PROVIDERS: Family Provider Family Medicine; PCP Family Medicine; Referring Provider Family Medicine; Visit Provider Family Medicine | DX: R53.1 Weakness (principal) | CPT/HCPCS: 97110; 97112; 97162 ==

== ENCOUNTER 2019-07-07 06:00 | Outpatient (RCR) | payer BC, SELFPAY | END 2019-08-06 23:59 | disposition home or self-care (01) | LOC: SPT 06:00 | PROVIDERS: Family Provider Family Medicine; PCP Family Medicine; Referring Provider Family Medicine; Visit Provider Family Medicine | DX: R53.1 Weakness (principal) | CPT/HCPCS: 97110; 97112 ==

== ENCOUNTER → 2019-08-28 07:42 | Outpatient (BNVA) | payer BC, SELFPAY | PROVIDERS: Family Provider Family Medicine; PCP Family Medicine; Visit Provider Nurse Practitioner | DX: F41.1 Generalized anxiety disorder (principal); F41.0 Panic disorder [episodic paroxysmal anxiety]; F10.20 Alcohol dependence, uncomplicated | CPT/HCPCS: 99214 ==

== ENCOUNTER → 2019-10-22 07:40 | Outpatient (BNVA) | payer BC, SELFPAY | PROVIDERS: Family Provider Family Medicine; PCP Family Medicine; Visit Provider Nurse Practitioner | DX: F41.1 Generalized anxiety disorder (principal); F41.0 Panic disorder [episodic paroxysmal anxiety] | CPT/HCPCS: 99213 ==

== ENCOUNTER → 2020-01-14 07:27 | Outpatient (BNVA) | payer BC, SELFPAY | PROVIDERS: Family Provider Family Medicine; PCP Family Medicine; Visit Provider Nurse Practitioner | DX: F41.1 Generalized anxiety disorder (principal); F41.0 Panic disorder [episodic paroxysmal anxiety] | CPT/HCPCS: 99214 ==

== ENCOUNTER → 2020-04-15 07:47 | Outpatient (BNVA) | payer BC, SELFPAY | PROVIDERS: Family Provider Family Medicine; PCP Family Medicine; Visit Provider Nurse Practitioner | DX: F41.0 Panic disorder [episodic paroxysmal anxiety] (principal); F41.1 Generalized anxiety disorder | CPT/HCPCS: 99214 ==

== ENCOUNTER → 2020-07-10 07:47 | Outpatient (BNVA) | payer BC, SELFPAY | PROVIDERS: Family Provider Family Medicine; PCP Family Medicine; Visit Provider Nurse Practitioner | DX: F41.1 Generalized anxiety disorder (principal); F41.0 Panic disorder [episodic paroxysmal anxiety] | CPT/HCPCS: 99214 ==

== ENCOUNTER 2020-08-10 09:15 | Outpatient (CLI) | payer OTHER, SELFPAY ==
--- NOTE | 2020-08-10 09:24 | MM_ITS ---
WS: [id number] BILATERAL SCREENING DIGITAL MAMMOGRAM WITH CAD HISTORY: SCREENING COMPARISON: 12/31/2018 and 12/26/2017 Bilateral CC and MLO views submitted. Computer aided detection analyzed. Breast composition: There are scattered areas of fibroglandular density. No suspicious masses, microc alcifications or architectural distortion. MM/[id number] IMPRESSION: BI-RADS: 1-Negative FOLLOW UP: 1 Year Follow-up
== END 2020-08-10 09:16 | disposition home or self-care (01) ==
LOC: RADSHAW 09:18
PROVIDERS: PCP Family Medicine; Visit Provider Family Medicine
DX: Z12.31 Encounter for screening mammogram for malignant neoplasm of breast (principal)
CPT/HCPCS: 77067

== ENCOUNTER → 2020-10-09 08:53 | Outpatient (BNVA) | payer OTHER, SELFPAY | PROVIDERS: Family Provider Family Medicine; PCP Family Medicine; Visit Provider Nurse Practitioner | DX: F41.1 Generalized anxiety disorder (principal); F41.0 Panic disorder [episodic paroxysmal anxiety] | CPT/HCPCS: 99214 ==

== ENCOUNTER → 2021-06-22 10:13 | Outpatient (BNVA) | payer MEDICAID, SELFPAY | PROVIDERS: PCP Family Medicine; Visit Provider Nurse Practitioner | DX: F41.1 Generalized anxiety disorder (principal); F41.0 Panic disorder [episodic paroxysmal anxiety] | CPT/HCPCS: 99214 ==

== ENCOUNTER → 2021-08-25 08:41 | Outpatient (BNVA) | payer MEDICAID, SELFPAY | PROVIDERS: PCP Family Medicine; Visit Provider Nurse Practitioner | DX: F41.1 Generalized anxiety disorder (principal); F41.0 Panic disorder [episodic paroxysmal anxiety] | CPT/HCPCS: 80053; 99214 ==

== ENCOUNTER 2021-10-06 10:32 | Outpatient (CLI) | payer MEDICAID, SELFPAY ==
--- NOTE | 2021-10-06 10:45 | MM_ITS ---
WS: [id number] Bilateral screening 3D tomosynthesis digital mammogram, 10/06/2021 Clinical Data: SCREENING Comparison: 08/10/2020, 12/31/2018, 12/26/2017, 08/29/2016, 06/29/2012. Findings: The breast parenchymal pattern shows fibroglandular tissue. No spiculated masses or clustered calcifi cations are seen. There are no secondary signs of carcinoma. There is a mole marker on the left breas t. There are lymph nodes in both axilla. MM/[id number] Impression: 1. Negative bilateral mammogram unchanged. 2. Recommend annual screening mammograms. BIRADS: 1-Negative FOLLOW UP: 1 Year Follow-up The CAD drawing checker was used.
== END 2021-10-06 10:33 | disposition home or self-care (01) ==
LOC: RAD 10:37
PROVIDERS: PCP Family Medicine; Visit Provider Family Medicine
DX: Z12.31 Encounter for screening mammogram for malignant neoplasm of breast (principal)
CPT/HCPCS: 77063; 77067

== ENCOUNTER 2021-12-23 09:30 | Observation (INO) | payer MEDICAID, SELFPAY ==
[2021-12-23] VITALS (12 sets, daily range): BP systolic 92–131; BP diastolic 56–76; PULSE 60–82; RESP 15–20; TEMP 36.4–36.6; O2SAT 85–96; BMI 28.0
--- NOTE | 2021-12-23 10:01 | XR_ITS ---
WS: [id number] Portable AP upright chest, 12/23/2021 Clinical Data: dyspnea/cough Comparison: PA and lateral chest, 12/21/2021. Findings: No nodules, masses or effusions are seen. The heart is normal. The pulmonary vascularity is not increased. No pneumonia or pneumothorax is seen. The right diaphragm remains slightly elevated. XR/XR chest 1V portable [id number] Impression: Negative chest.
--- NOTE | 2021-12-23 10:02 | ECG_ITS ---
[facility] Test Date: 2021-12-23 Pat Name: Cami De La Rosa Department: Room: Gender: Female Clinical Quality Rn: : 1960 Requested By: Cain Prado Order Number: [id number] Adonay MD: Patricia Pennington M.D. Measurements Intervals [place] Rate: 70 P: -15 [place]: 186 QRS: 56 QRSD: 86 T: 22 QT: 398 QTc: 429 Interpretive Statements SINUS RHYTHM NONSPECIFIC T-WAVE ABNORMALITY Compared to ECG 06/07/2019 18:02:34 No significant changes Electronically Signed On 12-23-2021 22:42:41 CDT by Patricia Pennington M.D. [id number]
[2021-12-23] MEDS: ipratropium-albuterol 3 mL Neb INHALATION ×2 (10:18→21:25)
--- NOTE | 2021-12-23 10:26 | ED_ITS ---
HPI - SOB/Dyspnea General: Chief Complaint: Shortness of Breath/Dyspnea Stated Complaint: sob Time Seen by Provider: 12/23/21 10:01 Source: patient Mode of arrival: ambulatory Limitations: no limitations History of Present Illness: HPI Narrative: 61-year-old female who presents to the emergency room complaining of shortness of breath. She states that the shortness of breath for the last 3 weeks she has myalgias Malays with some nausea and vomiting no diarrhea. She had a no nproductive cough (although she describes her cough is productive to the nurse in the triage note.). She has significant wheezing. She seen her doctor for it and she was tested for COVID and tested negative. She states her symptoms have gotten progressively worse she is a former smoker. She denies any chest pain. Symptoms are worsened with exertion relieved somewhat by rest but mostly relieve d by oxygen. On arrival here today she was 85% on room air on 2 L by nasal cannula increases to the mid 90s. She denies any fever sweats or chills but she does have some mild central chest discomfort. She has some chronic orthopnea but she does not feel it is worsened recently. MD elicited complaint: shortness of breath and cough Onset (ago): week(s) (2) Context: occurred during exertion Timing: constant and progressively worsening Severity: moderate Exacerbating factors: exertion Relieving factors: oxygen and rest Known history of: COPD Associated symptoms: Reports chest congestion, chest pain, cough, lightheadedness and orthopnea; Deny abdominal pain, diaphoresis, dizziness, extremity pain, fever(s), hemoptysis, myalgias, nausea, palpitations, paresthesias, polydipsia, polyuria, rash, syncope or vomiting Treatment prior to arrival: none Review of Systems Const: Reports: fatigue and malaise; Denies: fever(s), chills or diaphoresis ENMT: Denies: throat pain, ear or mastoid pain, nasal discharge or nasal congestion Card: Reports: chest pain, lightheadedness and orthopnea; Denies: palpitations or syncope Resp: Reports: dyspnea, non-productive cough, wheezing and chest congestion; Denies: hemoptysis GI: Denies: abdominal pain, nausea or vomiting : Denies: flank pain, difficulty voiding, dysuria, urinary frequency or urinary urgency Musc: Denies: extremity pain Skin/Breast: Denies: rash or pruritus Neuro: Denies: dizziness Endo: Denies: polyuria or polydipsia PFSH ED PFSH: Medical History Adhesive capsulitis Alcohol abuse Alcohol dependence, in remission Alcohol dependence, in remission Alcohol dependence, uncomplicated Anxiety Baseline state Cervical radiculopathy Generalized anxiety disorder Major depressive disorder Osteoarthritis of shoulder Panic disorder [episodic paroxysmal anxiety] Psychiatric care Surgical History No pertinent past surgical history Family History Other Hyperlipidemia Hypertension Denies family history of Psychiatric illness Suicide Stroke Social History Smoking and tobacco status: heavy tobacco smoker cigarettes Packs smoked per day: 1 Alcohol intake: former Last alcohol use date: 07/08/21 Household members: spouse Housing: House Marital status: Physical Exam Const: GENERAL APPEARANCE: cooperative and comfortable ORIENTATION/CONSCIOUSNESS: Yes awake, Yes oriented to person, Yes oriented to place and Yes oriented to time HENMT: COMMON NORMALS: normocephalic, atraumatic and hearing grossly normal bilaterally HEAD & SCALP: normocephalic and atraumatic Resp: COMMON NORMALS: normal respiratory effort, No retractions and No use of accessory muscles AUSCULTATION: rhonchi and wheezes Cardio: COMMON NORMALS: regular rate, regular rhythm and No murmurs present (Cardio) RATE: regular rate RHYTHM: regular rhythm GI: COMMON NORMALS: Soft to palpation and No hepatosplenomegaly present AUSCULTATION: Yes normoactive bowel sounds PALPATION: Yes Soft to palpation, No Tenderness to palpation present (GI), No Guarding due to palpation present (GI) and Yes No hepatosplenomegaly present Extremity: COMMON NORMALS: normal to inspection, capillary refill normal, no clubbing, cyanosis or edema, no calf tenderness and no pedal edema Neuro: SENSORIUM/ORIENTATION: Yes oriented to person, Yes oriented to place and Yes oriented to time Skin: COMMON NORMALS: no rashes or lesions noted GENERAL SKIN EXAM: no rashes or lesions noted Course Vital Signs: Vital signs: Vital Signs Temperature 97.9 F 12/23/21 09:35 Pulse Rate 77 12/23/21 16:28 Respiratory Rate 19 H 12/23/21 11:00 Blood Pressure 119/76 12/23/21 16:28 Pulse Oximetry 93 12/23/21 16:28 Oxygen Delivery Me thod 12/23/21 16:28 Oxygen Flow Rate 2 12/23/21 16:28 MDM - SOB/Dyspnea Medical Decision Making COVID is negative. She does have quite a bit of improvement with steroids and nebulizers. However she remains with considerable wheezing and rhonchi her chest x-ray is unremarkable. We will go admitted for exacerbation of COPD discussed with hospitalist orders written Medical Records I reviewed the patient's medical records. Lab Data I reviewed the patient's lab results. : 12/23/21 10:40 12/23/21 10:40 Labs/Radiology: Radiology Impressions Chest X-Ray 12/23/21 10:01 Impression: Negative chest. Laboratory Results WBC 4.6 10^3/uL (4.0-10.0) 12/23/21 10:40 RBC 4.34 10^6/uL (4.1-5.3) 12/23/21 10:40 Hgb 13.2 g/dL (11.5-15.3) 12/23/21 10:40 Hct 40.4 % (37.0-47.0) 12/23/21 10:40 MCV 93.1 fl (81-99) 12/23/21 10:40 MCH 30.4 pg (28.0-34.0) 12/23/21 10:40 MCHC 32.7 g/dL (30.0-36.0) 12/23/21 10:40 RDW 12.5 % (12.1-15.1) 12/23/21 10:40 Plt Count 173 10^3/cmm (130-400) 12/23/21 10:40 MPV 8.9 fL (7.4-10.4) 12/23/21 10:40 Neut % (Auto) 48.6 % 12/23/21 10:40 Lymph % (Auto) 26.1 % 12/23/21 10:40 Bullock % (Auto) 16.2 % 12/23/21 10:40 Eos % (Auto) 7.8 % 12/23/21 10:40 Baso % (Auto) 1.1 % 12/23/21 10:40 Neut # (Auto) 2.26 10^3/uL (1.8-7.7) 12/23/21 10:40 Lymph # (Auto) 1.2 10^3/uL (0.8-4.8) 12/23/21 10:40 Bullock # (Auto) 0.8 10^3/uL (0.2-0.9) 12/23/21 10:40 Eos # (Auto) 0.4 10^3/uL (0.0-0.8) 12/23/21 10:40 Baso # (Auto) 0.1 10^3/uL (0.0-0.1) 12/23/21 10:40 Nucleated RBC % (auto) 0 % 12/23/21 10:40 Nucleated RBCs # 0.0 /100WBC 12/23/21 10:40 Specimen Type Arterial 12/23/21 10:16 Sample Site Brachial, left 12/23/21 10:16 ABG pH 7.36 (7.35-7.45) 12/23/21 10:16 ABG pCO2 50.9 mmHg (35-45) H 12/23/21 10:16 ABG pO2 71.0 mmHg (80.0-100.0) L 12/23/21 10:16 ABG HCO3 28.6 mmol/L (22-26) H 12/23/21 10:16 ABG O2 Saturation 95.1 12/23/21 10:16 ABG Base Excess 2.2 mmol/L (-2.0-2.0) H 12/23/21 10:16 Chung Test Pos 12/23/21 10:16 A-a O2 Gradient 2.2 mmHg (5-10) L 12/23/21 10:16 Hematocrit 40.7 % (37-47) 12/23/21 10:16 Hgb O2 Saturation 93.2 % (95-100) L 12/23/21 10:16 Carboxyhemoglobin 1.1 %THgb (0.4-20.1) 12/23/21 10:16 Methemoglobin 0.9 % (0.4-1.5) 12/23/21 10:16 Total Hemoglobin 13.3 g/dL (12-16) 12/23/21 10:16 Sodium 142.0 mmol/L (131-143) 12/23/21 10:16 Potassium 3.8 mmol/L (3.5-5.0) 12/23/21 10:16 Glucose 98.0 mg/dL (70-115) 12/23/21 10:16 Ionized Calcium 1.2 mmol/L (1.1-1.4) 12/23/21 10:16 O2 Delivery Device Nc 12/23/21 10:16 O2 Liters/Min 2.0 % 12/23/21 10:16 Dowel Sander Operator ID Cak 12/23/21 10:16 Sodium 140 mmol/L (136-145) 12/23/21 10:40 Potassium 3.8 mmol/L (3.5-5.1) 12/23/21 10:40 Chloride 104 mmol/L (98-107) 12/23/21 10:40 Carbon Dioxide 28 mmol/L (22-29) 12/23/21 10:40 Anion Gap 11.8 (5-19) 12/23/21 10:40 BUN 10 mg/dL (8-23) 12/23/21 10:40 Creatinine 0.6 mg/dL (0.5-0.9) 12/23/21 10:40 GFR Calculation 101.6 mL/min (90-130) 12/23/21 10:40 Glucose 91 mg/dL (65-115) 12/23/21 10:40 Calculated Osmolality 289 mOsm/kg (285-295) 12/23/21 10:40 Calcium 8.5 mg/dL (8.5-10.5) 12/23/21 10:40 Total Bilirubin 0.2 mg/dL (0.15-1.2) 12/23/21 10:40 AST 24 U/L (0-32) 12/23/21 10:40 ALT 36 U/L (0-33) H 12/23/21 10:40 Alkaline Phosphatase 96 U/L (35-105) 12/23/21 10:40 Troponin T Baseline 6 ng/L (0-10) 12/23/21 10:40 Troponin T 120 Minute 6.00 ng/L (0-10) 12/23/21 12:32 Delta Troponin T 0 ABS# (0-10) 12/23/21 12:32 NT-Pro-B Natriuret Pep 359 pg/mL (0-125) H 12/23/21 10:40 Total Protein 6.3 g/dL (6.6-8.7) L 12/23/21 10:40 Albumin 3.4 g/dL (3.5-5.2) L 12/23/21 10:40 Globulin 2.9 g/dL (1.3-4.6) 12/23/21 10:40 Urine Color Yellow (Yellow) 12/23/21 10:55 Urine Appearance Clear (CLEAR) 12/23/21 10:55 Urine pH 5 (5-7) 12/23/21 10:55 Ur Specific [place] 1.020 (1.005-1.030) 12/23/21 10:55 Urine Protein Neg (Negative) 12/23/21 10:55 Urine Glucose (UA) Norm (Normal) 12/23/21 10:55 Urine Ketones 1+ (Negative) H 12/23/21 10:55 Urine Blood Neg (Negative) 12/23/21 10:55 Urine Nitrate Negative (Negative) 12/23/21 10:55 Urine Bilirubin Neg (Negative) 12/23/21 10:55 Urine Urobilinogen 1 mg/dL (Negative) H 12/23/21 10:55 Ur Leukocyte Esterase Negative (Negative) 12/23/21 10:55 Coronavirus 229E (PCR) Not detected (NOT DETECT) 12/23/21 12:45 RSV Type A (PCR) Detected (NOT DETECT) A 12/23/21 14:56 RSV Type B (PCR) Not detected (NOT DETECT) 12/23/21 14:56 SARS-CoV-2 (PCR) Not detected (NOT DETECT) 12/23/21 12:45 Discharge Plan Discharge Patient Disposition: Placed in Observation Admit Provider: Mario Gaspar Clinical Impression: Acute exacerbation of chronic obstructive airways disease Coding Level of Care Code ED Housesmith for [facility] Fwd Exam Detailed
[2021-12-23 10:28] LABS: ABG PCO2 50.9 mmHg (35-45); ABG PH Result 7.36 (7.35-7.45); Alveolar-Arterial Oxygen Gradi 2.2 mmHg (5-10); Arterial Blood Gas Hematocrit 40.7 % (37-47); Base Excess ABG 2.2 mmol/L (-2.0-2.0); Blood Gas Allen Test Pos; Blood Gas Operator Identificat CAK; Blood Gas Sample Site Brachial, left; Blood Gas Sample Type Arterial; Carboxyhemoglobin 1.1 %THgb (0.4-20.1); HCO3 ABG 28.6 mmol/L (22-26); HGB O2 Sat 93.2 % (95-100); Ionized Calcium Level - ABG 1.2 mmol/L (1.1-1.4); Methemoglobin 0.9 % (0.4-1.5); Oxygen Device NC; Oxygen Saturation ABG 95.1; Potassium Level - ABG 3.8 mmol/L (3.5-5.0); Total Hemoglobin 13.3 g/dL (12-16)
[2021-12-23 11:01] LABS: Basophils # 0.1 10^3/uL (0.0-0.1); Basophils % 1.1 %; Eosinophils # 0.4 10^3/uL (0.0-0.8); Eosinophils % 7.8 %; Hematocrit 40.4 % (37.0-47.0); Hemoglobin 13.2 g/dL (11.5-15.3); Lymphocytes # 1.2 10^3/uL (0.8-4.8); Lymphocytes % 26.1 %; Mean Corpuscular HGB Conc 32.7 g/dL (30.0-36.0); Mean Corpuscular Hemoglobin 30.4 pg (28.0-34.0); Mean Corpuscular Volume 93.1 fl (81-99); Mean Platelet Volume 8.9 fL (7.4-10.4); Monocytes # 0.8 10^3/uL (0.2-0.9); Monocytes % 16.2 %; Neutrophils # 2.26 10^3/uL (1.8-7.7); Neutrophils % 48.6 %; Nucleated Red Blood Cells % 0 %; Platelet Count 173 10^3/cmm (130-400); Red Blood Count 4.34 10^6/uL (4.1-5.3); Red Cell Distribution Width 12.5 % (12.1-15.1); White Blood Count 4.6 10^3/uL (4.0-10.0)
[2021-12-23 11:17] LABS: Add Urine Microscopic? NO; Charge for UA Resulting for Rev
[2021-12-23 11:21] LABS: Bilirubin Urine Neg (Negative); Blood Urine Neg (Negative); Glucose Urine UA Norm (Normal); Ketones Urine 1+ (Negative); Leukocyte Esterase Urine Negative (Negative); Nitrate Urine Negative (Negative); Protein Urine Neg (Negative); Urine Appearance Clear (CLEAR); Urine Color Yellow (Yellow); Urobilinogen Urine 1 mg/dL (Negative); pH Urine 5 (5-7)
[2021-12-23 11:31] LABS: Troponin(5th) Baseline 6 ng/L (0-10)
--- NOTE | 2021-12-23 11:33 | PC.PHAR ---
PT STATE SHE TAKES CARE OF HER OWN MEDICATIONS-PT STATES SHE STOP TAKING HER LIPITOR 20MG ABOUT 2 WEEKS AGO STATES SHE WAS GETTING CRAMPS FROM IT-PT STATES SHE PICKED UP HER PREDNISONE FILLED ON 12/21/21 15D/S BUT HASNT TAKEN IT PT STATES SHE GETS AGITATED WHEN SHE TAKES PREDNISONE-
[2021-12-23 11:41] LABS: Alanine Aminotransferase 36 U/L (0-33); Albumin Level 3.4 g/dL (3.5-5.2); Alkaline Phosphatase 96 U/L (35-105); Anion Gap 11.8 (5-19); Aspartate Amino Transferase 24 U/L (0-32); Blood Urea Nitrogen 10 mg/dL (8-23); Calcium 8.5 mg/dL (8.5-10.5); Carbon Dioxide 28 mmol/L (22-29); Chloride 104 mmol/L (98-107); Globulin 2.9 g/dL (1.3-4.6); Glomerular Filtration Rate 101.6 mL/min (90-130); Glucose 91 mg/dL (65-115); NT Pro B Type Natriuretic Pept 359 pg/mL (0-125); Osmolality Calculated 289 mOsm/kg (285-295); Potassium 3.8 mmol/L (3.5-5.1); Sodium 140 mmol/L (136-145); Total Bilirubin 0.2 mg/dL (0.15-1.2); Total Protein 6.3 g/dL (6.6-8.7)
--- NOTE | 2021-12-23 13:09 | ECG_ITS ---
[facility] Test Date: 2021-12-23 Pat Name: Cami De La Rosa Department: Room: Gender: Female Leadership Intern: : 1960 Requested By: Cain Prado Order Number: [id number] Adonay MD: Patricia Pennington M.D. Measurements Intervals [place] Rate: 69 P: 54 [place]: 197 QRS: 53 QRSD: 83 T: 26 QT: 399 QTc: 429 Interpretive Statements SINUS RHYTHM NONSPECIFIC T-WAVE ABNORMALITY Compared to ECG 12/23/2021 10:20:36 No significant changes Electronically Signed On 12-23-2021 22:55:45 CDT by Patricia Pennington M.D. [id number]
[2021-12-23 13:45] LABS: Troponin 5 2HR Delta 0 ABS# (0-10)
[2021-12-23 14:51] LABS: Adenovirus Not Detected (NOT DETECT); Chlamydia Pneumoniae Not Detected (NOT DETECT); Coronavirus 229E,HKU1,NL63,OC4 Not Detected (NOT DETECT); Human Metapneumovirus Not Detected (NOT DETECT); Human Rhinovirus/Enterovirus Not Detected (NOT DETECT); Influenza A Not Detected (NOT DETECT); Influenza A H1 Not Detected (NOT DETECT); Influenza A H1-2009 Not Detected (NOT DETECT); Influenza A H3 Not Detected (NOT DETECT); Influenza B Not Detected (NOT DETECT); Mycoplasma Pneumoniae Not Detected (NOT DETECT); Parainfluenza Virus Type 1 Not Detected (NOT DETECT); Parainfluenza Virus Type 2 Not Detected (NOT DETECT); Parainfluenza Virus Type 3 Not Detected (NOT DETECT); Parainfluenza Virus Type 4 Not Detected (NOT DETECT); Respiratory Syncytial Virus A Detected (NOT DETECT); Respiratory Syncytial Virus B Not Detected (NOT DETECT); SARS-COV-2 Not Detected (NOT DETECT)
[2021-12-23 14:57] LABS: Respiratory Syncytial Virus A Detected (NOT DETECT); Respiratory Syncytial Virus B Not Detected (NOT DETECT); Results from Genmark
--- NOTE | 2021-12-23 16:02 | ECG_ITS ---
[facility] Test Date: 2021-12-23 Pat Name: Cami De La Rosa Department: Room: Gender: Female Operating Room Manager: : 1960 Requested By: Cain Prado Order Number: [id number] Reading MD: Patricia Pennington M.D. Measurements Intervals [place] Rate: 75 P: -7 [place]: 151 QRS: 56 QRSD: 86 T: -18 QT: 395 QTc: 441 Interpretive Statements SINUS RHYTHM NONSPECIFIC ST & T-WAVE ABNORMALITY Compared to ECG 12/23/2021 13:09:58 No significant changes Electronically Signed On 12-23-2021 22:56:50 CDT by Patricia Pennington M.D. [id number]
[2021-12-23 16:49] LABS: Troponin 5 6HR Delta 0 ng/L (0-12)
[2021-12-23] MEDS: sodium chloride 0.9% 1,000 ML 150 ML IV (18:59)
[2021-12-23] MEDS: guaiFENesin 600 mg Tablet PO (19:06)
[2021-12-23] MEDS: azithromycin 500 MG in sodium chloride 0.9% 250 ML 250 MG IV (19:07)
--- NOTE | 2021-12-23 21:16 | P.HP_ITS ---
Providers/Chief Complaint Admitting Physician: Mario Gaspar DO Primary Care Provider: María Mcnally MD Chief Complaint: sob History of Present Illness Cami De La Rosa is a 61 year old female with history of a stroke with residual right ankle weakness who presents with 3 weeks of myalgias Nausea and vomiting and shortness of breath. Patient was tested for COVID and negative. she was told that she had COPD and she quit smoking. She did not have any treatment. She had follow-up and was told she had pneumonia and treated with amoxicillin. She has continued to decline. Her pulse ox on room air in the emergency room was 85% on 2 L increased to the mid 90s. She denies any fever chills or sweats. She has some chronic orthopnea but she does not feel it is worsened. Her sym ptoms are worse with exertion. Its constant and progressively worsening. Patient's tobacco history is for 30years 63-51-fudo-year history. Review of Systems General: Reports: 10 or more systems reviewed and unremarkable except in HPI and below Medications/Allergies Home Medications Medication Instructions Recorded Confirmed Last Taken Type omeprazole 40 mg capsule,delayed 40 mg PO QAM 06/07/19 12/23/21 12/23/21 History release amlodipine 10 mg tablet 10 mg PO QAM 08/27/19 12/23/21 12/23/21 07:00 History obbfpal-lezbeagesxkwf-hpsvzkut 250 1 tab PO Q6H PRN Migraine Headache 12/30/20 12/23/21 Unknown History mg-250 mg-65 mg tablet (Excedrin Migraine) alprazolam 1 mg tablet (Xanax) 1 mg PO .COMPLEX PRN anxiety #75 11/24/21 12/23/21 Unknown Rx tabs trazodone 100 mg tablet 100 mg PO BEDTIME #30 tabs 11/24/21 12/23/21 Unknown Rx albuterol sulfate 90 mcg/actuation 2 puff inhalation Q4H PRN 12/23/21 12/23/21 Unknown History aerosol inhaler (ProAir HFA) Shortness Of Breath atorvastatin 20 mg tablet 20 mg PO BEDTIME 12/23/21 12/23/21 2 Weeks Ago History ~12/09/21 PT STOP TAKING citalopram 40 mg tablet (Celexa) 40 mg PO QAM 12/23/21 12/23/21 12/23/21 History disulfiram 250 mg tablet 250 mg PO QAM 12/23/21 12/23/21 12/23/21 History ibuprofen-diphenhydramine citrate 2 tab PO BEDTIME PRN Sleep 12/23/21 12/23/21 Unknown History 200 mg-38 mg tablet (Advil PM) metoprolol succinate 50 mg 100 mg PO QAM 12/23/21 12/23/21 12/23/21 History tablet,extended release 24 hr prednisone 20 mg tablet See Rx Instructions .Route .COMPLEX 12/23/21 12/23/21 Unknown History Allergies Allergy/AdvReac Type Severity Reaction Status Date / Time atorvastatin [From Lipitor] Allergy ADR-Cramping Verified 12/23/21 11:35 of the Muscles prednisone Allergy ADR-Agitate Verified 12/23/21 11:16 d Sulfa (Sulfonamide Allergy ALGY-Swell Verified 12/23/21 11:16 Antibiotics) Lip/Tongue/Throat PFSH Acute PFSH: Medical History Adhesive capsulitis Alcohol abuse Alcohol dependence, in remission Alcohol dependence, uncomplicated Anxiety Baseline state Cervical radiculopathy Generalized anxiety disorder Major depressive disorder Osteoarthritis of shoulder Panic disorder [episodic paroxysmal anxiety] Psychiatric care Surgical History No pertinent past surgical history Family History Other Hyperlipidemia Hypertension Denies family history of Psychiatric illness Suicide Stroke Social History Quit status (tobacco): has quit using tobacco Year quit tobacco: 2021 Former quit date comment: 4 weeks ago Alcohol intake: former Last alcohol use date: 07/08/21 Household members: spouse Housing: House Marital status: Vitals/I&O/Wt Last Vital Signs Temp 97.5 F L 12/23/21 19:42 Pulse 81 12/23/21 19:42 Resp 20 H 12/23/21 19:42 BP 99/56 12/23/21 19:42 Pulse Ox 94 12/23/21 19:42 O2 Del Method 12/23/21 18:44 O2 Flow Rate 2 12/23/21 18:44 Weight last 48 hrs Weight 63.049 kg Physical Exam Narrative: Patient appears her stated age of 61. She is in mild distress at t michele of exam. She has shortness of breath at rest. Neurologic alert and oriented to person place time and situation cranial nerves II through XII are grossly intact no focal deficit HEENT head is normocephalic atraumatic pupils equal round reactive to light and accommodation extraocular muscles are intact there is no scleral icterus mucous membranes are moist and pink Neck supple no JVD carotid bruits or lymphadenopathy Chest rises symmetrically with inspiration heart normal S1-S2 without murmurs clicks gallops or rubs Lungs diminished breath sounds throughout with expiratory wheezes and diminished breath sounds on expiration Abdomen soft nontender nondistended positive bowel sounds no hepatosplenomegaly Back no CVA tenderness or tenderness to spinous process no significant scoliosis Psych, patient's mood and affect is appropriate at this time. Skin warm and dry lesions or rashes Data : 12/23/21 10:40 12/23/21 10:40 A&P Assessment and plan (1) Acute exacerbation of chronic obstructive airways disease: Patient will be placed in observation she is be given IV fluids and IV antibiotics for COPD exacerbation. She will also be given steroids. Status: Acute (2) Smoker: Patient has just quit smoking 4 weeks ago. Status: Acute (3) Generalized anxiety disorder: Patient will be placed on her home regimen Status: Acute (4) Panic disorder [episodic paroxysmal anxiety]: As above Status: Acute (5) Hypoxia: Patient will be placed on 2 L nasal cannula and check for home oxygen application in a.m. Status: Acute Attestations Medical Necessity Statement*: Severely hypoxic requiring oxygen. She is actively and audibly wheezing. She is requiring hospitalization to manage. Coding Level of Care Code Acute Global Compensation Manager for [facility] Fwd Diagnoses Acute exacerbation of chronic obstructive airways disease J44.1 Smoker F17.200 Generalized anxiety disorder F41.1 Panic disorder [episodic paroxysmal anxiety] F41.0 Hypoxia R09.02
[2021-12-23] MEDS: trazodone 100 mg Tablet PO (21:36)
[2021-12-24] VITALS (8 sets, daily range): BP systolic 102–128; BP diastolic 67–83; PULSE 72–94; RESP 16–22; TEMP 36.1–37.1; O2SAT 86–96
[2021-12-24] MEDS: sodium chloride 0.9% 1,000 ML 150 ML IV ×2 (02:33→09:27)
[2021-12-24] MEDS: ipratropium-albuterol 3 mL Neb INHALATION ×2 (03:31→07:45)
[2021-12-24 05:45] LABS: Hematocrit 40.2 % (37.0-47.0); Lymphocytes % 23.6 %; Mean Corpuscular HGB Conc 32.3 g/dL (30.0-36.0); Mean Corpuscular Hemoglobin 30.5 pg (28.0-34.0); Mean Corpuscular Volume 94.4 fl (81-99); Mean Platelet Volume 9.4 fL (7.4-10.4); Monocytes # 0.2 10^3/uL (0.2-0.9); Monocytes % 3.9 %; Neutrophils # 3.14 10^3/uL (1.8-7.7); Neutrophils % 71.8 %; Nucleated Red Blood Cells % 0 %; Platelet Count 172 10^3/cmm (130-400); Red Blood Count 4.26 10^6/uL (4.1-5.3); Red Cell Distribution Width 12.2 % (12.1-15.1); White Blood Count 4.4 10^3/uL (4.0-10.0)
[2021-12-24 06:16] LABS: Blood Urea Nitrogen 9 mg/dL (8-23); Calcium 8.4 mg/dL (8.5-10.5); Carbon Dioxide 27 mmol/L (22-29); Chloride 106 mmol/L (98-107); Glomerular Filtration Rate 162.3 mL/min (90-130); Glucose 143 mg/dL (65-115); Osmolality Calculated 293 mOsm/kg (285-295); Sodium 141 mmol/L (136-145)
[2021-12-24 06:21] LABS: Anion Gap 12.4 (5-19); Potassium 4.4 mmol/L (3.5-5.1)
[2021-12-24] MEDS: amlodipine 10 mg Tablet PO (06:44)
[2021-12-24] MEDS: pantoprazole DR 40 mg Tablet PO (06:44)
[2021-12-24] MEDS: citalopram 20 mg Tablet 40 MG PO (06:44)
[2021-12-24] MEDS: acetaminophen 325 mg Tablet 650 MG PO (07:57)
[2021-12-24] MEDS: dilTIAZem ER (24HR) 180 mg Capsule PO (07:57)
[2021-12-24] MEDS: guaiFENesin 600 mg Tablet PO (07:57)
--- NOTE | 2021-12-24 10:48 | PM.DCS ---
Discharge Providers Date of Admission: 12/23/21 17:15 Date of Discharge: December 24, 2021 Attending Provider at Admission: Mario Gaspar DO Attending Provider at Discharge: Mario Gaspar DO Consults: none Primary Care Provider: María Mcnally MD Diagnoses at Discharge Discharge Diagnosis (1) Acute exacerbation of chronic obstructive airways disease: Status: Acute (2) Smoker: Status: Acute (3) Generalized anxiety disorder: Status: Acute (4) Panic disorder [episodic paroxysmal anxiety]: Status: Acute (5) Hypoxia: Status: Acute Reason for Visit Reason for Visit: sob Brief History: Patient has a 3 to 4-week history of difficulty breathing. At one time she was told she likely has COPD. She has had no treatment. He presented to the ER with same symptoms and found to be significantly hypoxic. She improved on oxygen and was placed on overnight observation Hospital Course Hospital Course Patient was placed on overnight observation she was given IV fluids IV antibiotics and steroids for COPD exacerbation use antibiotics for possible bronchitis. We stopped a beta-valeria due to COPD and changed to calcium channel valeria. Plan would be after she improves to pursue pulmonary function tests and possibly pulmonary consultation. If no improvement CAT scan of the chest may aid in diagnosis. She does qualify for home oxygen. She is discharging on prednisone 40 mg every morning for 4 days, Zithromax 500 mg daily for 4 more days. She will be on oxygen. She is to follow-up with her primary care physician after prednisone and Zithromax complete. She is off work until seen by her PCP. Physical Exam Narrative: NAD. Further shortness of breath Lungs diminished breath sounds throughout with expiratory wheezes and diminished breath sounds on expiratio, improved air movement Abdomen soft nontender nondistended positive bowel sounds no hepatosplenomegaly Extremities no clubbing cyanosis or edema Discharge Data Studies Completed and Pending Completed Studies During Hospitalization Category Date Time Status XR chest 1V portable [id number] Stat Exams 12/23/21 10:01 Completed Pending at discharge Category Date Time Status Sputum Culture and Gram Stain Stat Lab 12/23/21 10:29 Uncollected Radiology Impressions Chest X-Ray 12/23/21 10:01 Impression: Negative chest. Laboratory Results WBC 4.4 10^3/uL (4.0-10.0) 12/24/21 04:45 RBC 4.26 10^6/uL (4.1-5.3) 12/24/21 04:45 Hgb 13.0 g/dL (11.5-15.3) 12/24/21 04:45 Hct 40.2 % (37.0-47.0) 12/24/21 04:45 MCV 94.4 fl (81-99) 12/24/21 04:45 MCH 30.5 pg (28.0-34.0) 12/24/21 04:45 MCHC 32.3 g/dL (30.0-36.0) 12/24/21 04:45 RDW 12.2 % (12.1-15.1) 12/24/21 04:45 Plt Count 172 10^3/cmm (130-400) 12/24/21 04:45 MPV 9.4 fL (7.4-10.4) 12/24/21 04:45 Neut % (Auto) 71.8 % 12/24/21 04:45 Lymph % (Auto) 23.6 % 12/24/21 04:45 [place] % (Auto) 3.9 % 12/24/21 04:45 Eos % (Auto) 0.0 % 12/24/21 04:45 Baso % (Auto) 0.0 % 12/24/21 04:45 Neut # (Auto) 3.14 10^3/uL (1.8-7.7) 12/24/21 04:45 Lymph # (Auto) 1.0 10^3/uL (0.8-4.8) 12/24/21 04:45 [place] # (Auto) 0.2 10^3/uL (0.2-0.9) 12/24/21 04:45 Eos # (Auto) 0.0 10^3/uL (0.0-0.8) 12/24/21 04:45 Baso # (Auto) 0.0 10^3/uL (0.0-0.1) 12/24/21 04:45 Nucleated RBC % (auto) 0 % 12/24/21 04:45 Nucleated RBCs # 0.0 /100WBC 12/24/21 04:45 Specimen Type Arterial 12/23/21 10:16 Sample Site Brachial, left 12/23/21 10:16 ABG pH 7.36 (7.35-7.45) 12/23/21 10:16 ABG pCO2 50.9 mmHg (35-45) H 12/23/21 10:16 ABG pO2 71.0 mmHg (80.0-100.0) L 12/23/21 10:16 ABG HCO3 28.6 mmol/L (22-26) H 12/23/21 10:16 ABG O2 Saturation 95.1 12/23/21 10:16 ABG Base Excess 2.2 mmol/L (-2.0-2.0) H 12/23/21 10:16 Chung Test Pos 12/23/21 10:16 A-a O2 Gradient 2.2 mmHg (5-10) L 12/23/21 10:16 Hematocrit 40.7 % (37-47) 12/23/21 10:16 Hgb O2 Saturation 93.2 % (95-100) L 12/23/21 10:16 Carboxyhemoglobin 1.1 %THgb (0.4-20.1) 12/23/21 10:16 Methemoglobin 0.9 % (0.4-1.5) 12/23/21 10:16 Total Hemoglobin 13.3 g/dL (12-16) 12/23/21 10:16 Sodium 142.0 mmol/L (131-143) 12/23/21 10:16 Potassium 3.8 mmol/L (3.5-5.0) 12/23/21 10:16 Glucose 98.0 mg/dL (70-115) 12/23/21 10:16 Ionized Calcium 1.2 mmol/L (1.1-1.4) 12/23/21 10:16 O2 Delivery Device Nc 12/23/21 10:16 O2 Liters/Min 2.0 % 12/23/21 10:16 [employer]ing [employer] Polishing Wheel Repairer ID Cak 12/23/21 10:16 Sodium 141 mmol/L (136-145) 12/24/21 04:45 Potassium 4.4 mmol/L (3.5-5.1) 12/24/21 04:45 Chloride 106 mmol/L (98-107) 12/24/21 04:45 Carbon Dioxide 27 mmol/L (22-29) 12/24/21 04:45 Anion Gap 12.4 (5-19) 12/24/21 04:45 BUN 9 mg/dL (8-23) 12/24/21 04:45 Creatinine 0.4 mg/dL (0.5-0.9) L 12/24/21 04:45 GFR Calculation 162.3 mL/min (90-130) H 12/24/21 04:45 Glucose 143 mg/dL (65-115) H 12/24/21 04:45 Calculated Osmolality 293 mOsm/kg (285-295) 12/24/21 04:45 Calcium 8.4 mg/dL (8.5-10.5) L 12/24/21 04:45 Total Bilirubin 0.2 mg/dL (0.15-1.2) 12/23/21 10:40 AST 24 U/L (0-32) 12/23/21 10:40 ALT 36 U/L (0-33) H 12/23/21 10:40 Alkaline Phosphatase 96 U/L (35-105) 12/23/21 10:40 Troponin T Baseline 6 ng/L (0-10) 12/23/21 10:40 Troponin T 120 Minute 6.00 ng/L (0-10) 12/23/21 12:32 Delta Troponin T 0 ABS# (0-10) 12/23/21 12:32 Troponin T Hi Sens 6Hr 6.00 ng/L (0-10) 12/23/21 15:18 Troponin T Hi Sens 6Hr Delta 0 ng/L (0-12) 12/23/21 15:18 NT-Pro-B Natriuret Pep 359 pg/mL (0-125) H 12/23/21 10:40 Total Protein 6.3 g/dL (6.6-8.7) L 12/23/21 10:40 Albumin 3.4 g/dL (3.5-5.2) L 12/23/21 10:40 Globulin 2.9 g/dL (1.3-4.6) 12/23/21 10:40 Urine Color Yellow (Yellow) 12/23/21 10:55 Urine Appearance Clear (CLEAR) 12/23/21 10:55 Urine pH 5 (5-7) 12/23/21 10:55 Ur Specific [place] 1.020 (1.005-1.030) 12/23/21 10:55 Urine Protein Neg (Negative) 12/23/21 10:55 Urine Glucose (UA) Norm (Normal) 12/23/21 10:55 Urine Ketones 1+ (Negative) H 12/23/21 10:55 Urine Blood Neg (Negative) 12/23/21 10:55 Urine Nitrate Negative (Negative) 12/23/21 10:55 Urine Bilirubin Neg (Negative) 12/23/21 10:55 Urine Urobilinogen 1 mg/dL (Negative) H 12/23/21 10:55 Ur Leukocyte Esterase Negative (Negative) 12/23/21 10:55 Coronavirus 229E (PCR) Not detected (NOT DETECT) 12/23/21 12:45 RSV Type A (PCR) Detected (NOT DETECT) A 12/23/21 14:56 RSV Type B (PCR) Not detected (NOT DETECT) 12/23/21 14:56 SARS-CoV-2 (PCR) Not detected (NOT DETECT) 12/23/21 12:45 Imaging CXR: Radiologist's impression: Impression: Negative chest. Vitals Last Vital Signs Temp 98.0 F 12/24/21 07:52 Pulse 94 12/24/21 07:52 Resp 16 12/24/21 07:52 BP 127/83 12/24/21 07:52 Pulse Ox 90 12/24/21 07:52 O2 Del Method 12/24/21 07:52 O2 Flow Rate 2 12/24/21 07:52 Discharge Plan Discharge Patient Disposition: Home Condition: Stable Prescriptions: New diltiazem HCl [DILT-XR] 180 mg Capsule,Ext.Rel 24h Degradable 180 mg PO DAILY Qty: 30 0RF prednisone 20 mg tablet 40 mg PO DAILY 4 Days Qty: 8 0RF guaifenesin [Mucinex] 600 mg Tablet Extended Release 12hr 600 mg PO BID Qty: 60 0RF azithromycin [Zithromax] 500 mg tablet 500 mg PO DAILY Qty: 4 0RF Continued amlodipine 10 mg tablet 10 mg PO QAM trazodone 100 mg tablet 100 mg PO BEDTIME Qty: 30 2RF alprazolam [Xanax] 1 mg tablet 1 mg PO .COMPLEX PRN (Reason: anxiety) Qty: 75 2RF Rx Instructions: 1mg by mouth 2-3 times daily as needed for anxiety. A quantity of 75 to last 30 days. omeprazole 40 mg Capsule,Delayed Release(Dr/Ec) 40 mg PO QAM Excedrin Migraine 250-250-65 mg tablet 1 tab PO Q6H PRN (Reason: Migraine Headache) atorvastatin 20 mg tablet 20 mg PO BEDTIME prednisone 20 mg tablet See Rx Instructions .ROUTE .COMPLEX Rx Instructions: 40MG PO DAILY FOR 5 DAYS, 20MG DAILY FOR 5 DAYS THEN 10MG DAILY FOR 5 DAYS (RX FILLED 12/21/21 15D/S) ProAir HFA 90 mcg/actuation HFA aerosol inhaler 2 puff INHALATION Q4H PRN (Reason: Shortness Of Breath) Advil PM 200-38 mg Tablet 2 tab PO BEDTIME PRN (Reason: Sleep) Celexa 40 mg tablet 40 mg PO QAM disulfiram 250 mg tablet 250 mg PO QAM Discontinued metoprolol succinate 50 mg tablet extended release 24 hr 100 mg PO QAM Discharge Orders: Discharge Order (Routine); Ordered 12/24/21 Ordered By: Mario Gaspar Referrals: María Mcnally MD [Primary Care Provider] - Discharge Diet: Advance as tolerated Discharge Activity: Increase activity as tolerated and Return to work/school after cleared by PCP/Specialist Activity Restrictions/Additional Instructions: You have been diagnosed with bronchitis with suspected underlying chronic obstructive pulmonary disease. Be taking prednisone and Zithromax for 4 more days. The see your PCP in 4 to 5 days. At that time inhalers may be prescribed. As we discussed once you are stable and improved with your breathing you can undergo pulmonary function tests. Please note I discontinued your beta-valeria as it can affect breathing function and change due to a new calcium channel valeria for your blood pressure. Discharge Attestations Time Spent in Discharge Care*: greater than 30 min Quality Metrics Clinical Quality Measures [ No reported AMI, CVA or VTE this stay] Coding Level of Care Code Acute g DC note Diagnoses Acute exacerbation of chronic obstructive airways disease J44.1 Smoker F17.200 Generalized anxiety disorder F41.1 Panic disorder [episodic paroxysmal anxiety] F41.0 Hypoxia R09.02
== END 2021-12-24 13:40 | disposition home or self-care (01) ==
LOC: ER 10:29 → MEDSURG 16:43
PROVIDERS: Admitting Provider Internal Medicine; Emergency Provider Family Medicine; PCP Family Medicine; Visit Provider Internal Medicine
DX: J44.1 Chronic obstructive pulmonary disease with (acute) exacerbation (principal); F17.200 Nicotine dependence, unspecified, uncomplicated; F41.1 Generalized anxiety disorder; F41.0 Panic disorder [episodic paroxysmal anxiety]; R09.02 Hypoxemia; I69.851 Hemiplegia and hemiparesis following other cerebrovascular disease affecting right dominant side
CPT/HCPCS: 36415; 36600; 71045; 80048; 80051; 80053; 81003; 82330; 82805; 83880; 84484; 85025; 87635; 87801; 93005; 94640; 94760; 96374; 96376; 99285; G0378; J0456; J2920; J2930; J7030; J7050

== ENCOUNTER 2022-10-26 11:52 | Outpatient (CLI) | payer MEDICAID, SELFPAY ==
--- NOTE | 2022-10-26 11:58 | MM_ITS ---
WS: [id number] BILATERAL 3D TOMOSYNTHESIS DIGITAL SCREENING MAMMOGRAPHY WITH CAD CLINICAL INFORMATION: SCREEN HISTORY: Screening mammogram. No current complaints. COMPARISON: 2021 TECHNIQUE: Bilateral CC and MLO views. FINDINGS: Scattered fibroglandular densities bilaterally. No suspicious focal mass, asymmetry, calcifications, or architectural distortion. No evidence of malignancy. Incidental punctate calcifications. MM/[id number] IMPRESSION: BI-RADS: 2-Benign FOLLOW UP: 1 Year Follow-up Recommend return to annual screening mammography.
== END 2022-10-26 11:53 | disposition home or self-care (01) ==
LOC: RAD 11:54
PROVIDERS: PCP Family Medicine; Visit Provider Family Medicine
DX: Z12.31 Encounter for screening mammogram for malignant neoplasm of breast (principal)
CPT/HCPCS: 77063; 77067

== ENCOUNTER 2022-12-15 12:57 | Outpatient (CLI) | payer MEDICAID, SELFPAY ==
--- NOTE | 2022-12-15 13:09 | XR_ITS ---
WS: [id number] DEXA (DUAL ENERGY X-RAY ABSORPTIOMETRY) Bone mineral density was performed using a [employer] machine. HISTORY: POSTMENOPAUSAL COMPARISON: None available. Lumbar spine BMD (L1-L4): 0.963 g/cm2 T score: -1.8 Z score: -0.4 Total hip BMD: Left: 0.823 g/cm2. T score: -1.5 Z score: -0.4 Right: 0.773 g/cm2. T score: -1.9 Z score: -0.8 10 year probability of a major osteoporotic fracture is 23.3%. IMPRESSION: OSTEOPENIA based upon the WHO classification for females.
== END 2022-12-15 12:58 | disposition home or self-care (01) ==
PROVIDERS: PCP Family Medicine; Visit Provider Family Medicine
DX: Z78.0 Asymptomatic menopausal state (principal); M85.80 Other specified disorders of bone density and structure, unspecified site
CPT/HCPCS: 77080

== ENCOUNTER 2023-09-08 13:28 | Emergency (ER) | payer OTHER, MEDICAID, SELFPAY ==
[2023-09-08 13:36] VITALS: BP 91/67; PULSE 111; RESP 16; TEMP 36.6; O2SAT 95; BMI 27.0
--- NOTE | 2023-09-08 14:23 | CTR_ITS ---
PROCEDURE INFORMATION: Exam: CT Abdomen And Pelvis With Contrast Exam date and time: 09/08/2023 3:10 PM Age: 63 years old Clinical indication: Nausea and vomiting; Abdominal pain; Localized; Lower; Patient HX: Bloody stools; Additional info: Abd pain TECHNIQUE: Imaging protocol: Computed tomography of the abdomen and pelvis with contrast. Radiation optimization: All CT scans at this facility use at least one of these dose optimization techniques: automated exposure control; mA and/or kV adjustment per patient size (includes targeted exams where dose is matched to clinical indication); or iterative reconstruction. Contrast material: OMNI 350; Contrast volume: 100 ml; Contrast route: INTRAVENOUS (IV); COMPARISON: CR XR hip RT 2-3V wo/w pel* [id number] 08/06/2021 11:49 RADIATION DOSE METRICS: Total DLP (mGy-cm): 466 FINDINGS: Liver: Hepatic steatosis. Gallbladder and bile ducts: Normal. No calcified stones. No ductal dilation. Pancreas: Normal. No ductal dilation. Spleen: Normal. No splenomegaly. Adrenal glands: Normal. No mass. Kidneys and ureters: 13 mm simple appearing right renal cortical cyst. This cyst does not appear to require imaging follow-up. Stomach and bowel: The ascending colon and proximal transverse colon are normal. There is significant mural thickening of the distal transverse colon, descending colon and sigmoid colon. The findings suggest infectious versus inflammatory colitis. Appendix: No evidence of appendicitis. Intraperitoneal space: Trace free fluid in the deep pelvis. Vasculature: Widely patent mesenteric arteries. Lymph nodes: Unremarkable. No enlarged lymph nodes. Urinary bladder: Unremarkable as visualized. Reproductive: Unremarkable as visualized. Bones/joints: Unremarkable. No acute fracture. Soft tissues: Unremarkable. CT/CT abdomen pelvis w con* [id number] IMPRESSION: 1. Extensive colonic mural thickening from the distal transverse colon to the sigmoid colon. The findings suggest infectious versus inflammatory colitis. The mesenteric arteries are widely patent making ischemic colitis unlikely 2. Trace pelvic free fluid 3. Hepatic steatosis COMMENTS: Consistent with the [employer]'s Incidental Findings Committee white paper (J Am Krzysztof Radiol 2018): Any incidental renal lesion less than 1 cm or classified as too small to characterize, or any incidental cystic renal lesion characterized as simple-appearing, is likely benign. No follow-up imaging is recommended for these lesions per consensus recommendations based on imaging criteria.
--- NOTE | 2023-09-08 14:31 | ED_ITS ---
HPI - GI Bleed 2 General: Chief complaint: GI Bleed Stated complaint: N/V/D, rectal bleeding Time Seen by Provider: 09/08/23 14:22 Source: patient Mode of arrival: ambulatory History of Present Illness: 63-year-old female presents emergency ro om with lower abdominal pain nausea vomiting diarrhea began last night. She had some bright red blood in her stool with clots during the day today she had 2 episodes of bloody diarrhea. She denies any previous history of GI bleed. Her past history includes history of alcohol use. She also is complaining of very contracted urine denies chest pain or shortness of breath no dysuria urgency or frequency MD complaint: gross hematochezia Onset (ago): minute(s) Pain Consistency: constant Severity: mild Relieving factors: none Exacerbating factors: none Associated symptoms: Denies abdominal pain, chills, easy bruising, epistaxis, fever(s), headache(s), malaise, nausea, other bleeding, poor appetite, rash, syncope, vomiting or weakness Review of Systems 2 Const: Denies: fever(s), chills or malaise ENMT: Denies: epistaxis Card: Denies: chest pain or syncope Resp: Denies: dyspnea GI: Denies: abdominal pain, nausea or vomiting : Denies: dysuria, urinary frequency or urinary urgency Musc: Denies: neck pain or back pain Skin/Breast: Denies: rash Neuro: Denies: headache(s) Kranthi/Lymph: Denies: easy bruising PFSH ED 2 PFSH: Medical History Alcohol dependence, in remission Baseline state Psychiatric care Alcohol dependence, uncomplicated Smoker Cervical radiculopathy Adhesive capsulitis Osteoarthritis of shoulder Alcohol abuse Major depressive disorder Anxiety Generalized anxiety disorder Panic disorder [episodic paroxysmal anxiety] Surgical History No pertinent past surgical history Family History Other Hyperlipidemia Hypertension Denies family history of Psychiatric illness Suicide Stroke Social History Quit status (tobacco/nicotine): has quit using Year quit tobacco: 2021 Former quit date comment: 4 weeks ago Alcohol intake: former Substance/Drug Use: never Household members: spouse Housing: House Marital status: Physical Exam 2 Const: COMMON NORMALS: no acute distress GENERAL APPEARANCE: cooperative and comfortable ORIENTATION/CONSCIOUSNESS: Yes awake, Yes oriented to person, Yes oriented to place and Yes oriented to time HENMT: COMMON NORMALS: normocephalic, atraumatic and hearing grossly normal bilaterally HEAD & SCALP: normocephalic and atraumatic Resp: COMMON NORMALS: normal respiratory effort, No retractions, No use of accessory muscles and clear to auscultation bilaterally AUSCULTATION: clear to auscultation bilaterally Cardio: COMMON NORMALS: regular rate, regular rhythm and No murmurs present (Cardio) RATE: regular rate RHYTHM: regular rhythm GI: COMMON NORMALS: Soft to palpation and No hepatosplenomegaly present A USCULTATION: Yes normoactive bowel sounds PALPATION: Yes Soft to palpation, No Tenderness to palpation present (GI), No Guarding due to palpation present (GI) and Yes No hepatosplenomegaly present Extremity: COMMON NORMALS: normal to inspection, capillary refill normal, no clubbing, cyanosis or edema, no calf tenderness and no pedal edema Neuro: SENSORIUM/ORIENTATION: Yes oriented to person, Yes oriented to place and Yes oriented to time Skin: COMMON NORMALS: no rashes or lesions noted GENERAL SKIN EXAM: no rashes or lesions noted Course 2 Vital Signs: Vital signs: Vital Signs Temperature 97.9 F 09/08/23 13:36 Pulse Rate 104 H 09/08/23 16:06 Respiratory Rate 16 09/08/23 13:36 Blood Pressure 125/71 09/08/23 16:06 Pulse Oximetry 98 09/08/23 16:06 Oxygen Delivery Me thod Room Air 09/08/23 16:06 MDM - GI Bleed Medical Decision Making CT shows colitis hemoglobin stable. Discharge patient home on Cipro and Flagyl promethazine as needed clear liquid diet for 48 hours and advance as tolerated. Patient reports she previously had colonoscopy but it was around the age of 50. Patient encouraged follow-up with primary care doctor in 10 to 14 days. If symptoms worsen or change return to the emergency room Medical Records I reviewed the patient's medical records. Lab Data I reviewed the patient's lab results. 09/08/23 14:00 09/08/23 14:00 Radiology Impressions Abdomen/Pelvis CT 09/08/23 14:23 IMPRESSION: 1. Extensive colonic mural thickening from the distal transverse colon to the sigmoid colon. The findings suggest infectious versus inflammatory colitis. The mesenteric arteries are widely patent making ischemic colitis unlikely 2. Trace pelvic free fluid 3. Hepatic steatosis COMMENTS: Consistent with the [employer]'s Incidental Findings Committee white paper (J Am Krzysztof Radiol 2018): Any incidental renal lesion less than 1 cm or classified as too small to characterize, or any incidental cystic renal lesion characterized as simple-appearing, is likely benign. No follow-up imaging is recommended for these lesions per consensus recommendations based on imaging criteria. Laboratory Results WBC 21.37 10^3/uL (3.29-11.43) H 09/08/23 14:00 RBC 5.29 10^6/uL (3.85-5.65) 09/08/23 14:00 Hgb 16.30 g/dL (11.27-16.99) 09/08/23 14:00 Hct 48.3 % (36-47) H 09/08/23 14:00 MCV 91.3 fl (85-98) 09/08/23 14:00 MCH 30.8 pg (27-33) 09/08/23 14:00 MCHC 33.7 g/dL (30-55) 09/08/23 14:00 RDW 12.9 % (12.1-15.1) 09/08/23 14:00 Plt Count 395 10^3/cmm (157-399) 09/08/23 14:00 MPV 8.7 fL (7.4-10.4) 09/08/23 14:00 Neut % (Auto) 80.6 % 09/08/23 14:00 Lymph % (Auto) 11.7 % 09/08/23 14:00 [place] % (Auto) 6.7 % 09/08/23 14:00 Eos % (Auto) 0.2 % 09/08/23 14:00 Baso % (Auto) 0.2 % 09/08/23 14:00 Neut # (Auto) 17.22 10^3/uL (1.8-7.7) H 09/08/23 14:00 Lymph # (Auto) 2.5 10^3/uL (0.8-4.8) 09/08/23 14:00 [place] # (Auto) 1.4 10^3/uL (0.2-0.9) H 09/08/23 14:00 Eos # (Auto) 0.1 10^3/uL (0.0-0.8) 09/08/23 14:00 Baso # (Auto) 0.1 10^3/uL (0.0-0.1) 09/08/23 14:00 Nucleated RBC % (auto) 0 % 09/08/23 14:00 Nucleated RBCs # 0.0 /100WBC 09/08/23 14:00 PT 12.70 SECONDS (12.1-14.9) 09/08/23 14:00 INR 0.92 (0.8-1.2) 09/08/23 14:00 APTT 25.8 SECONDS (23.9-36.7) 09/08/23 14:00 Sodium 134 mmol/L (136-145) L 09/08/23 14:00 Potassium 3.7 mmol/L (3.5-5.1) 09/08/23 14:00 Chloride 96 mmol/L (98-107) L 09/08/23 14:00 Carbon Dioxide 26 mmol/L (22-29) 09/08/23 14:00 Anion Gap 15.7 (5-19) 09/08/23 14:00 BUN 17 mg/dL (8-23) 09/08/23 14:00 Creatinine 0.8 mg/dL (0.5-0.9) 09/08/23 14:00 GFR Calculation 72.4 mL/min (90-130) L 09/08/23 14:00 Glucose 158 mg/dL (65-115) H 09/08/23 14:00 Calculated Osmolality 283 mOsm/kg (285-295) L 09/08/23 14:00 Lactic Acid 3.1 mmol/L (0.5-2.2) H 09/08/23 14:00 Calcium 8.7 mg/dL (8.5-10.5) 09/08/23 14:00 Total Bilirubin 0.6 mg/dL (0.15-1.2) 09/08/23 14:00 AST 17 U/L (0-32) 09/08/23 14:00 ALT 34 U/L (0-33) H 09/08/23 14:00 Alkaline Phosphatase 92 U/L (35-105) 09/08/23 14:00 C-Reactive Protein 98.1 mg/L (0.0-4.9) H 09/08/23 14:00 Total Protein 6.8 g/dL (6.6-8.7) 09/08/23 14:00 Albumin 3.8 g/dL (3.5-5.2) 09/08/23 14:00 Globulin 3.0 g/dL (1.3-4.6) 09/08/23 14:00 Lipase 60 U/L (13-60) 09/08/23 14:00 Urine Color Yellow (Yellow) 09/08/23 14:07 Urine Appearance Clear (CLEAR) 09/08/23 14:07 Urine pH 6 (5-7) 09/08/23 14:07 Ur Specific [place] 1.015 (1.005-1.030) 09/08/23 14:07 Urine Protein Neg (Negative) 09/08/23 14:07 Urine Glucose (UA) Norm (Normal) 09/08/23 14:07 Urine Ketones Negative (Negative) 09/08/23 14:07 Urine Blood Neg (Negative) 09/08/23 14:07 Urine Nitrate Negative (Negative) 09/08/23 14:07 Urine Bilirubin Neg (Negative) 09/08/23 14:07 Urine Urobilinogen Norm mg/dL (Negative) 09/08/23 14:07 Ur Leukocyte Esterase Negative (Negative) 09/08/23 14:07 Urine RBC None /hpf (0-2) 09/08/23 14:07 Urine WBC 0-4 /hpf (0-5) H 09/08/23 14:07 Ur Squamous Epith Cells 0-4 /hpf (0-5) H 09/08/23 14:07 Amorphous Sediment Not Reportable 09/08/23 14:07 Urine Bacteria Trace /hpf (NONE) 09/08/23 14:07 Ethyl Alcohol < 10 mg/dL (0-10) 09/08/23 14:00 All radiology interpretation(s) finalized by discharge Discharge Plan Discharge Patient Disposition: Home Clinical Impression: Colitis Condition: Stable Prescriptions: New ciprofloxacin HCl 500 mg tablet 500 mg PO BID Qty: 14 0RF metronidazole 500 mg tablet 500 mg PO BID 7 Days Qty: 14 0RF promethazine 25 mg tablet 25 mg PO Q6H PRN (Reason: nausea and vomiting) Qty: 20 0RF No Action amlodipine 10 mg tablet 10 mg PO QAM citalopram [Celexa] 20 mg tablet 20 mg PO DAILY Qty: 30 2RF alprazolam [Xanax] 1 mg tablet 1 mg PO .COMPLEX PRN (Reason: anxiety) Qty: 75 2RF Rx Instructions: 1mg by mouth 2-3 times daily as needed for anxiety. A quantity of 75 to last 30 days. trazodone 100 mg tablet 200 mg PO BEDTIME Qty: 60 2RF omeprazole 40 mg Capsule,Delayed Release(Dr/Ec) 40 mg PO QAM Excedrin Migraine 250-250-65 mg tablet 1 tab PO Q6H PRN (Reason: Migraine Headache) amitriptyline 25 mg tablet 25 mg PO DAILY metoprolol succinate 25 mg tablet extended release 24 hr 25 mg PO DAILY Advil PM 200-38 mg Tablet 2 tab PO BEDTIME PRN (Reason: Sleep) Discharge Orders: Discharge ED (Routine); Ordered 09/08/23 Ordered By: Cain Ricks Referrals: María Mcnally MD [Primary Care Provider] - Discharge Diet: Clear Liquid Discharge Activity: Resume usual activity Patient Instructions: Opioid Safety, Pain Management Activity Restrictions/Additional Instructions: Thank you for choosing [facility] for your healthcare needs today. Please realize this is an emergency room and that we are providing you with a medical screening exam and this may not be complete and all inclusive of all the testing and or work up that you may need to determine your ailment or severity of your illness. It is very important that you follow up as instructed or that you return to the Emergency Department should you have concerns or if your condition changes or worsens in any way. You were seen today with rectal bleeding your hemoglobin is stable at 16.3 g/dL. Your rectal bleeding is likely coming from the colitis that was noted on the CT. Recommend you follow clinical diet for the next 48 hours and advance as tolerated. You can use promethazine as needed for nausea. Recommend you start Cipro and metronidazole for the colitis and follow-up with your doctor within the next week. If symptoms worsen return to the emergency room Coding Level of Care Code ED Grading Clerk for Jason Smith
[2023-09-08 14:35] LABS: Basophils # 0.1 10^3/uL (0.0-0.1); Basophils % 0.2 %; Eosinophils # 0.1 10^3/uL (0.0-0.8); Eosinophils % 0.2 %; Hematocrit 48.3 % (36-47); Lymphocytes # 2.5 10^3/uL (0.8-4.8); Lymphocytes % 11.7 %; Mean Corpuscular HGB Conc 33.7 g/dL (30-55); Mean Corpuscular Hemoglobin 30.8 pg (27-33); Mean Corpuscular Volume 91.3 fl (85-98); Mean Platelet Volume 8.7 fL (7.4-10.4); Monocytes # 1.4 10^3/uL (0.2-0.9); Monocytes % 6.7 %; Neutrophils # 17.22 10^3/uL (1.8-7.7); Neutrophils % 80.6 %; Nucleated Red Blood Cells % 0 %; Platelet Count 395 10^3/cmm (157-399); Red Blood Count 5.29 10^6/uL (3.85-5.65); Red Cell Distribution Width 12.9 % (12.1-15.1); White Blood Count 21.37 10^3/uL (3.29-11.43)
[2023-09-08 14:36] LABS: Bacteria Urine TRACE /hpf; Bilirubin Urine Neg (Negative); Blood Urine Neg (Negative); Glucose Urine UA Norm (Normal); Ketones Urine Negative (Negative); Leukocyte Esterase Urine Negative (Negative); Nitrate Urine Negative (Negative); Protein Urine Neg (Negative); Specific Gravity, Urine 1.015 (1.005-1.030); Squamous Epithelial Cell Urine 0-4 /hpf (0-5); Urine Appearance Clear (CLEAR); Urine Color Yellow (Yellow); Urobilinogen Urine Norm (Negative); WBC Urine 0-4 /hpf (0-5); pH Urine 6 (5-7)
[2023-09-08 14:37] LABS: Add Urine Culture? No
[2023-09-08 14:47] VITALS: BP 114/63; PULSE 104; O2SAT 96
[2023-09-08 14:54] LABS: Lactic Sepsis W/Reflex 3.1 mmol/L (0.5-2.2)
[2023-09-08 14:55] LABS: Alanine Aminotransferase 34 U/L (0-33); Albumin Level 3.8 g/dL (3.5-5.2); Alkaline Phosphatase 92 U/L (35-105); Anion Gap 15.7 (5-19); Aspartate Amino Transferase 17 U/L (0-32); Blood Urea Nitrogen 17 mg/dL (8-23); C Reactive Protein 98.1 mg/L (0.0-4.9); Calcium 8.7 mg/dL (8.5-10.5); Carbon Dioxide 26 mmol/L (22-29); Chloride 96 mmol/L (98-107); Creatinine Clr Calc Pharmacy 69.0645; Glomerular Filtration Rate 72.4 mL/min (90-130); Glucose 158 mg/dL (65-115); Lipase 60 U/L (13-60); Osmolality Calculated 283 mOsm/kg (285-295); Potassium 3.7 mmol/L (3.5-5.1); Sodium 134 mmol/L (136-145); Total Bilirubin 0.6 mg/dL (0.15-1.2); Total Protein 6.8 g/dL (6.6-8.7)
[2023-09-08 14:59] LABS: INR 0.92 (0.8-1.2)
[2023-09-08 15:00] LABS: Partial Thromboplastin Time 25.8 SECONDS (23.9-36.7)
[2023-09-08 15:03] LABS: Alcohol Level < 10 mg/dL (0-10)
[2023-09-08] MEDS: iohexol 350 mg/mL 500 mL Btl (per mL) IV (15:08)
[2023-09-08 16:06] VITALS: BP 125/71; PULSE 104; O2SAT 98
[2023-09-08 16:18] LABS: Reflex Lactate Order REFLEX LACTIC ORDERD
[2023-09-08 16:54] VITALS: BP 125/71; PULSE 104; RESP 16; TEMP 36.6; O2SAT 98
== END 2023-09-08 16:56 | disposition home or self-care (01) ==
PROVIDERS: Emergency Medicine; Emergency Provider Family Medicine; PCP Family Medicine
DX: K52.9 Noninfective gastroenteritis and colitis, unspecified (principal); Z87.891 Personal history of nicotine dependence
CPT/HCPCS: 36415; 74177; 80053; 80307; 81001; 83605; 83690; 85025; 85610; 85730; 86140; 99285; Q9967

== ENCOUNTER 2023-11-07 10:06 | Outpatient (CLI) | payer OTHER, MEDICAID, SELFPAY ==
--- NOTE | 2023-11-07 10:13 | MM_ITS ---
WS: [id number] BILATERAL 3D TOMOSYNTHESIS DIGITAL SCREENING MAMMOGRAPHY WITH CAD CLINICAL INFORMATION: SCREENING HISTORY: Screening mammogram. No current complaints. COMPARISON: 2022 TECHNIQUE: Bilateral CC and MLO views. FINDINGS: Scattered fibroglandular densities bilaterally. No suspicious focal mass, asymmetry, calcifications, or architectural distortion. No evidence of malignancy. A few tiny incidental punctate calcifications . Vascular calcifications. MM/[id number] IMPRESSION: BI-RADS: 2-Benign FOLLOW UP: 1 Year Follow-up Recommend return to annual screening mammography.
== END 2023-11-07 10:07 | disposition home or self-care (01) ==
LOC: RAD 10:06
PROVIDERS: PCP Family Medicine; Visit Provider Family Medicine
DX: Z12.31 Encounter for screening mammogram for malignant neoplasm of breast (principal); R92.323 Mammographic fibroglandular density, bilateral breasts; R92.1 Mammographic calcification found on diagnostic imaging of breast
CPT/HCPCS: 77063; 77067

== ENCOUNTER 2024-11-14 11:11 | Outpatient (CLI) | payer OTHER, MEDICAID, SELFPAY ==
--- NOTE | 2024-11-14 11:16 | MM_ITS ---
WS: [id number] BILATERAL 3D TOMOSYNTHESIS DIGITAL SCREENING MAMMOGRAPHY WITH CAD CLINICAL INFORMATION: SCREENING HISTORY: Screening mammogram. No current complaints. COMPARISON: 2023 TECHNIQUE: Bilateral CC and MLO views. FINDINGS: Scattered fibroglandular densities bilaterally. No suspicious focal mass, asymmetry, calcifications, or architectural distortion. No evidence of malignancy. Vascular calcification. MM/MM scr tomosynthesis [id number] IMPRESSION: DENSITY: There are scattered areas of fibroglandular density. BI-RADS: 2 - Benign. FOLLOW UP: 1 Year Follow-up Recommend return to annual screening mammography.
== END 2024-11-14 11:12 | disposition home or self-care (01) ==
LOC: RAD 11:12
PROVIDERS: PCP Family Medicine; Visit Provider Family Medicine
DX: Z12.31 Encounter for screening mammogram for malignant neoplasm of breast (principal); R92.323 Mammographic fibroglandular density, bilateral breasts; R92.1 Mammographic calcification found on diagnostic imaging of breast
CPT/HCPCS: 77063; 77067